=== PATIENT | male | born 1925 | race Caucasian/White ===

== ENCOUNTER 2016-11-21 14:17 | Emergency (ER) | payer MEDICARE ==
--- NOTE | 2016-11-21 14:57 | ER Document Report ---
ED Fall - General Chief Complaint: Back Injury Stated Complaint: FALL LEG AND BACK PAIN Mode of Arrival: Medic Information source: Patient TRAVEL OUTSIDE OF THE [place] IN LAST 30 DAYS: No - HPI Patient complains to provider of: FALL, BACK PAIN Occurred: Just prior to arrival Where: Home Context: Tripped, Fell from standing Associated symptoms: None. denies: Lost consciousness, Became dizzy/fainted Location of injury/pain: Back - R. LOWER Quality of pain: Dull, Sharp - WHEN MOVING Severity: Moderate Prehospital interventions: IV. No: C-collar, Backboard Notes: Patient fell and struck wall with such force that the wallboard was broken. - Related data Allergies/Adverse Reactions: No Known Allergies Allergy (Verified 11/21/16 14:30) Past Medical History - General Information source: Patient - Social History Smoking Status: Never Smoker Cigarette use (# per day): No Chew tobacco use (# tins/day): No Frequency of alcohol use: Rare Drug Abuse: None Family History: Reviewed & Not Pertinent Patient has suicidal ideation: No Patient has homicidal ideation: No - Past Medical History Cardiac Medical History: Reports: Hx Hypertension Pulmonary Medical History: Reports: None Endocrine Medical History: Reports: Hx Diabetes Mellitus Type 2 Renal/ Medical History: Reports: Hx Benign Prostatic Hyperplasia Malignancy Medical History: Reports None GI Medical History: Reports: None Musculoskeltal Medical History: Reports Hx Arthritis Psychiatric Medical History: Reports: Hx Depression Past Surgical History: Reports: Hx Cholecystectomy, Hx Orthopedic Surgery - right knee replacement. Denies: Hx Open Heart Surgery - Immunizations Hx Diphtheria, Pertussis, Tetanus Vaccination: No Hx Pneumococcal Vaccination: 07/02/09 Review of Systems - Review of Systems Constitutional: No symptoms reported EENT: No symptoms reported Cardiovascular: No symptoms reported Respiratory: No symptoms reported Gastrointestinal: No symptoms reported Genitourinary: No symptoms reported Musculoskeletal: See HPI. denies: Neck pain Skin: No symptoms reported Neurological/Psychological: No symptoms reported Physical Exam - Vital signs Vitals: Resp 20 11/21/16 14:20 Interpretation: Hypertensive. No: Tachycardic, Tachypneic - General General appearance: Appears well, Alert In distress: None Notes: OBVIOUS PAIN W/ MOVEMENT OF TORSO - HEENT Head: Normocephalic Eyes: Normal Conjunctiva: Normal Ears: Normal Nasal: Normal Mouth/Lips: Normal Mucous membranes: Normal Neck: Normal, Supple - Respiratory Respiratory status: No respiratory distress - Cardiovascular Rhythm: Regular - Abdominal Inspection: Normal Distension: No distension - Back Back: Normal, Tender - R. CVA AND LUMBAR PARASPINOUS - Extremities General upper extremity: Normal inspection General lower extremity: Normal inspection - Neurological Neuro grossly intact: Yes Cognition: Normal Orientation: AAOx4 - Psychological Associated symptoms: Normal affect, Normal mood - Skin Skin Temperature: Warm Skin Moisture: Dry Skin Color: Normal Skin Turgor: Elastic Course - Vital Signs Vital signs: Temp Pulse Resp BP Pulse Ox 97.5 F 77 20 158/56 H 96 11/21/16 14:29 11/21/16 14:29 11/21/16 14:29 11/21/16 14:29 11/21/16 14:29 - Laboratory Result Diagrams: 11/21/16 15:09 11/21/16 15:09 Laboratory results interpreted by me: 11/21/16 11/21/16 15:09 15:09 RBC 4.31 L Hgb 12.0 L Hct 36.2 L RDW 15.0 H BUN 35 H Discharge - Discharge Clinical Impression: Fall at home Qualifiers: Encounter type: initial encounter Qualified Code(s): W19.XXXA - Unspecified fall, initial encounter; Y92.099 - Unspecified place in other non-institutional residence as the place of occurrence of the external cause Contusion of lower back Qualifiers: Encounter type: initial encounter Qualified Code(s): S30.0XXA - Contusion of lower back and pelvis, initial encounter Condition: Stable Disposition: HOME, SELF-CARE Instructions: Ice Packs ([facility]), Low Back Pain ([facility]), Oral Narcotic Medication ( [facility]), Contusion ([facility]) Additional Instructions: REST, AVOID PAINFUL ACTIVITY. ICE PACKS TO PAINFUL AREAS TO REDUCE PAIN AND SWELLING. TAKE TYLENOL IF NEEDED FOR PAIN RELIEF (OR NORCO FOR MORE SEVERE PAIN). FOLLOW UP WITH YOUR PRIMARY CARE PROVIDER IN 3-5 DAYS. RETURN TO THE EMERGENCY DEPARTMENT IF YOU HAVE NEW OR WORSENING PROBLEMS, ANY TIME. Referrals: MACEY REIS MD [ACTIVE STAFF] - Follow up in 3-5 days
[2016-11-21 15:28] LABS: ABSOLUTE EOSINOPHILS # (AUTO) 0.2 10^3/uL (0.0-0.6); ABSOLUTE LYMPHOCYTES (AUTO) 1.8 10^3/uL (0.5-4.7); ABSOLUTE NEUT (AUTO) 6.6 10^3/uL (1.7-8.2); BASOPHILS % (AUTO) 0.2 % (0-2); EOSINOPHILS % (AUTO) 2.4 % (0-6); HEMATOCRIT 36.2 % (37.9-51.0); HGB HCT DIFFERENCE -0.2; LYMPHOCYTES % (AUTO) 18.8 % (13-45); MEAN CORPUSCULAR HEMOGLOBIN 27.9 pg (27.0-33.4); MEAN CORPUSCULAR HGB CONC 33.2 g/dL (32.0-36.0); MEAN CORPUSCULAR VOLUME 84 fl (80-97); MONOCYTES % (AUTO) 9.9 % (3-13); RED BLOOD COUNT 4.31 10^6/uL (4.35-5.55); SEGMENTED NEUTROPHILS % (AUTO) 68.7 % (42-78); WHITE BLOOD COUNT 9.6 10^3/uL (4.0-10.5)
[2016-11-21 15:45] LABS: ALANINE AMINOTRANSFERASE 28 U/L (21-72); ALBUMIN 4.2 g/dL (3.5-5.0); ALKALINE PHOSPHATASE 70 U/L (38-126); ANION GAP 12 (5-19); ASPARTATE AMINO TRANSFERASE 25 U/L (17-59); BILIRUBIN,TOTAL 0.4 mg/dL (0.2-1.3); BLOOD UREA NITROGEN 35 mg/dL (7-20); CALCIUM 9.4 mg/dL (8.4-10.2); CARBON DIOXIDE 27 mmol/L (22-30); CHLORIDE 105 mmol/L (98-107); CREATININE RESULT 0.88 mg/dL (0.52-1.25); GLUCOSE 108 mg/dL (75-110); POTASSIUM 4.6 mmol/L (3.6-5.0); SODIUM 143.8 mmol/L (137-145); TOTAL PROTEIN 6.9 g/dL (6.3-8.2)
[2016-11-21] MEDS ORDERED: HYDROMORPHONE HCL INJ/PF 2 MG/ML AMPULE IV ONE (18:17)
[2016-11-21] MEDS ORDERED: ONDANSETRON HCL INJ/PF 4 MG/2 ML SDV IV ONE (18:17)
[2016-11-21 19:11] VITALS: BP 176/70
== END 2016-11-21 19:10 | disposition home or self-care (01) ==
LOC: ER 14:17
DX: S30.0XXA Contusion of lower back and pelvis, initial encounter (principal); R42 Dizziness and giddiness; W01.198A Fall on same level from slipping, tripping and stumbling with subsequent striking against other object, initial encounter; Y92.009 Unspecified place in unspecified non-institutional (private) residence as the place of occurrence of the external cause; I10 Essential (primary) hypertension; E11.9 Type 2 diabetes mellitus without complications; Z96.651 Presence of right artificial knee joint; Z90.49 Acquired absence of other specified parts of digestive tract
CPT/HCPCS: 99284; 96374; 96375; 36415; 85025; 80053; 74177; J1170; J2405

== ENCOUNTER 2016-11-22 19:48 | Emergency (ER) | payer MEDICARE ==
[2016-11-22] MEDS ORDERED: NORMAL SALINE 1000 ML 1,000 ML IV ONE ×2 (20:08→23:28)
--- NOTE | 2016-11-22 20:09 | ER Document Report ---
ED General - General Stated Complaint: GENERAL WEAKNESS Time seen by provider: 20:00 Notes: Patient is an 89-year-old male that comes by EMS for chief complaint of weakness and fall. Patient lives at home by himself, he was found this morning by a friend on the floor after he slid out of his recliner and could not get up , they helped back into his chair, when EMS came patient had again slid out of his chair onto the floor and could not get up. Patient has past history of type II diabetes, hypertension, ankylosing spondylitis, and peripheral neuropathy. Patient uses a walker to get around. Friend reported to EMS that patient seemed to have slurred speech for the past week. Patient states he is very weak and he is sore in his back from a fall yesterday (which he was evaluated here for). He denies head injury, headache, neck pain, chest pain, fever, shortness of breath, vomiting, headache, focal numbness or weakness. TRAVEL OUTSIDE OF THE [place] IN LAST 30 DAYS: No - Related Data Allergies/Adverse Reactions: No Known Allergies Allergy (Verified 11/21/16 14:30) Past Medical History - General Information source: Patient - Social History Smoking Status: Never Smoker Frequency of alcohol use: None Drug Abuse: None Lives with: Alone Family History: Reviewed & Not Pertinent - Past Medical History Cardiac Medical History: Reports: Hx Hypertension Endocrine Medical History: Reports: Hx Diabetes Mellitus Type 2 Renal/ Medical History: Reports: Hx Benign Prostatic Hyperplasia Musculoskeltal Medical History: Reports Hx Arthritis Psychiatric Medical History: Reports: Hx Depression Past Surgical History: Reports: Hx Cholecystectomy, Hx Orthopedic Surgery - right knee replacement. Denies: Hx Open Heart Surgery - Immunizations Hx Diphtheria, Pertussis, Tetanus Vaccination: No Hx Pneumococcal Vaccination: 07/02/09 Review of Systems - Review of Systems Constitutional: See HPI EENT: No symptoms reported Cardiovascular: No symptoms reported Respiratory: No symptoms reported Gastrointestinal: No symptoms reported Genitourinary: No symptoms reported Male Genitourinary: No symptoms reported Musculoskeletal: See HPI Skin: No symptoms reported Hematologic/Lymphatic: No symptoms reported Neurological/Psychological: See HPI Physical Exam - Vital signs Vitals: Temp Pulse Resp BP Pulse Ox 98.2 F 74 16 152/64 H 98 11/22/16 20:30 11/22/16 20:30 11/22/16 20:30 11/22/16 20:30 11/22/16 20:30 Interpretation: Normal - General General appearance: Appears well In distress: None - HEENT Head: Normocephalic, Atraumatic Eyes: Normal Conjunctiva: Normal Extraocular movements intact: Yes Eyelashes: Normal Pupils: PERRL External canal: Normal Tympanic membrane: Normal Sinus: Normal Mouth/Lips: Normal Mucous membranes: Dry - Patient with dry lips, parched tongue, difficulty speaking easily because of the dryness of his mouth Pharynx: Normal Neck: Normal - Respiratory Respiratory status: No respiratory distress Chest status: Nontender Breath sounds: Normal Chest palpation: Normal - Cardiovascular Rhythm: Regular Heart sounds: Normal auscultation Murmur: No - Abdominal Inspection: Normal Distension: No distension Bowel sounds: Normal Tenderness: Nontender Organomegaly: No organomegaly - Back Back: Normal, Nontender - Extremities General upper extremity: Normal inspection, Nontender, Normal ROM, Normal strength General lower extremity: Other - Abrasions to the right lower extremity, mild tenderness over the left knee, otherwise unremarkable - Neurological Neuro grossly intact: Yes Cognition: Normal Orientation: AAOx4 Henri Coma Scale Eye Opening: Spontaneous Henri Coma Scale Verbal: Oriented [place] Coma Scale Motor: Obeys Commands Henri Coma Scale Total: 15 Speech: Normal Cranial nerves: Normal Cerebellar coordination: Other - Slight instability when standing Motor strength normal: LUE, RUE, LLE, RLE 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 Patient appears very dry on examination, given IV fluid boluses. Afterwards he does state he feels improved. Has pain in his back, had a normal CAT scan of the abdomen and pelvis yesterday, ambulates with difficulty and pain. Patient states he is uncomfortable going home tonight. Patient states he does have home health at his house for about 6 hours a day, requests to go home in the morning, also requests to speak to someone about his options, states that he is thinking maybe he and his son need to work out a better living situation, although he states he has already tried assisted living. Patient also has pain medications he takes at home. On reevaluation patient with no complaints, states that he would like to stay until at least the morning still. I do not have any admission criteria for patient to the hospital, I was able to stand patient without difficulty although I do not have a walker for patient to use. - Vital Signs Vital signs: Temp Pulse Resp BP Pulse Ox 97.4 F 67 16 145/56 H 90 L 11/23/16 01:52 11/23/16 01:52 11/23/16 04:31 11/23/16 04:31 11/23/16 04:31 - Laboratory Result Diagrams: 11/22/16 20:45 11/22/16 20:45 Laboratory results interpreted by me: 11/22/16 11/22/16 11/23/16 20:45 20:45 02:10 Hgb 12.4 L RDW 15.1 H BUN 27 H Glucose 128 H Urine Blood SMALL H Urine Ascorbic Acid 40 H Discharge - Discharge Clinical Impression: Weakness Back pain Qualifiers: Back pain location: low back pain Chronicity: unspecified Back pain laterality : bilateral Sciatica presence: without sciatica Qualified Code(s): M54.5 - Low back pain Condition: Stable Disposition: HOME, SELF-CARE Additional Instructions: Your workup today does not show any concerning abnormalities. Monitoring does not show any abnormalities. I am concerned you are overmedicated, I recommend you continue your pain medication because of your fall, however I recommend that you either reduce or stop your gabapentin. Please follow-up with your provider within the next day or so to adjust further and discuss assisted living. Return to the emergency department for any concerning or worsening symptoms including fever, shortness of breath, chest pain, dizziness, etc. Referrals: MACEY REIS MD [Primary Care Provider] - Follow up as needed
[2016-11-22 21:02] LABS: ABSOLUTE BASOPHILS # (AUTO) 0.1 10^3/uL (0.0-0.2); ABSOLUTE EOSINOPHILS # (AUTO) 0.1 10^3/uL (0.0-0.6); ABSOLUTE LYMPHOCYTES (AUTO) 1.5 10^3/uL (0.5-4.7); ABSOLUTE MONOCYTES (AUTO) 0.9 10^3/uL (0.1-1.4); BASOPHILS % (AUTO) 0.5 % (0-2); EOSINOPHILS % (AUTO) 0.7 % (0-6); HEMATOCRIT 37.9 % (37.9-51.0); HEMOGLOBIN 12.4 g/dL (13.5-17.0); HGB HCT DIFFERENCE -0.7; LYMPHOCYTES % (AUTO) 15.5 % (13-45); MEAN CORPUSCULAR HEMOGLOBIN 27.2 pg (27.0-33.4); MEAN CORPUSCULAR HGB CONC 32.7 g/dL (32.0-36.0); MEAN CORPUSCULAR VOLUME 83 fl (80-97); MONOCYTES % (AUTO) 9.2 % (3-13); RED BLOOD COUNT 4.56 10^6/uL (4.35-5.55); RED CELL DISTRIBUTION WIDTH 15.1 % (11.5-14.0); SEGMENTED NEUTROPHILS % (AUTO) 74.1 % (42-78); WHITE BLOOD COUNT 9.4 10^3/uL (4.0-10.5)
[2016-11-22 21:25] LABS: ALANINE AMINOTRANSFERASE 28 U/L (21-72); ALBUMIN 4.2 g/dL (3.5-5.0); ALKALINE PHOSPHATASE 73 U/L (38-126); ANION GAP 8 (5-19); ASPARTATE AMINO TRANSFERASE 27 U/L (17-59); BILIRUBIN,TOTAL 0.6 mg/dL (0.2-1.3); BLOOD UREA NITROGEN 27 mg/dL (7-20); CALCIUM 9.7 mg/dL (8.4-10.2); CARBON DIOXIDE 29 mmol/L (22-30); CHLORIDE 104 mmol/L (98-107); CREATINE KINASE 60 U/L (55-170); CREATININE RESULT 0.72 mg/dL (0.52-1.25); GLUCOSE 128 mg/dL (75-110); POTASSIUM 4.6 mmol/L (3.6-5.0); SODIUM 141.3 mmol/L (137-145); TOTAL PROTEIN 6.9 g/dL (6.3-8.2)
[2016-11-22 21:40] LABS: TROPONIN I < 0.012 ng/mL
[2016-11-23 02:59] LABS: APPEARANCE,URINE CLEAR; BILIRUBIN,URINE NEGATIVE (NEGATIVE); GLUCOSE, URINE NEGATIVE (NEGATIVE); KETONES,URINE NEGATIVE (NEGATIVE); LEUKOCYTE ESTERASE,URINE NEGATIVE (NEGATIVE); NITRITE,URINE NEGATIVE (NEGATIVE); PROTEIN,URINE NEGATIVE (NEGATIVE); URINE SPECIFIC GRAVITY 1.015; UROBILINOGEN,URINE NEGATIVE mg/dL (<2.0)
[2016-11-23] MEDS ORDERED: FAMOTIDINE 20 MG TABLET PO ONE (07:48)
[2016-11-23] MEDS ORDERED: ONDANSETRON 4 MG TAB.RAPDIS PO ONE (07:48)
[2016-11-23] MEDS ORDERED: MAG HYDROX/AL HYDROX/SIMETH SUSP 30 ML UDCUP PO ONE (07:48)
[2016-11-23 13:10] VITALS: BP 154/61
== END 2016-11-23 13:12 | disposition home or self-care (01) ==
LOC: ER 19:48
DX: R53.1 Weakness (principal); M54.5 Low back pain; Z60.2 Problems related to living alone; I10 Essential (primary) hypertension; E11.9 Type 2 diabetes mellitus without complications; Z90.49 Acquired absence of other specified parts of digestive tract; Z96.651 Presence of right artificial knee joint
CPT/HCPCS: 99285; 96360; 51701; 36415; 82553; 82550; 85025; 80053; 81001; 84484; 74022; 70450; J7030

== ENCOUNTER 2016-11-26 11:18 | Emergency (ER) | payer MEDICARE ==
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
[2016-11-26] MEDS ORDERED: LIDOCAINE 1%/EPINEPHRINE INJ 20 ML VIAL INJ ONE (13:18)
[2016-11-26] MEDS ORDERED: CEPHALEXIN 500 MG CAPSULE PO ONE (14:22)
[2016-11-26 15:04] VITALS: BP 151/61
[2016-11-27] MEDS ORDERED: MAGNESIUM HYDROXIDE SUSP 30 ML UDCUP PO PRN (05:07)
[2016-11-27] MEDS ORDERED: IPRATROPIUM/ALBUTEROL 0.5-2.5 MG/3 ML AMPUL NEB PRN (05:07)
[2016-11-27] MEDS ORDERED: ONDANSETRON HCL INJ/PF 4 MG/2 ML SDV IV PRN (05:07)
[2016-11-27] MEDS ORDERED: ACETAMINOPHEN 325 MG TABLET PO PRN (05:07)
[2016-11-27] MEDS ORDERED: NORMAL SALINE 1000 ML 1,000 ML IV SCH (05:15)
[2016-11-27] MEDS ORDERED: DULOXETINE HCL 30 MG CAPSULE.DR PO SCH (05:45)
[2016-11-27] MEDS ORDERED: HEPARIN SOD (PORCINE) 5,000 UNIT/ML 1 ML SYRINGE SUBCUT SCH (06:00)
[2016-11-27] MEDS ORDERED: DOCUSATE SODIUM 100 MG CAPSULE PO SCH (10:00)
[2016-11-27] MEDS ORDERED: AMLODIPINE BESYLATE 10 MG TABLET PO SCH (10:00)
[2016-11-27] MEDS ORDERED: TAMSULOSIN HCL 0.4 MG CAP.SR.24H PO SCH (18:00)
== END 2016-11-26 15:00 | disposition home or self-care (01) ==
LOC: ER 11:18
PROC: 0HQ0XZZ Repair Scalp Skin, External Approach (ICD-10-PCS; principal; 2016-11-26)
DX: S01.02XA Laceration with foreign body of scalp, initial encounter (principal); W19.XXXA Unspecified fall, initial encounter
CPT/HCPCS: 99284; 70450; 72125; 12004; A9270; J3490

== ENCOUNTER 2016-11-26 22:09 | Observation (INO) | payer MEDICARE ==
[2016-11-26 23:28] LABS: ABSOLUTE EOSINOPHILS # (AUTO) 0.1 10^3/uL (0.0-0.6); ABSOLUTE LYMPHOCYTES (AUTO) 1.9 10^3/uL (0.5-4.7); ABSOLUTE MONOCYTES (AUTO) 1.2 10^3/uL (0.1-1.4); ABSOLUTE NEUT (AUTO) 8.5 10^3/uL (1.7-8.2); BASOPHILS % (AUTO) 0.2 % (0-2); EOSINOPHILS % (AUTO) 0.9 % (0-6); HEMATOCRIT 34.4 % (37.9-51.0); HEMOGLOBIN 11.4 g/dL (13.5-17.0); HGB HCT DIFFERENCE -0.2; LYMPHOCYTES % (AUTO) 15.9 % (13-45); MEAN CORPUSCULAR HEMOGLOBIN 27.2 pg (27.0-33.4); MEAN CORPUSCULAR HGB CONC 33.2 g/dL (32.0-36.0); MEAN CORPUSCULAR VOLUME 82 fl (80-97); MONOCYTES % (AUTO) 10.3 % (3-13); RED BLOOD COUNT 4.21 10^6/uL (4.35-5.55); RED CELL DISTRIBUTION WIDTH 14.9 % (11.5-14.0); SEGMENTED NEUTROPHILS % (AUTO) 72.7 % (42-78); WHITE BLOOD COUNT 11.7 10^3/uL (4.0-10.5)
[2016-11-26 23:39] LABS: ALANINE AMINOTRANSFERASE 32 U/L (21-72); ALBUMIN 4.2 g/dL (3.5-5.0); ALKALINE PHOSPHATASE 74 U/L (38-126); ANION GAP 13 (5-19); ASPARTATE AMINO TRANSFERASE 24 U/L (17-59); BILIRUBIN,TOTAL 0.4 mg/dL (0.2-1.3); BLOOD UREA NITROGEN 27 mg/dL (7-20); CALCIUM 9.5 mg/dL (8.4-10.2); CARBON DIOXIDE 28 mmol/L (22-30); CHLORIDE 102 mmol/L (98-107); CREATINE KINASE 119 U/L (55-170); CREATININE RESULT 0.82 mg/dL (0.52-1.25); POTASSIUM 4.1 mmol/L (3.6-5.0); SODIUM 142.9 mmol/L (137-145); TOTAL PROTEIN 6.8 g/dL (6.3-8.2)
[2016-11-26 23:41] LABS: GLUCOSE 136 mg/dL (75-110)
[2016-11-26 23:52] LABS: CREATINE KINASE MB 3.42 ng/mL (<4.55)
[2016-11-26 23:54] LABS: TROPONIN I < 0.012 ng/mL
--- NOTE | 2016-11-27 01:23 | ER Document Report ---
ED Fall - General Chief Complaint: Fall Stated Complaint: FALL,HEAD INJURY Time seen by provider: 01:20 Mode of Arrival: Medic Information source: Patient TRAVEL OUTSIDE OF THE [place] IN LAST 30 DAYS: No - HPI Patient complains to provider of: frequent falls, head injury, generalized weakness Occurred: This morning Where: Home Context: Lost balance, Fell from standing Associated symptoms: None Location of injury/pain: Head Quality of pain: Achy Notes: Patient is an 89-year-old male presenting to the emergency room for the second time today complaining of fall with generalized weakness, inability to ambulate without falling, earlier today he had a head injury that required significant suture repair, had imaging that showed no acute findings, he was returned home and reports approximately an hour later he tried to get up and walk in his home , but felt too weak and fell to the ground once again, was unable to get up off the floor without EMS assistance, states he has a friend who checks on him daily who has been sick for the past 2 days and unable to take care of him, otherwise he has no family in the area he denies any pain from his second fall this evening, he is moving all extremities without difficulty, denies any fevers , no nausea or vomiting, no chest pain or shortness of breath - Related data Allergies/Adverse Reactions: No Known Allergies Allergy (Verified 11/21/16 14:30) Past Medical History - General Information source: Patient - Social History Smoking Status: Former Smoker Family History: Reviewed & Not Pertinent - Past Medical History Cardiac Medical History: Reports: Hx Hypertension Endocrine Medical History: Reports: Hx Diabetes Mellitus Type 2 Renal/ Medical History: Reports: Hx Benign Prostatic Hyperplasia Musculoskeltal Medical History: Reports Hx Arthritis Psychiatric Medical History: Reports: Hx Depression Past Surgical History: Reports: Hx Cholecystectomy, Hx Orthopedic Surgery - right knee replacement - Immunizations Hx Diphtheria, Pertussis, Tetanus Vaccination: No Hx Pneumococcal Vaccination: 07/02/09 Review of Systems - Review of Systems Constitutional: Weakness EENT: No symptoms reported Cardiovascular: No symptoms reported Respiratory: No symptoms reported Gastrointestinal: No symptoms reported Genitourinary: No symptoms reported Male Genitourinary: No symptoms reported Musculoskeletal: No symptoms reported Skin: No symptoms reported Hematologic/Lymphatic: No symptoms reported Neurological/Psychological: No symptoms reported -: Yes All other systems reviewed and negative Physical Exam - Vital signs Vitals: Resp BP 15 133/64 H 11/26/16 22:23 11/26/16 22:23 Interpretation: Normal - General General appearance: Appears well, Alert In distress: None - HEENT Head: Normocephalic, Other - Patient has a large sutured laceration to his right parietal and occipital scalp Eyes: Normal Pupils: PERRL - Respiratory Respiratory status: No respiratory distress Chest status: Nontender Breath sounds: Normal Chest palpation: Normal - Cardiovascular Rhythm: Regular Heart sounds: Normal auscultation Murmur: No - Abdominal Inspection: Normal Distension: No distension Bowel sounds: Normal Tenderness: Nontender Organomegaly: No organomegaly - Back Back: Normal, Nontender - Extremities General upper extremity: Normal inspection, Nontender, Normal color, Normal ROM , Normal temperature General lower extremity: Normal inspection, Nontender, Normal color, Normal ROM , Normal temperature. No: Nadia's sign - Neurological Neuro grossly intact: Yes Cognition: Normal Orientation: AAOx4 Henri Coma Scale Eye Opening: Spontaneous Henri Coma Scale Verbal: Oriented [place] Coma Scale Motor: Obeys Commands [place] Coma Scale Total: 15 Speech: Normal Motor strength normal: LUE, RUE, LLE, RLE Sensory: Normal - Psychological Associated symptoms: Normal affect, Normal mood - Skin Skin Temperature: Warm Skin Moisture: Dry Skin Color: Normal Course - Re-evaluation Re-evalutation: 11/27/16 03:43 EMS reports that they were called to the house on 5 separate occasions this evening to help pick patient up off the floor, he reports he is too weak to stand up on his own and ambulate, he has no family in the area and lives alone, therefore he appears to be unsafe to return home on his own, I discussed the possibility of short-term rehabilitation placement with patient and he seems open to this at the present time, he was discussed with the hospitalist who requests a repeat CT scan of the head be performed to make sure nothing has evolved since his earlier injury, this has been ordered, if the result comes back negative patient will be admitted to the hospitalist service as a telemetry observation for further evaluation and treatment with possible rehabilitation placement until patient is safe to return home 11/27/16 04:48 CT scan of the head shows no evidence of internal injury - Vital Signs Vital signs: Temp Pulse Resp BP Pulse Ox 65 17 143/75 H 91 L 11/27/16 03:13 11/27/16 00:01 02/04/17 03:13 11/27/16 00:01 - Laboratory Result Diagrams: 11/26/16 23:12 11/26/16 23:12 Laboratory results interpreted by me: 11/26/16 11/26/16 11/27/16 23:12 23:12 01:20 WBC 11.7 H RBC 4.21 L Hgb 11.4 L Hct 34.4 L RDW 14.9 H Absolute Neutrophils 8.5 H BUN 27 H Glucose 136 H Urine Protein 30 H Urine Ketones TRACE H Urine Ascorbic Acid 40 H - Diagnostic Test Radiology reviewed: Image reviewed, Reports reviewed - EKG Interpretation by Me EKG shows normal: Sinus rhythm Rate: Normal Rhythm: NSR Discharge - Discharge Clinical Impression: Weakness, Frequent falls, Unsteady gait Head injury Qualifiers: Encounter type: initial encounter Qualified Code(s): S09.90XA - Unspecified injury of head, initial encounter Scalp laceration Qualifiers: Encounter type: initial encounter Qualified Code(s): S01.01XA - Laceration without foreign body of scalp, initial encounter Condition: Fair Disposition: ADMITTED OBSERVATION Admitting Provider: Hospitalist Unit Admitted: Telemetry
[2016-11-27 02:10] LABS: APPEARANCE,URINE CLEAR; BILIRUBIN,URINE NEGATIVE (NEGATIVE); GLUCOSE, URINE NEGATIVE (NEGATIVE); KETONES,URINE TRACE mg/dL (NEGATIVE); LEUKOCYTE ESTERASE,URINE NEGATIVE (NEGATIVE); NITRITE,URINE NEGATIVE (NEGATIVE); PROTEIN,URINE 30 mg/dL (NEGATIVE); URINE SPECIFIC GRAVITY 1.023; UROBILINOGEN,URINE NEGATIVE mg/dL (<2.0)
[2016-11-27] MEDS ORDERED: IBUPROFEN 600 MG TABLET PO ONE (02:32)
[2016-11-27] MEDS ORDERED: MINERAL OIL ENEMA 133 ML PR ONE ×2 (06:44→12:15)
--- NOTE | 2016-11-27 06:58 | PDOC H&P ---
History of Present Illness Admission Date/PCP: 11/27/16 04:57 Patient complains of: Recurrent fall History of Present Illness: LIBERTY TIRADO is a 89 year old male with a past medical history of BPH, hypertension, neuropathy and recurrent falls at home where he lives independently. Earlier in the day he was seen in the emergency room after sustaining a fall with a large 10 cm right occipital laceration requiring suturing and otherwise had an unremarkable workup and was discharged home only to have several more falls calling emergency services 5 and finally agrees to return to the emergency room. Where his found to have abdominal pain with severe constipation, leukocytosis, tachycardia and prerenal azotemia. Patient states he has recently started an 15 mg dose of Percocet every 6 hours when necessary for neuropathy. Patient agrees that this may be contributing to his falls and constipation. Is referred to the hospitalist for observation opiate weaning, fecal disimpaction and a physical therapy evaluation. Past Medical History Cardiac Medical History: Reports: Hypertension Neurological Medical History: Reports: Other - Peripheral neuropathy Endocrine Medical History: Reports: Diabetes Mellitus Type 2 Renal/ Medical History: Reports: Other - BPH Musculoskeltal Medical History: Reports: Arthritis Psychiatric Medical History: Reports: Depression Hematology: Denies: Anemia, Sickle Cell Disease Past Surgical History Past Surgical History: Reports: Cholecystectomy, Orthopedic Surgery - right knee replacement Social History Information Source: Patient Lives with: Alone Smoking Status: Former Smoker Frequency of Alcohol Use: None Hx Recreational Drug Use: No Drugs: None Hx Prescription Drug Abuse: No - Advance Directive Resuscitation Status: Full Code Family History Family History: Arthritis, Hypertension Parental Family History Reviewed: Yes Children Family History Reviewed: Yes Sibling(s) Family History Reviewed.: Yes Medication/Allergy Home Medications: Duloxetine HCl 60 mg PO BID 08/08/14 Tamsulosin HCl [Flomax] 0.4 mg PO DAILY 08/08/14 Gabapentin [Neurontin 400 mg Capsule] 800 mg PO Q8 PRN 03/26/15 Oxycodone HCl/Acetaminophen [Oxycodon-Acetaminophen 7.5-325] 15 mg PO QID PRN Ondansetron HCl [Zofran 4 mg Tablet] 1 tab PO Q6 PRN 09/19/16 Amlodipine Besylate [Norvasc 10 mg Tablet] 10 mg PO DAILY #30 tablet 10/21/16 Cephalexin Monohydrate [Keflex 500 mg Capsule] 500 mg PO QID #20 capsule Allergies/Adverse Reactions: No Known Allergies Allergy (Verified 11/21/16 14:30) Review of Systems Constitutional: PRESENT: anorexia, fatigue, weakness. ABSENT: chills, fever(s) , headache(s), weight gain, weight loss Eyes: ABSENT: visual disturbances Ears: ABSENT: hearing changes Cardiovascular: ABSENT: chest pain, dyspnea on exertion, edema, orthropnea, palpitations Respiratory: ABSENT: cough, hemoptysis Gastrointestinal: PRESENT: bloating, constipation. ABSENT: abdominal pain, diarrhea, hematemesis, hematochezia, nausea, vomiting Genitourinary: ABSENT: dysuria, hematuria Musculoskeletal: PRESENT: muscle weakness. ABSENT: joint swelling Integumentary: ABSENT: rash, wounds Neurological: PRESENT: numbness, tingling, weakness, other - Symptoms pertaining to the lower extremity. ABSENT: abnormal gait, abnormal speech, confusion, dizziness, focal weakness, syncope Psychiatric: ABSENT: anxiety, depression, homidical ideation, suicidal ideation Endocrine: ABSENT: cold intolerance, heat intolerance, polydipsia, polyuria Hematologic/Lymphatic: ABSENT: easy bleeding, easy bruising Physical Exam Vital Signs: Temp Pulse Resp BP Pulse Ox 65 12 143/75 H 91 L 11/27/16 03:13 11/27/16 06:00 11/27/16 03:13 11/27/16 06:00 General appearance: PRESENT: cooperative, disheveled, mild distress, well- developed Head exam: PRESENT: other - Large 10 cm laceration to the right occipital lobe with viv. ABSENT: atraumatic Eye exam: PRESENT: conjunctiva pink, EOMI, PERRLA, other - Pinpoint pupils. ABSENT: scleral icterus Ear exam: PRESENT: normal external ear exam Neck exam: ABSENT: carotid bruit, JVD, lymphadenopathy, thyromegaly Respiratory exam: PRESENT: clear to auscultation melvin. ABSENT: rales, rhonchi, wheezes Cardiovascular exam: PRESENT: RRR. ABSENT: diastolic murmur, rubs, systolic murmur Pulses: PRESENT: normal dorsalis pedis pul Vascular exam: PRESENT: pallor GI/Abdominal exam: PRESENT: diminished bowel sounds, distended, hypoactive bowel sounds, tenderness - Left lower quadrant pain Rectal exam: PRESENT: deferred Extremities exam: PRESENT: other - Loss of proprioception of the toes Neurological exam: PRESENT: alert, awake, oriented to person, oriented to place , oriented to time, oriented to situation, CN II-XII grossly intact. ABSENT: motor sensory deficit Psychiatric exam: PRESENT: appropriate affect, normal mood. ABSENT: homicidal ideation, suicidal ideation Skin exam: PRESENT: other - Multiple lacerations of various stages of healing to the lower extremity bilaterally Results Impressions: Chest X-Ray 11/27/16 01:15 IMPRESSION: NO SIGNIFICANT RADIOGRAPHIC FINDING IN THE CHEST. Head CT 11/27/16 03:43 IMPRESSION: No evidence of acute calvarial injury or intracranial hemorrhage. Interval removal of a previously described radiopaque retained foreign body within the right parietal scalp. Assessment & Plan - Diagnosis (1) Head injury Qualifiers: Encounter type: initial encounter Qualified Code(s): S09.90XA - Unspecified injury of head, initial encounter Is this a current diagnosis for this admission?: YesPlan: Secondary to multifactorial gait disorder, peripheral neuropathy and opiates. Scalp laceration stapled draining only minimally sanguinous. Obviously concerned for recurrent falls I will attempt opiate weaning obtain orthostatic blood pressures occupational and physical therapy consultation and consideration of discharge planning for rehabilitation (2) Frequent falls Is this a current diagnosis for this admission?: YesPlan: Please see #1 (3) Constipation Is this a current diagnosis for this admission?: YesPlan: Likely secondary to opiate use initiate weaning, mineral oil enema, lactulose and bowel regiment (4) Unsteady gait Is this a current diagnosis for this admission?: YesPlan: Please see #1 and PT consult (5) Peripheral neuropathy Qualifiers: Peripheral neuropathy type: polyneuropathy, unspecified Qualified Code(s): G62.9 - Polyneuropathy, unspecified Is this a current diagnosis for this admission?: YesPlan: Please see #1 with symptomatically management and physical therapy consult - Time Time Spent: 50 to 70 Minutes
[2016-11-27 07:08] LABS: CREATINE KINASE MB 2.95 ng/mL (<4.55)
[2016-11-27 07:15] LABS: TROPONIN I < 0.012 ng/mL
--- NOTE | 2016-11-27 09:22 | EKG REPORT ---
SEVERITY:- ABNORMAL ECG - SINUS RHYTHM WITH SINUS ARRHYTHMIA : Confirmed by: Car Nicholson 27-Nov-2016 09:21:56
[2016-11-27] MEDS: DULOXETINE HCL 30 MG CAPSULE.DR PO SCH ×2 (11:36→17:31)
[2016-11-27] MEDS: AMLODIPINE BESYLATE 10 MG TABLET PO SCH (11:40)
[2016-11-27] MEDS: GABAPENTIN 400 MG CAPSULE PO PRN ×3 (11:40→21:55)
[2016-11-27] MEDS: OXYCODONE-ACETAMINOPHEN 5-325 MG TABLET PO PRN ×2 (11:41→17:31)
[2016-11-27] MEDS: NORMAL SALINE 1000 ML 1,000 ML IV SCH ×2 (11:42→18:57)
[2016-11-27] MEDS ORDERED: DEXTROSE 40% GEL 15 GM TUBE PO PRN ×2 (13:43)
[2016-11-27] MEDS ORDERED: DEXTROSE 50%-WATER 25 GM/50 ML DISP.SYRIN IV PRN ×2 (13:43)
[2016-11-27] MEDS ORDERED: GLUCAGON,HUMAN RECOMB 1 MG INJ IM PRN (13:43)
--- NOTE | 2016-11-27 13:43 | PDOC PROGRESS REPORT ---
Subjective Progress Note for:: 11/27/16 Subjective:: Complains of pain on the right side of his head. Physical Exam Vital Signs: Temp Pulse Resp BP Pulse Ox 97.5 F 84 18 167/69 H 98 11/27/16 11:48 11/27/16 11:48 11/27/16 11:48 11/27/16 11:48 11/27/16 11:48 Intake & Output 11/26/16 11/27/16 11/28/16 06:59 06:59 06:59 Weight 102 kg General appearance: PRESENT: no acute distress Head exam: PRESENT: other - Dressing in place on the right side of his head. Eye exam: PRESENT: conjunctiva pink. ABSENT: scleral icterus Mouth exam: PRESENT: moist, tongue midline Neck exam: ABSENT: JVD Respiratory exam: PRESENT: clear to auscultation melvin. ABSENT: rales, rhonchi, wheezes Cardiovascular exam: PRESENT: RRR. ABSENT: diastolic murmur, rubs, systolic murmur GI/Abdominal exam: PRESENT: normal bowel sounds, soft. ABSENT: distended, guarding, mass, organolmegaly, rebound, tenderness Extremities exam: ABSENT: calf tenderness, clubbing, pedal edema Neurological exam: PRESENT: alert, awake, oriented to person, oriented to place , oriented to time, oriented to situation Psychiatric exam: PRESENT: appropriate affect Results Impressions: Chest X-Ray 11/27/16 01:15 IMPRESSION: NO SIGNIFICANT RADIOGRAPHIC FINDING IN THE CHEST. Head CT 11/27/16 03:43 IMPRESSION: No evidence of acute calvarial injury or intracranial hemorrhage. Interval removal of a previously described radiopaque retained foreign body within the right parietal scalp. Assessment & Plan - Diagnosis (1) Scalp laceration Qualifiers: Encounter type: initial encounter Qualified Code(s): S01.01XA - Laceration without foreign body of scalp, initial encounter Is this a current diagnosis for this admission?: YesPlan: The patient had a fall secondary to taking extra pain medication that he takes for his severe peripheral neuropathy. The patient will continue with as needed pain medications. (2) Peripheral neuropathy Qualifiers: Peripheral neuropathy type: polyneuropathy, unspecified Qualified Code(s): G62.9 - Polyneuropathy, unspecified Is this a current diagnosis for this admission?: YesPlan: The patient is on gabapentin as well as narcotics for his neuropathy. (3) Ankylosing spondylitis of cervical region Is this a current diagnosis for this admission?: YesPlan: The patient is having difficulty walking with frequent falls and will most likely need referral for rehabilitation. (4) Diabetes mellitus type II, controlled Qualifiers: Diabetes mellitus complication status: with unspecified complications Diabetes mellitus termite renewal inspector insulin use: without termite renewal inspector use Qualified Code(s): E11.8 - Type 2 diabetes mellitus with unspecified complications; Z79.4 - nursing home (current) use of insulin Is this a current diagnosis for this admission?: YesPlan: We'll check fingerstick blood sugars and cover with sliding scale insulin. - Time Time Spent with patient: 25-34 minutes - Inpatient Certification Medical Necessity: Need Close Monitoring Due to Risk of Patient Decompensation, Need for Pain Control
[2016-11-27] MEDS: INSULIN REG, HUMAN 100 UNIT/ML 3 ML VIAL (PYX) SUBCUT PRN (17:32)
[2016-11-27] MEDS: TAMSULOSIN HCL 0.4 MG CAP.SR.24H PO SCH (17:32)
[2016-11-28] MEDS: INSULIN REG, HUMAN 100 UNIT/ML 3 ML VIAL (PYX) SUBCUT PRN ×2 (00:28→12:15)
[2016-11-28 05:36] LABS: ABSOLUTE EOSINOPHILS # (AUTO) 0.1 10^3/uL (0.0-0.6); ABSOLUTE LYMPHOCYTES (AUTO) 1.6 10^3/uL (0.5-4.7); ABSOLUTE MONOCYTES (AUTO) 0.7 10^3/uL (0.1-1.4); BASOPHILS % (AUTO) 0.2 % (0-2); EOSINOPHILS % (AUTO) 1.2 % (0-6); HEMATOCRIT 31.9 % (37.9-51.0); HEMOGLOBIN 10.7 g/dL (13.5-17.0); HGB HCT DIFFERENCE 0.2; LYMPHOCYTES % (AUTO) 19.2 % (13-45); MEAN CORPUSCULAR HEMOGLOBIN 27.4 pg (27.0-33.4); MEAN CORPUSCULAR HGB CONC 33.5 g/dL (32.0-36.0); MEAN CORPUSCULAR VOLUME 82 fl (80-97); MONOCYTES % (AUTO) 8.2 % (3-13); RED BLOOD COUNT 3.91 10^6/uL (4.35-5.55); RED CELL DISTRIBUTION WIDTH 15.2 % (11.5-14.0); SEGMENTED NEUTROPHILS % (AUTO) 71.2 % (42-78); WHITE BLOOD COUNT 8.5 10^3/uL (4.0-10.5)
[2016-11-28 06:02] LABS: ANION GAP 9 (5-19); BLOOD UREA NITROGEN 16 mg/dL (7-20); CALCIUM 8.7 mg/dL (8.4-10.2); CARBON DIOXIDE 26 mmol/L (22-30); CHLORIDE 109 mmol/L (98-107); CREATININE RESULT 0.67 mg/dL (0.52-1.25); GLUCOSE 124 mg/dL (75-110); POTASSIUM 3.7 mmol/L (3.6-5.0); SODIUM 143.9 mmol/L (137-145)
[2016-11-28] MEDS: OXYCODONE-ACETAMINOPHEN 5-325 MG TABLET PO PRN ×3 (08:12→20:40)
[2016-11-28] MEDS: GABAPENTIN 400 MG CAPSULE PO PRN ×2 (08:13→17:16)
[2016-11-28] MEDS: DULOXETINE HCL 30 MG CAPSULE.DR PO SCH ×2 (09:38→17:15)
[2016-11-28] MEDS: AMLODIPINE BESYLATE 10 MG TABLET PO SCH (09:39)
--- NOTE | 2016-11-28 11:21 | PDOC PROGRESS REPORT ---
Subjective Progress Note for:: 11/28/16 Subjective:: Complains of pain on the right side of his head and neck. Physical Exam Vital Signs: Temp Pulse Resp BP Pulse Ox 98.3 F 80 18 177/62 H 95 11/28/16 07:00 11/28/16 07:00 11/28/16 07:00 11/28/16 07:00 11/28/16 07:00 Intake & Output 11/27/16 11/28/16 11/29/16 06:59 06:59 06:59 Intake Total 3922 654 Output Total 1905 Balance 2017 654 Weight 102 kg General appearance: PRESENT: no acute distress Eye exam: PRESENT: conjunctiva pink. ABSENT: scleral icterus Mouth exam: PRESENT: moist, tongue midline Neck exam: ABSENT: carotid bruit, JVD, lymphadenopathy, thyromegaly Respiratory exam: PRESENT: clear to auscultation melvin. ABSENT: rales, rhonchi, wheezes Cardiovascular exam: PRESENT: RRR. ABSENT: diastolic murmur, rubs, systolic murmur GI/Abdominal exam: PRESENT: normal bowel sounds, soft. ABSENT: distended, guarding, mass, organolmegaly, rebound, tenderness Extremities exam: PRESENT: full ROM. ABSENT: calf tenderness, clubbing, pedal edema Neurological exam: PRESENT: alert, awake, oriented to person, oriented to place , oriented to time, oriented to situation Psychiatric exam: PRESENT: appropriate affect Skin exam: PRESENT: other - Dressing in place on the right side of the head Results Laboratory Results: 11/28/16 04:56 11/28/16 04:56 11/28/16 11/28/16 04:56 04:56 WBC 8.5 RBC 3.91 L Hgb 10.7 L Hct 31.9 L MCV 82 MCH 27.4 MCHC 33.5 RDW 15.2 H Plt Count 246 Seg Neutrophils % 71.2 Lymphocytes % 19.2 Monocytes % 8.2 Eosinophils % 1.2 Basophils % 0.2 Absolute Neutrophils 6.0 Absolute Lymphocytes 1.6 Absolute Monocytes 0.7 Absolute Eosinophils 0.1 Absolute Basophils 0.0 Sodium 143.9 Potassium 3.7 Chloride 109 H Carbon Dioxide 26 Anion Gap 9 BUN 16 Creatinine 0.67 Est GFR ( Amer) > 60 Est GFR (Non-Af Amer) > 60 Glucose 124 H Calcium 8.7 11/27/16 11/27/16 13:08 19:23 Troponin I < 0.012 < 0.012 Impressions: Chest X-Ray 11/27/16 01:15 IMPRESSION: NO SIGNIFICANT RADIOGRAPHIC FINDING IN THE CHEST. Head CT 11/27/16 03:43 IMPRESSION: No evidence of acute calvarial injury or intracranial hemorrhage. Interval removal of a previously described radiopaque retained foreign body within the right parietal scalp. Assessment & Plan - Diagnosis (1) Scalp laceration Qualifiers: Encounter type: initial encounter Qualified Code(s): S01.01XA - Laceration without foreign body of scalp, initial encounter Is this a current diagnosis for this admission?: YesPlan: The patient had a fall secondary to taking extra pain medication that he takes for his severe peripheral neuropathy. The patient will continue with as needed pain medications. (2) Peripheral neuropathy Qualifiers: Peripheral neuropathy type: polyneuropathy, unspecified Qualified Code(s): G62.9 - Polyneuropathy, unspecified Is this a current diagnosis for this admission?: YesPlan: The patient is on gabapentin as well as narcotics for his neuropathy. (3) Ankylosing spondylitis of cervical region Is this a current diagnosis for this admission?: YesPlan: The patient is having difficulty walking with frequent falls and will most likely need referral for rehabilitation. (4) Diabetes mellitus type II, controlled Qualifiers: Diabetes mellitus complication status: with unspecified complications Diabetes mellitus usp insulin use: without usp use Qualified Code(s): E11.8 - Type 2 diabetes mellitus with unspecified complications; Z79.4 - halfway (current) use of insulin Is this a current diagnosis for this admission?: YesPlan: We'll check fingerstick blood sugars and cover with sliding scale insulin. Sugars have ranged from 129-192. - Time Time Spent with patient: 25-34 minutes - Inpatient Certification Medical Necessity: Need Close Monitoring Due to Risk of Patient Decompensation - Plan Summary Plan Summary: We'll consult discharge planning on Tuesday for consideration of correction facility for rehabilitation.
[2016-11-28] MEDS ORDERED: LACTULOSE SYRUP 20 GM/30 ML UDCUP PO PRN (14:35)
[2016-11-28] MEDS: TAMSULOSIN HCL 0.4 MG CAP.SR.24H PO SCH (17:15)
[2016-11-29] MEDS: GABAPENTIN 400 MG CAPSULE PO PRN ×2 (03:21→16:42)
[2016-11-29] MEDS: OXYCODONE-ACETAMINOPHEN 5-325 MG TABLET PO PRN ×2 (03:21→20:25)
[2016-11-29 06:03] LABS: ABSOLUTE EOSINOPHILS # (AUTO) 0.1 10^3/uL (0.0-0.6); ABSOLUTE LYMPHOCYTES (AUTO) 1.8 10^3/uL (0.5-4.7); ABSOLUTE MONOCYTES (AUTO) 0.8 10^3/uL (0.1-1.4); ABSOLUTE NEUT (AUTO) 5.6 10^3/uL (1.7-8.2); BASOPHILS % (AUTO) 0.1 % (0-2); EOSINOPHILS % (AUTO) 1.8 % (0-6); HEMATOCRIT 33.7 % (37.9-51.0); HEMOGLOBIN 11.3 g/dL (13.5-17.0); HGB HCT DIFFERENCE 0.2; LYMPHOCYTES % (AUTO) 22.1 % (13-45); MEAN CORPUSCULAR HEMOGLOBIN 27.2 pg (27.0-33.4); MEAN CORPUSCULAR HGB CONC 33.6 g/dL (32.0-36.0); MEAN CORPUSCULAR VOLUME 81 fl (80-97); MONOCYTES % (AUTO) 9.2 % (3-13); RED BLOOD COUNT 4.16 10^6/uL (4.35-5.55); RED CELL DISTRIBUTION WIDTH 14.8 % (11.5-14.0); SEGMENTED NEUTROPHILS % (AUTO) 66.8 % (42-78); WHITE BLOOD COUNT 8.3 10^3/uL (4.0-10.5)
[2016-11-29 06:24] LABS: ANION GAP 13 (5-19); BLOOD UREA NITROGEN 16 mg/dL (7-20); CALCIUM 9.1 mg/dL (8.4-10.2); CARBON DIOXIDE 24 mmol/L (22-30); CHLORIDE 104 mmol/L (98-107); CREATININE RESULT 0.71 mg/dL (0.52-1.25); GLUCOSE 121 mg/dL (75-110); POTASSIUM 4.1 mmol/L (3.6-5.0); SODIUM 141.2 mmol/L (137-145)
--- NOTE | 2016-11-29 11:34 | Physician Advisory Note ---
Physician Advisor ProgressNote .: Pursuant to the plan for [facility], I have reviewed the medical record for this patient. Physician Advisor Statement: Possible documentation opportunities if attending agrees: 1. "Adverse effect of Percocet, correctly prescribed & properly administered, producing constipation/abd pain/anorexia, severe weakness, & resultant repeated falls with scalp laceration" 2. "Cerebrovascular Atherosclerotic Disease" 3. "Falls, likely due to unsteady gait, dehydration, opioid side effects, ..." 4. "mild emphysema of Bilat [place] (per CT in 08/2016)" As always, if concerned about any unstable VS or abnormal labs, please comment on them & note what doing about them, & please document each day the potential clinical problems you are concerned could occur if pt not kept in hospital for tx at this time. 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 - presented 11/27 to ED w/repeated falls, head injury with 10cm lac Rt parietal- occipital scalp earlier that day, 5 EMS calls since then to help pick pt up off floor. Pt too weak to stand on own & ambulate, lives alone (+) HR 65, RR12, BP 143/75, O2 sat 91%. WBC 11.7, Hgb 11.4, BUN 27 w/Cr 0.82, U /A = trace ketones. 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 Attending ordered orthostatics, PT/OT, decreased dose prn Percocet, specialty bed mattress, I/Os, daily wts, tele monitoring, falls precautions, orthostatics , O2 2L. Status: Very elderly male with underlying diabetic neuropathy, microvascular cerebrovascular disease who lives alone and whose person who checks in on him is not well, developed severe weakness to the point of inability to stand and walk without repeated falling, with associated head injury. Then was found to have abd pain/severe constipation, with prerenal azotemia/dehydration - felt to be due to side effects of opioid. Was appropriate for Outpt Observation initially, to evaluate for response to fecal disimpaction, opioid weaning, PT. Found to have severe degenerative changes of c-spine by CT 11/26/16, with multilevel mod-severe neural foraminal narrowing. PT eval on 11/27 found his strength only 3+/5 all extremities, with impaired coordination of both legs, needing assist of 2 people for bed mobility as well as transfers & ambulation. (+)falls risk. Orthostatics on 11/27 PM were positive by BP drop from 170/63 to 137/52 to 128/62 going from supine to sitting to standing, and later again positive going from 170/63 supine to 137/52 sitting, but so far there is no specific treatment ordered beyond PT. This pt clearly needed to come into the hospital for further evaulation and monitoring, to prevent further falls with more trauma. His ongoing medical needs since arrival, however, have been primarily retirement in nature: PT/OT, falls precautions, lower dose po Percocet - things that could be provided in a lower level of care than hospital. Despite his need for greater care than is currently available at his home & likelihood of benefit from rehab placement at this point, he so far does not have an acute dx of sufficient severity of illness or intensity of service to require inpatient tx in hospital setting that is medically reasonable & necessary to protect pt's health, safety, & medical condition. This unfortunately produces a placement problem, due to current Medicare rules on Inpatient status & coverage for rehab. If, however, something changes in his course, with new clinical problems that require greater intensity of care, & this is documented, status determination could change. Thanks for your help with documentation accuracy/specificity improvement! Lelo Avitia MD [facility] Physician Advisor, Fellow of Hospital Medicine
--- NOTE | 2016-11-29 11:53 | PDOC PROGRESS REPORT ---
Subjective Progress Note for:: 11/29/16 Subjective:: Complains of pain on the right side of his head and neck. Was informed by EHR that the patient does not meet criteria for inpatient hospitalization and he is changed back to an observation. Physical Exam Vital Signs: Temp Pulse Resp BP Pulse Ox 97.7 F 79 12 139/64 H 98 11/29/16 03:39 11/29/16 08:30 11/29/16 03:39 11/29/16 03:39 11/29/16 03:39 Intake & Output 11/28/16 11/29/16 11/30/16 06:59 06:59 06:59 Intake Total 3922 1500 Output Total 1905 1600 Balance 2016 Weight 102 kg 102 kg General appearance: PRESENT: no acute distress Head exam: PRESENT: other - Dressing in place on the right scalp. Eye exam: PRESENT: conjunctiva pink. ABSENT: scleral icterus Mouth exam: PRESENT: moist, tongue midline Neck exam: ABSENT: JVD Respiratory exam: PRESENT: clear to auscultation melvin. ABSENT: rales, rhonchi, wheezes Cardiovascular exam: PRESENT: RRR. ABSENT: diastolic murmur, rubs, systolic murmur GI/Abdominal exam: PRESENT: normal bowel sounds, soft. ABSENT: distended, guarding, mass, organolmegaly, rebound, tenderness Neurological exam: PRESENT: alert, awake, oriented to person, oriented to place , oriented to time, oriented to situation Psychiatric exam: PRESENT: appropriate affect Skin exam: PRESENT: other - Dressing in place on the right scalp. Results Laboratory Results: 11/29/16 04:02 11/29/16 04:02 11/29/16 11/29/16 04:02 04:02 WBC 8.3 RBC 4.16 L Hgb 11.3 L Hct 33.7 L MCV 81 MCH 27.2 MCHC 33.6 RDW 14.8 H Plt Count 271 Seg Neutrophils % 66.8 Lymphocytes % 22.1 Monocytes % 9.2 Eosinophils % 1.8 Basophils % 0.1 Absolute Neutrophils 5.6 Absolute Lymphocytes 1.8 Absolute Monocytes 0.8 Absolute Eosinophils 0.1 Absolute Basophils 0.0 Sodium 141.2 Potassium 4.1 Chloride 104 Carbon Dioxide 24 Anion Gap 13 BUN 16 Creatinine 0.71 Est GFR ( Amer) > 60 Est GFR (Non-Af Amer) > 60 Glucose 121 H Calcium 9.1 11/27/16 11/27/16 13:08 19:23 Troponin I < 0.012 < 0.012 Impressions: Chest X-Ray 11/27/16 01:15 IMPRESSION: NO SIGNIFICANT RADIOGRAPHIC FINDING IN THE CHEST. Head CT 11/27/16 03:43 IMPRESSION: No evidence of acute calvarial injury or intracranial hemorrhage. Interval removal of a previously described radiopaque retained foreign body within the right parietal scalp. Assessment & Plan - Diagnosis (1) Scalp laceration Qualifiers: Encounter type: initial encounter Qualified Code(s): S01.01XA - Laceration without foreign body of scalp, initial encounter Is this a current diagnosis for this admission?: YesPlan: The patient had a fall secondary to taking extra pain medication that he takes for his severe peripheral neuropathy. The patient will continue with as needed pain medications. (2) Peripheral neuropathy Qualifiers: Peripheral neuropathy type: polyneuropathy, unspecified Qualified Code(s): G62.9 - Polyneuropathy, unspecified Is this a current diagnosis for this admission?: YesPlan: The patient is on gabapentin as well as narcotics for his neuropathy. The patient does not meet criteria for inpatient. We'll continue with the current therapy and ask discharge planning to help us with placement. Will most likely need assisted living. (3) Ankylosing spondylitis of cervical region Is this a current diagnosis for this admission?: YesPlan: The patient is having difficulty walking with frequent falls and will most likely need referral for assisted living. He has a son who lives in [place]. His plan is to move to [place] when he sells his house. (4) Diabetes mellitus type II, controlled Qualifiers: Diabetes mellitus complication status: with unspecified complications Diabetes mellitus senior living insulin use: without senior living use Qualified Code(s): E11.8 - Type 2 diabetes mellitus with unspecified complications; Z79.4 - custodial (current) use of insulin Is this a current diagnosis for this admission?: YesPlan: We'll check fingerstick blood sugars and cover with sliding scale insulin. Sugars have ranged from 134-149 - Time Time Spent with patient: 25-34 minutes - Plan Summary Plan Summary: Patient will need placement in assisted living as he is having difficulty caring for himself given his need for narcotics and gabapentin.
[2016-11-29] MEDS: AMLODIPINE BESYLATE 10 MG TABLET PO SCH (12:34)
[2016-11-29] MEDS: DULOXETINE HCL 30 MG CAPSULE.DR PO SCH ×2 (12:37→17:23)
[2016-11-29] MEDS: TAMSULOSIN HCL 0.4 MG CAP.SR.24H PO SCH (17:23)
[2016-11-30] MEDS: GABAPENTIN 400 MG CAPSULE PO PRN ×2 (07:50→17:00)
--- NOTE | 2016-11-30 10:40 | PDOC PROGRESS REPORT ---
Subjective Progress Note for:: 11/30/16 Subjective:: Bilateral lower extremity weakness, denies any focal weakness at this time. No slurring of speech, swallowing difficulty. 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 Denies any chest pain or shortness of breath. No nausea or vomiting. No dizziness or lightheadedness. Patient reports falls due to lower extremity weakness. Lives alone and has been refusing to go to rehabilitation or subacute level of care. Physical Exam Vital Signs: Temp Pulse Resp BP Pulse Ox 98.2 F 71 16 156/64 H 98 11/30/16 08:14 11/30/16 08:14 11/30/16 03:57 11/30/16 08:14 11/30/16 08:14 Intake & Output 11/29/16 11/30/16 12/01/16 06:59 06:59 06:59 Intake Total 1500 838 Output Total 1600 900 Balance -100 -62 Weight 102 kg 100.3 kg General appearance: PRESENT: no acute distress, cooperative Head exam: PRESENT: normocephalic Eye exam: PRESENT: conjunctiva pink, EOMI Mouth exam: PRESENT: moist, neck supple Neck exam: ABSENT: JVD Respiratory exam: PRESENT: clear to auscultation melvin. ABSENT: rhonchi, wheezes Cardiovascular exam: PRESENT: RRR, +S1, +S2. ABSENT: gallop GI/Abdominal exam: PRESENT: normal bowel sounds, soft. ABSENT: distended, tenderness Extremities exam: ABSENT: pedal edema Neurological exam: PRESENT: alert, awake, oriented to situation Skin exam: PRESENT: dry, warm. ABSENT: cyanosis Results Laboratory Results: 11/29/16 04:02 11/29/16 04:02 11/27/16 11/27/16 13:08 19:23 Troponin I < 0.012 < 0.012 Impressions: Chest X-Ray 11/27/16 01:15 IMPRESSION: NO SIGNIFICANT RADIOGRAPHIC FINDING IN THE CHEST. Head CT 11/27/16 03:43 IMPRESSION: No evidence of acute calvarial injury or intracranial hemorrhage. Interval removal of a previously described radiopaque retained foreign body within the right parietal scalp. Assessment & Plan - Diagnosis (1) Frequent falls Is this a current diagnosis for this admission?: Yes (2) Scalp laceration Qualifiers: Encounter type: initial encounter Qualified Code(s): S01.01XA - Laceration without foreign body of scalp, initial encounter Is this a current diagnosis for this admission?: Yes (3) Ankylosing spondylitis of cervical region Is this a current diagnosis for this admission?: Yes (4) Diabetes mellitus type II, controlled Qualifiers: Diabetes mellitus complication status: with unspecified complications Diabetes mellitus halfway insulin use: without halfway use Qualified Code(s): E11.8 - Type 2 diabetes mellitus with unspecified complications; Z79.4 - [facility] (current) use of insulin Is this a current diagnosis for this admission?: Yes (5) Peripheral neuropathy Qualifiers: Peripheral neuropathy type: polyneuropathy, unspecified Qualified Code(s): G62.9 - Polyneuropathy, unspecified Is this a current diagnosis for this admission?: Yes (6) Hypertension Qualifiers: Hypertension type: essential hypertension Qualified Code(s): I10 - Essential (primary) hypertension Is this a current diagnosis for this admission?: Yes (7) BPH (benign prostatic hyperplasia) Qualifiers: Prostatic enlargement morphology: unspecified morphology Lower urinary tract symptom presence: presence of symptoms unspecified Qualified Code(s ): N40.0 - Benign prostatic hyperplasia without lower urinary tract symptoms Is this a current diagnosis for this admission?: Yes (8) Depression Qualifiers: Depression Type: unspecified Qualified Code(s): F32.9 - Major depressive disorder, single episode, unspecified Is this a current diagnosis for this admission?: Yes - Time Time Spent with patient: 25-34 minutes - Plan Summary Plan Summary: Check TSH, check B12 levels. Continue physical therapy. We will give normal saline 2 L and see how he does. Continue supportive care. His discharge plan to be discussed with his son. Check orthostatics.
[2016-11-30] MEDS: DULOXETINE HCL 30 MG CAPSULE.DR PO SCH ×2 (11:27→17:00)
[2016-11-30] MEDS: AMLODIPINE BESYLATE 10 MG TABLET PO SCH (11:28)
[2016-11-30] MEDS: INSULIN REG, HUMAN 100 UNIT/ML 3 ML VIAL (PYX) SUBCUT PRN (14:50)
[2016-11-30] MEDS: TAMSULOSIN HCL 0.4 MG CAP.SR.24H PO SCH (17:00)
[2016-11-30] MEDS: OXYCODONE-ACETAMINOPHEN 5-325 MG TABLET PO PRN (23:02)
[2016-12-01] MEDS: GABAPENTIN 400 MG CAPSULE PO PRN ×3 (01:05→22:17)
--- NOTE | 2016-12-01 10:08 | PDOC PROGRESS REPORT ---
Subjective Progress Note for:: 12/01/16 Subjective:: Bilateral lower extremity weakness persist, denies any focal weakness or new weakness at this time. No slurring of speech, swallowing difficulty. 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 Denies any chest pain or shortness of breath. No nausea or vomiting. No dizziness or lightheadedness. Lives alone and has been refusing to go to rehabilitation or subacute level of care. He reports home care services 5 times per week at 7 hours per day. Physical Exam Vital Signs: Temp Pulse Resp BP Pulse Ox 98.2 F 82 19 145/71 H 98 12/01/16 05:01 12/01/16 07:00 12/01/16 05:01 12/01/16 05:01 12/01/16 05:01 Intake & Output 11/30/16 12/01/16 12/02/16 06:59 06:59 06:59 Intake Total 838 953 Output Total 900 450 Balance -62 503 Weight 100.3 kg 63.2 kg General appearance: PRESENT: no acute distress, cooperative Head exam: PRESENT: normocephalic Eye exam: PRESENT: EOMI Mouth exam: PRESENT: moist, neck supple Neck exam: ABSENT: JVD Respiratory exam: PRESENT: clear to auscultation melvin. ABSENT: rhonchi, wheezes Cardiovascular exam: PRESENT: RRR. ABSENT: gallop GI/Abdominal exam: PRESENT: normal bowel sounds, soft. ABSENT: distended, tenderness Neurological exam: PRESENT: alert, awake, oriented to situation Skin exam: PRESENT: dry, warm. ABSENT: cyanosis Results Laboratory Results: 11/29/16 04:02 11/29/16 04:02 11/30/16 11/30/16 11:24 11:24 Vitamin B12 > 1000.0 H TSH 1.21 11/27/16 11/27/16 13:08 19:23 Troponin I < 0.012 < 0.012 Impressions: Chest X-Ray 11/27/16 01:15 IMPRESSION: NO SIGNIFICANT RADIOGRAPHIC FINDING IN THE CHEST. Head CT 11/27/16 03:43 IMPRESSION: No evidence of acute calvarial injury or intracranial hemorrhage. Interval removal of a previously described radiopaque retained foreign body within the right parietal scalp. Assessment & Plan - Diagnosis (1) Frequent falls Is this a current diagnosis for this admission?: Yes (2) Scalp laceration Qualifiers: Encounter type: initial encounter Qualified Code(s): S01.01XA - Laceration without foreign body of scalp, initial encounter Is this a current diagnosis for this admission?: Yes (3) Ankylosing spondylitis of cervical region Is this a current diagnosis for this admission?: Yes (4) Diabetes mellitus type II, controlled Qualifiers: Diabetes mellitus complication status: with unspecified complications Diabetes mellitus penitentiary insulin use: without roasterman use Qualified Code(s): E11.8 - Type 2 diabetes mellitus with unspecified complications; Z79.4 - prison (current) use of insulin Is this a current diagnosis for this admission?: Yes (5) Peripheral neuropathy Qualifiers: Peripheral neuropathy type: polyneuropathy, unspecified Qualified Code(s): G62.9 - Polyneuropathy, unspecified Is this a current diagnosis for this admission?: Yes (6) Hypertension Qualifiers: Hypertension type: essential hypertension Qualified Code(s): I10 - Essential (primary) hypertension Is this a current diagnosis for this admission?: Yes (7) BPH (benign prostatic hyperplasia) Qualifiers: Prostatic enlargement morphology: unspecified morphology Lower urinary tract symptom presence: presence of symptoms unspecified Qualified Code(s ): N40.0 - Benign prostatic hyperplasia without lower urinary tract symptoms Is this a current diagnosis for this admission?: Yes (8) Depression Qualifiers: Depression Type: unspecified Qualified Code(s): F32.9 - Major depressive disorder, single episode, unspecified Is this a current diagnosis for this admission?: Yes - Time Time Spent with patient: Less than 15 minutes - Plan Summary Plan Summary: Continue physical therapy. Continue supportive care. Awaiting discharge plan regarding alternate level of care or subacute rehabilitation.
[2016-12-01] MEDS: DULOXETINE HCL 30 MG CAPSULE.DR PO SCH ×2 (10:54→18:52)
[2016-12-01] MEDS: AMLODIPINE BESYLATE 10 MG TABLET PO SCH (10:54)
[2016-12-01] MEDS: OXYCODONE-ACETAMINOPHEN 5-325 MG TABLET PO PRN (10:56)
[2016-12-01] MEDS: TAMSULOSIN HCL 0.4 MG CAP.SR.24H PO SCH (18:52)
[2016-12-01] MEDS: INSULIN REG, HUMAN 100 UNIT/ML 3 ML VIAL (PYX) SUBCUT PRN (22:18)
[2016-12-02] MEDS: OXYCODONE-ACETAMINOPHEN 5-325 MG TABLET PO PRN ×2 (05:41→12:29)
[2016-12-02] MEDS: GABAPENTIN 400 MG CAPSULE PO PRN (07:48)
[2016-12-02] MEDS: INSULIN REG, HUMAN 100 UNIT/ML 3 ML VIAL (PYX) SUBCUT PRN ×2 (07:48→13:33)
--- NOTE | 2016-12-02 08:12 | EKG REPORT ---
SEVERITY:- ABNORMAL ECG - SINUS RHYTHM FIRST DEGREE AV BLOCK BORDERLINE T ABNORMALITIES, ANT-LAT LEADS : Confirmed by: Ian Harden MD 02-Dec-2016 08:12:09
[2016-12-02] MEDS: DULOXETINE HCL 30 MG CAPSULE.DR PO SCH (10:08)
[2016-12-02] MEDS: AMLODIPINE BESYLATE 10 MG TABLET PO SCH (10:08)
--- NOTE | 2016-12-02 10:31 | PDOC TRANSFER SUMMARY ---
General - Admit/Disc Date/PCP Admission Date/Primary Care Provider: 11/27/16 06:39 Discharge Date: 12/02/16 - Discharge Diagnosis (1) Frequent falls Is this a current diagnosis for this admission?: Yes (2) Scalp laceration Is this a current diagnosis for this admission?: Yes (3) Ankylosing spondylitis of cervical region Is this a current diagnosis for this admission?: Yes (4) Diabetes mellitus type II, controlled Is this a current diagnosis for this admission?: Yes (5) Peripheral neuropathy Is this a current diagnosis for this admission?: Yes (6) Hypertension Is this a current diagnosis for this admission?: Yes (7) BPH (benign prostatic hyperplasia) Is this a current diagnosis for this admission?: Yes (8) Depression Is this a current diagnosis for this admission?: Yes - Additional Information Resuscitation Status: Full Code Discharge Diet: Cardiac - low-fat low-salt, Diabetic - no concentrated sweets Discharge Activity: Activity As Tolerated, Balance Activity w/Rest Home Medications: Amlodipine Besylate [Norvasc 10 mg Tablet] 10 mg PO DAILY 11/27/16 Duloxetine HCl [Cymbalta] 60 mg PO BID 11/27/16 Gabapentin [Neurontin] 800 mg PO TID 11/27/16 Tamsulosin HCl [Flomax 0.4 mg Cap.sr] 0.4 mg PO DAILY 11/27/16 Alprazolam [Xanax 0.5 mg Tablet] 0.5 mg PO BIDP PRN #20 tablet 12/02/16 Docusate Sodium [Colace 100 mg Capsule] 100 mg PO BID #60 capsule 12/02/16 Lactulose [Cephulac Syrup 20 gm/30 ml Udcup] 20 gm PO Q6HP PRN udc 12/02/16 Oxycodone HCl 15 mg PO Q8HP PRN #30 tablet 12/02/16 Additional Information: 1. Removal of scalp sutures in 5 days. History of Present Illness Admission Date/PCP: 11/27/16 06:39 Patient complains of: Frequent falls History of Present Illness: LIBERTY TIRADO is a 89 year old male with a past medical history of BPH, hypertension, neuropathy and recurrent falls at home where he lives independently. Earlier in the day he was seen in the emergency room after sustaining a fall with a large 10 cm right occipital laceration requiring suturing and otherwise had an unremarkable workup and was discharged home only to have several more falls calling emergency services 5 and finally agrees to return to the emergency room. Where his found to have abdominal pain with severe constipation, leukocytosis, tachycardia and prerenal azotemia. Patient states he has recently started an 15 mg dose of Percocet every 6 hours when necessary for neuropathy. Patient agrees that this may be contributing to his falls and constipation. Is referred to the hospitalist for observation opiate weaning, fecal disimpaction and a physical therapy evaluation. Hospital Course Hospital Course: The patient was admitted to the medical floor. The patient was hydrated with intravenous fluid, and enemas were given, lactulose was likewise given. Patient eventually had good bowel movements. His hospital course is mainly due to significant debility brought about by peripheral neuropathy , as well as ankylosing spondylolysis. Physical therapy was instituted. information systems planner was consulted for alternate level of care or subacute facility physical therapy. Patient eventually was approved for rehabilitation in a subacute facility setting. Patient's overall improved, no falls noted while in the hospital. Patient was placed on his pain medication with oxycodone but on the lower dose, as well as Neurontin on a lower dose. His head CT scan did not reveal any acute abnormality. His wound has been sutured in the emergency room and is healing well. The rest of the hospital stay is unremarkable. He was eventually transferred, when a bed was available. Physical Exam Vital Signs: Temp Pulse Resp BP Pulse Ox 97.3 F 76 19 152/67 H 93 12/02/16 05:39 12/02/16 07:00 12/02/16 05:39 12/02/16 05:39 12/02/16 05:39 Intake & Output 12/01/16 12/02/16 12/03/16 06:59 06:59 06:59 Intake Total 953 1133 Output Total 450 50 Balance 503 1083 Weight 63.2 kg 65.2 kg General appearance: PRESENT: no acute distress, cooperative Head exam: PRESENT: normocephalic Eye exam: PRESENT: EOMI Mouth exam: PRESENT: moist Neck exam: ABSENT: JVD Respiratory exam: PRESENT: clear to auscultation melvin Cardiovascular exam: PRESENT: RRR GI/Abdominal exam: PRESENT: hyperactive bowel sounds, soft. ABSENT: diminished bowel sounds, tenderness Extremities exam: ABSENT: pedal edema Neurological exam: PRESENT: alert, awake, oriented to situation Skin exam: PRESENT: dry, warm, other - Scalp suture in place, wound well couptated.. ABSENT: cyanosis Results Laboratory Results: 11/29/16 04:02 11/29/16 04:02 11/27/16 11/27/16 13:08 19:23 Troponin I < 0.012 < 0.012 Impressions: Chest X-Ray 11/27/16 01:15 IMPRESSION: NO SIGNIFICANT RADIOGRAPHIC FINDING IN THE CHEST. Head CT 11/27/16 03:43 IMPRESSION: No evidence of acute calvarial injury or intracranial hemorrhage. Interval removal of a previously described radiopaque retained foreign body within the right parietal scalp. Transfer Plan - Disposition Transfer Plan: Patient will be transferred to subacute rehabilitation for physical therapy. Patient will be followed by the physician at the facility. - Time Spent with Patient Time spent with patient: Less than 30 Minutes Qualifiers PATEINT BEING DISCHARGED WITH ANY OF THE FOLLOWING DIAGNOSIS?: No Plan Discharge Plan: Appointment with primary care physician in one to 2 weeks. Time Spent: Less than 30 Minutes
[2016-12-02 16:46] VITALS: BP 154/66
== END 2016-12-02 16:53 ==
LOC: ER 22:09 → UNDOADMOB 11-27 04:57 → EH 11-27 04:57 → 4N 11-27 08:01
PROVIDERS: ADMIT Internal Medicine; ATTEND Internal Medicine
DX: S09.90XA Unspecified injury of head, initial encounter (principal); S01.01XA Laceration without foreign body of scalp, initial encounter; W19.XXXA Unspecified fall, initial encounter; Z91.81 History of falling; R53.1 Weakness; R26.81 Unsteadiness on feet; Z87.891 Personal history of nicotine dependence; I10 Essential (primary) hypertension; E11.9 Type 2 diabetes mellitus without complications; M19.90 Unspecified osteoarthritis, unspecified site; M45.2 Ankylosing spondylitis of cervical region; G62.9 Polyneuropathy, unspecified; N40.0 Benign prostatic hyperplasia without lower urinary tract symptoms; F32.9 Major depressive disorder, single episode, unspecified; Z79.899 Other long term (current) drug therapy
CPT/HCPCS: 93005 ×2; 99284; 99285; 36415 ×5; 82553 ×2; 82962 ×6; 82607; 82550 ×2; 84443; 85025 ×3; 80048 ×2; 80053; 81001; 84484 ×2; 71020; 70450 ×2; 72125; 93010 ×2; 97110; 97116; 97163; 97167; G0378 ×7; A9270 ×37; J3490 ×2; J7030; G8978; G8979; G8987; G8988; J1815

== ENCOUNTER 2016-12-16 19:02 | Emergency (ER) | payer MEDICARE ==
--- NOTE | 2016-12-16 19:57 | ER Document Report ---
ED General - General Chief Complaint: Arm Injury Stated Complaint: FALL,LEFT ELBOW PAIN Time seen by provider: 19:45 Mode of Arrival: Medic Information source: Patient Notes: 89-year-old male states he fell attempting to it in wheelchair about 2:00 this afternoon. He denies a loss of consciousness but says he suffered a skin tear to his left upper arm that was bandaged at [facility] has had pain to the left upper arm and both knees fall. He reports being in normal state of health otherwise recently says he chronically has problems with ambulation due to neuropathy and ankles expound colitis he arrives with that they DO NOT RESUSCITATE paperwork Physical Exam: General: Alert, appears well. HEENT: Normocephalic. Well healed laceration right occipital region.. PERRLA. Extraocular movements intact. Discs sharp no papilledema sclerae anicteric tympanic membranes and canals clear. No otorhinorrhea Oropharynx clear. Dentureless Neck: Supple. Non-tender. Patient has decreased range of motion which she relates is chronic in him has no pain with palpation Respiratory: No respiratory distress. Clear and equal breath sounds bilaterally. Cardiovascular: Regular rate and rhythm. Abdominal: Normal Inspection. Soft, non-tender. No distension. Normal Bowel Sounds. Back: Non-tender. No deformity or step off. No bony deformities palpated Left upper extremity has a pair of 3 x 3 cm skin tears to the left upper arm and mild discomfort palpation just below the humeral head. He is able to demonstrate good range of motion shoulder elbow wrist and hand with minimal increase in discomfort. Radial median and ulnar nerve function left hand is intact. He has 2+ radial ulnar pulses. Moderate free have full range of motion without discomfort. Both lower extremities have good range of motion reports flexion at the knees increases pain in the knees. He also expresses concern about history knee replacement in both knees. 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 Normal Mood. Skin: Warm. Dry. Normal color. TRAVEL OUTSIDE OF THE [place] IN LAST 30 DAYS: No - Related Data Allergies/Adverse Reactions: No Known Allergies Allergy (Verified 11/21/16 14:30) Past Medical History - Social History Smoking Status: Former Smoker Family History: Arthritis, Hypertension - Past Medical History Cardiac Medical History: Reports: Hx Hypertension Endocrine Medical History: Reports: Hx Diabetes Mellitus Type 2 Renal/ Medical History: Reports: Hx Benign Prostatic Hyperplasia Musculoskeltal Medical History: Reports Hx Arthritis Psychiatric Medical History: Reports: Hx Depression Past Surgical History: Reports: Hx Cholecystectomy, Hx Orthopedic Surgery - right knee replacement - Immunizations Hx Diphtheria, Pertussis, Tetanus Vaccination: No Hx Pneumococcal Vaccination: 07/02/09 Review of Systems - Review of Systems Constitutional: denies: Chills, Fever EENT: denies: Ear pain, Throat pain Cardiovascular: denies: Chest pain, Dyspnea, Syncope Respiratory: denies: Cough, Short of breath Gastrointestinal: denies: Abdominal pain, Diarrhea, Nausea, Vomiting Genitourinary: denies: Burning Musculoskeletal: Back pain - Chronic Skin: See HPI, Rash Hematologic/Lymphatic: denies: Swollen glands Neurological/Psychological: See HPI, Weakness, Numbness - Chronic numbness weakness related to peripheral neuropathy Course - Re-evaluation Re-evalutation: 12/16/16 22:13 X-rays are negative. Patient's only injury appears to be skin tear left arm minimal contusion both knees left upper arm. Patient has good range of motion of these joints without minimal discomfort safe for discharge and outpatient follow-up 12/16/16 22:22 - Diagnostic Test Radiology reviewed: Image reviewed, Reports reviewed Discharge - Discharge Clinical Impression: Contusion Qualifiers: Encounter type: initial encounter Contusion area: upper arm Laterality: left Qualified Code(s): S40.022A - Contusion of left upper arm, initial encounter Contusion Qualifiers: Encounter type: initial encounter Contusion area: upper arm Laterality: left Qualified Code(s): S40.022A - Contusion of left upper arm, initial encounter Condition: Stable Disposition: HOME-SNF (ED ONLY) Additional Instructions: Skin Tear Your wound is a skin tear. These wounds are difficult and sometimes impossible to suture because the skin is so fragile that it may not hold the sutures. The skin condition can be due to aging and sometimes medications. The best care for such skin tears is sometimes to not try to suture them. Rather, it is best to position the skin as closely as possible to its original location and apply a bandage that can remain in place for several days at a time and sometimes these bandages are left in place until the wound has healed. Most skin tears will heal in about two weeks. Because they are so difficult to care for, skin tears should be expected to leave some scarring. Referrals: EUFEMIA EDWARSD MD [ACTIVE STAFF] - Follow up in 1 week
[2016-12-17 01:25] VITALS: BP 137/48
== END 2016-12-17 01:27 ==
LOC: ER 19:02
DX: S41.112A Laceration without foreign body of left upper arm, initial encounter (principal); S80.02XA Contusion of left knee, initial encounter; S80.01XA Contusion of right knee, initial encounter; W05.0XXA Fall from non-moving wheelchair, initial encounter; M25.561 Pain in right knee; M25.562 Pain in left knee; M79.622 Pain in left upper arm; E11.40 Type 2 diabetes mellitus with diabetic neuropathy, unspecified; M54.9 Dorsalgia, unspecified; G89.29 Other chronic pain; I10 Essential (primary) hypertension; Z66 Do not resuscitate; Z96.653 Presence of artificial knee joint, bilateral; Z87.891 Personal history of nicotine dependence
CPT/HCPCS: 99285

== ENCOUNTER 2016-12-20 23:08 | Emergency (ER) | payer MEDICARE ==
--- NOTE | 2016-12-20 23:40 | ER Document Report ---
ED GI/ - General Chief Complaint: Constipation Stated Complaint: CONSTIPATION Time seen by provider: 23:38 Notes: Patient is an 89-year-old male that comes emergency department for chief complaint of constipation. He states he has not had a bowel movement for about 4-5 days, he is on Colace twice a day and lactulose, however he takes oxycodone for neuropathy. Patient comes by EMS from [facility]. Patient reportedly was given a Fleet enema earlier today. He states he feels bloated and uncomfortable, denies any significant abdominal pain, denies vomiting, denies fever. TRAVEL OUTSIDE OF THE [place] IN LAST 30 DAYS: No - Related Data Allergies/Adverse Reactions: No Known Allergies Allergy (Verified 11/21/16 14:30) Past Medical History - General Information source: Patient - Social History Smoking Status: Never Smoker Drug Abuse: None Lives with: Mcc Family History: Arthritis, Hypertension - Past Medical History Cardiac Medical History: Reports: Hx Hypertension Endocrine Medical History: Reports: Hx Diabetes Mellitus Type 2 Renal/ Medical History: Reports: Hx Benign Prostatic Hyperplasia. Denies: Hx Peritoneal Dialysis Musculoskeltal Medical History: Reports Hx Arthritis Psychiatric Medical History: Reports: Hx Depression Past Surgical History: Reports: Hx Cholecystectomy, Hx Orthopedic Surgery - right knee replacement - Immunizations Hx Diphtheria, Pertussis, Tetanus Vaccination: No Hx Pneumococcal Vaccination: 07/02/09 Review of Systems - Review of Systems Constitutional: No symptoms reported EENT: No symptoms reported Cardiovascular: No symptoms reported Respiratory: No symptoms reported Gastrointestinal: See HPI Genitourinary: No symptoms reported Male Genitourinary: No symptoms reported Musculoskeletal: No symptoms reported Skin: No symptoms reported Hematologic/Lymphatic: No symptoms reported Neurological/Psychological: No symptoms reported Physical Exam - Vital signs Vitals: Temp Pulse Resp BP Pulse Ox 97.5 F 64 16 152/67 H 97 12/20/16 23:14 12/20/16 23:14 12/20/16 23:14 12/20/16 23:14 12/20/16 23:14 Interpretation: Normal - General General appearance: Appears well, Alert In distress: None - Patient resting, appears comfortable, conversational and smiling - HEENT Head: Normocephalic, Atraumatic Eyes: Normal Conjunctiva: Normal Extraocular movements intact: Yes Eyelashes: Normal Pupils: PERRL - Respiratory Respiratory status: No respiratory distress Chest status: Nontender Breath sounds: Normal Chest palpation: Normal - Cardiovascular Rhythm: Regular Heart sounds: Normal auscultation Murmur: No - Abdominal Inspection: Normal Distension: Distended - Possibly mildly distended versus mildly obese Bowel sounds: Normal Tenderness: No: Tender, Guarding - No tenderness or guarding whatsoever Organomegaly: No organomegaly - Back Back: Normal, Nontender. No: Tender - Extremities General upper extremity: Normal inspection, Nontender, Normal color, Normal ROM , Normal temperature General lower extremity: Normal inspection, Nontender, Normal color, Normal ROM , Normal temperature, Normal weight bearing. No: Nadia's sign - Neurological Neuro grossly intact: Yes Cognition: Normal Orientation: AAOx4 [place] Coma Scale Eye Opening: Spontaneous [place] Coma Scale Verbal: Oriented Henri Coma Scale Motor: Obeys Commands [place] Coma Scale Total: 15 Speech: Normal Motor strength normal: LUE, RUE, LLE, RLE Sensory: Normal - Psychological Associated symptoms: Normal affect, Normal mood - Skin Skin Temperature: Warm Skin Moisture: Dry Skin Color: Normal Course - Re-evaluation Re-evalutation: Acute abdominal series shows moderate retained stool in the region of the descending colon, no obstructive findings or other abnormalities noted. Patient resting comfortably on exam, questionable bloating with no significant tenderness over the abdomen. Vital signs unremarkable. Discussed with patient , patient is agreeable with an enema, this was ordered, however shortly after this patient spontaneously had a fairly large bowel movement which did not have any hard substance. After this I discussed with patient again, he declines an enema at this time. Patient is on lactulose and Colace, discussed follow-up and return precautions, patient states satisfaction. - Vital Signs Vital signs: Temp Pulse Resp BP Pulse Ox 97.1 F 72 16 161/57 H 96 12/21/16 03:49 12/21/16 03:49 12/21/16 03:49 12/21/16 03:49 12/21/16 03:49 Discharge - Discharge Clinical Impression: Abdominal pain Qualifiers: Abdominal location: generalized Qualified Code(s): R10.84 - Generalized abdominal pain Constipation Qualifiers: Constipation type: unspecified constipation type Qualified Code(s): K59.00 - Constipation, unspecified Condition: Stable Disposition: HOME, SELF-CARE Additional Instructions: X-ray imaging shows some retained stool on the left side of the colon, however patient had a bowel movement spontaneously in the emergency department, after discussion declined an enema. Continue lactulose and Colace. Follow-up with primary care. Return to the emergency department for any concerning or worsening symptoms. Forms: Elevated Blood Pressure Referrals: MACEY REIS MD [Primary Care Provider] - Follow up as needed
[2016-12-21] MEDS ORDERED: MINERAL OIL 30 ML UDCUP PR ONE (01:25)
[2016-12-21 03:51] VITALS: BP 161/57
== END 2016-12-21 03:51 | disposition home or self-care (01) ==
LOC: ER 23:08
DX: R10.84 Generalized abdominal pain (principal); K59.00 Constipation, unspecified; I10 Essential (primary) hypertension; E11.9 Type 2 diabetes mellitus without complications; Z90.49 Acquired absence of other specified parts of digestive tract
CPT/HCPCS: 74020; 99283

== ENCOUNTER 2017-03-03 15:28 | Inpatient (IN) | payer MEDICARE ==
[2017-03-02] MEDS: DOXYCYCLINE HYCLATE 100 MG TABLET PO SCH (10:00)
--- NOTE | 2017-03-03 16:03 | ER Document Report ---
ED Medical Screen (RME) - General Mode of Arrival: Wheelchair Information source: Patient, Friend TRAVEL OUTSIDE OF THE [place] IN LAST 30 DAYS: No <MARISEL HAWTHORNE - Last Filed: 03/03/17 16:04> <MARY ELLEN VAIL - Last Filed: 03/03/17 19:36> - General Chief Complaint: Skin Sore(s) Stated Complaint: BLISTERS ON HEELS Time Seen by Provider: 03/03/17 15:54 Notes: Patient presents to emergency department with his caregiver complaining of wounds on his feet bilaterally. Patient reports he has had his feet stuffed into uncomfortable shoes resulting in blistering a few days ago. Patient went to Dr. Guo who sent him to the ED. Also complains of fever. (MARISEL HAWTHORNE) - Related Data Allergies/Adverse Reactions: No Known Allergies Allergy (Verified 03/03/17 15:47) Past Medical History - General Information source: Patient - Past Medical History Cardiac Medical History: Reports: Hx Hypertension Endocrine Medical History: Reports: Hx Diabetes Mellitus Type 2 Renal/ Medical History: Reports: Hx Benign Prostatic Hyperplasia. Denies: Hx Peritoneal Dialysis Musculoskeltal Medical History: Reports Hx Arthritis Psychiatric Medical History: Reports: Hx Depression Past Surgical History: Reports: Hx Cholecystectomy, Hx Orthopedic Surgery - right knee replacement - Immunizations Hx Diphtheria, Pertussis, Tetanus Vaccination: No <MARISEL HAWTHORNE - Last Filed: 03/03/17 16:04> Review of Systems - Review of Systems Skin: See HPI, Lesions <MARISEL HAWTHORNE - Last Filed: 03/03/17 16:04> Physical Exam - Extremities General lower extremity: Other - ulcer to right heel with erythema and some necrosis, top of skin is gone, does not palpate to bone, stage 2 pressure ulcer about 4 cm in diameter. Left foot has superficial blisters to anterior surface at the level of the ankle, heel has stage 3 deiabetic ulcer, clean margins, 6cm diameter, with erythema spreading out, does not palpate to bone. Pulses and sensations are intact in distal feet bilaterally. <MARISEL HAWTHORNE - Last Filed: 03/03/17 16:04> Course - Laboratory Result Diagrams: 03/03/17 16:40 03/03/17 16:40 <MARY ELLEN VAIL - Last Filed: 03/03/17 19:36> - Vital Signs Vital signs: Temp Pulse Resp BP Pulse Ox 98.2 F 93 18 140/54 H 94 03/03/17 15:38 03/03/17 15:38 03/03/17 15:38 03/03/17 15:38 03/03/17 15:38 - Laboratory Laboratory results interpreted by me: 03/03/17 03/03/17 16:40 16:40 WBC 11.6 H RBC 4.33 L Hgb 11.8 L Hct 36.3 L RDW 15.6 H Absolute Neutrophils 8.4 H BUN 27 H Glucose 244 H Scribe Documentation - Scribe Written by Nya:: nya aSunders, 03/03/17, 1241 acting as scribe for :: Abran <MARISEL HAWTHORNE - Last Filed: 03/03/17 16:04>
[2017-03-03] MEDS ORDERED: VANCOMYCIN HCL INJ 1000 MG VIAL IV ONE (16:05)
[2017-03-03] MEDS ORDERED: PIPERACILLIN/TAZOBACTAM 4.5 GM VIAL IV ONE (16:05)
[2017-03-03 17:05] LABS: ABSOLUTE EOSINOPHILS # (AUTO) 0.1 10^3/uL (0.0-0.6); ABSOLUTE LYMPHOCYTES (AUTO) 1.7 10^3/uL (0.5-4.7); ABSOLUTE MONOCYTES (AUTO) 1.4 10^3/uL (0.1-1.4); ABSOLUTE NEUT (AUTO) 8.4 10^3/uL (1.7-8.2); BASOPHILS % (AUTO) 0.2 % (0-2); EOSINOPHILS % (AUTO) 0.5 % (0-6); HEMATOCRIT 36.3 % (37.9-51.0); HEMOGLOBIN 11.8 g/dL (13.5-17.0); HGB HCT DIFFERENCE -0.9; LYMPHOCYTES % (AUTO) 14.7 % (13-45); MEAN CORPUSCULAR HEMOGLOBIN 27.2 pg (27.0-33.4); MEAN CORPUSCULAR HGB CONC 32.4 g/dL (32.0-36.0); MEAN CORPUSCULAR VOLUME 84 fl (80-97); MONOCYTES % (AUTO) 12.5 % (3-13); RED BLOOD COUNT 4.33 10^6/uL (4.35-5.55); RED CELL DISTRIBUTION WIDTH 15.6 % (11.5-14.0); SEGMENTED NEUTROPHILS % (AUTO) 72.1 % (42-78); WHITE BLOOD COUNT 11.6 10^3/uL (4.0-10.5)
[2017-03-03 17:28] LABS: ALANINE AMINOTRANSFERASE 37 U/L (21-72); ALBUMIN 3.9 g/dL (3.5-5.0); ALKALINE PHOSPHATASE 104 U/L (38-126); ANION GAP 12 (5-19); ASPARTATE AMINO TRANSFERASE 29 U/L (17-59); BILIRUBIN,DIRECT 0.2 mg/dL (0.0-0.4); BILIRUBIN,TOTAL 0.5 mg/dL (0.2-1.3); BLOOD UREA NITROGEN 27 mg/dL (7-20); CALCIUM 9.3 mg/dL (8.4-10.2); CARBON DIOXIDE 30 mmol/L (22-30); CHLORIDE 100 mmol/L (98-107); GLUCOSE 244 mg/dL (75-110); POTASSIUM 4.6 mmol/L (3.6-5.0); TOTAL PROTEIN 7.1 g/dL (6.3-8.2)
--- NOTE | 2017-03-03 20:10 | ER Document Report ---
ED General - General Chief Complaint: Skin Sore(s) Stated Complaint: WOUND CARE ON FEET Time Seen by Provider: 03/03/17 15:54 Mode of Arrival: Wheelchair Notes: The patient is an 89-year-old male, past medical history diabetes, presents from his primary care physician's office (Dr. Guo) with bilateral open heel wounds with redness up both feet and legs with blistering over his left leg over the past 2 days. He is also had subjective fevers with this. Patient says he has neuropathy in his feet and is having no pain. He also said that he was wearing smaller than normal shoes recently, but denies an injury. Denies chest pain, shortness of breath, nausea, vomiting, calf swelling, weakness or other wounds. TRAVEL OUTSIDE OF THE [place] IN LAST 30 DAYS: No - Related Data Allergies/Adverse Reactions: No Known Allergies Allergy (Verified 03/03/17 15:47) Past Medical History - General Information source: Patient - Social History Smoking Status: Unknown if Ever Smoked Family History: Arthritis, Hypertension Patient has suicidal ideation: No Patient has homicidal ideation: No - Past Medical History Cardiac Medical History: Reports: Hx Hypertension Endocrine Medical History: Reports: Hx Diabetes Mellitus Type 2 Renal/ Medical History: Reports: Hx Benign Prostatic Hyperplasia. Denies: Hx Peritoneal Dialysis Musculoskeltal Medical History: Reports Hx Arthritis Psychiatric Medical History: Reports: Hx Depression Past Surgical History: Reports: Hx Cholecystectomy, Hx Orthopedic Surgery - right knee replacement - Immunizations Hx Diphtheria, Pertussis, Tetanus Vaccination: No Hx Pneumococcal Vaccination: 07/02/09 Review of Systems - Review of Systems Notes: REVIEW OF SYSTEMS: CONSTITUTIONAL: -fevers, -chills EENT: -eye pain, -difficulty swallowing, -nasal congestion CARDIOVASCULAR:-chest pain, -syncope. RESPIRATORY: -cough, -SOB GASTROINTESTINAL: -abdominal pain, - nausea, -vomiting, -diarrhea GENITOURINARY: -dysuria, -hematuria MUSCULOSKELETAL: -back pain, -neck pain SKIN: +B/L heel ulcers and foot redness and swelling HEMATOLOGIC: -easy bruising or bleeding. LYMPHATIC: -swollen, enlarged glands. NEUROLOGICAL: -altered mental status or loss of consciousness, -headache, - neurologic symptoms PSYCHIATRIC: -anxiety, -depression. ALL OTHER SYSTEMS REVIEWED AND NEGATIVE. Physical Exam - Vital signs Vitals: Temp Pulse Resp BP Pulse Ox 98.2 F 93 18 140/54 H 94 03/03/17 15:38 03/03/17 15:38 03/03/17 15:38 03/03/17 15:38 03/03/17 15:38 - Notes Notes: PHYSICAL EXAMINATION: GENERAL: Well-appearing, well-nourished and in no acute distress. HEAD: Atraumatic, normocephalic. EYES: extraocular movements intact, sclera anicteric, conjunctiva are normal. ENT: nares patent, oropharynx clear without exudates. Moist mucous membranes. NECK: Normal range of motion, supple without lymphadenopathy LUNGS: Breath sounds clear to auscultation bilaterally and equal. No wheezes rales or rhonchi. HEART: Regular rate and rhythm without murmurs ABDOMEN: Soft, nontender, normoactive bowel sounds. No guarding, no rebound. No masses appreciated. EXTREMITIES: ulcer to right heel with erythema and some necrosis, top of skin is gone, does not palpate to bone, stage 2 pressure ulcer about 4 cm in diameter. Left foot has superficial blisters to anterior surface at the level of the ankle, heel has stage 3 diabetic ulcer, clean margins, 6 cm diameter, with erythema spreading out, does not palpate to bone. Pulses and sensations are intact in distal feet bilaterally. Difficult to palpate DP pulses. Strong B/ L fmeoral pulses. NEUROLOGICAL: Cranial nerves grossly intact. Normal speech. Normal motor exam. PSYCH: Normal mood, normal affect. Course - Re-evaluation Re-evalutation: Patient has evidence of foot wounds with cellulitis. He has a leukocytosis and subjective fevers but is afebrile in the emergency room. He is not tachycardic and his blood pressure is normal. Antibiotics started in triage. His heel ulcers may be from large blisters that were removed recently. We'll involve surgery to see if there is any need for debridement. 03/03/17 20:[address] Flynn (Surgicalist) and he will be down to see patient. Recommends keeping patient nothing by mouth and admission to hospitalist. 03/03/17 22:[address] Cohen and he has accepted patient to General Medicine floor for IV Abx for B/L leg cellulitis. Dr. Flynn does not recommend any surgical intervention at this time. - Vital Signs Vital signs: Temp Pulse Resp BP Pulse Ox 98.2 F 93 19 140/54 H 96 03/03/17 15:38 03/03/17 15:38 03/03/17 19:00 03/03/17 15:38 03/03/17 19:00 - Laboratory Result Diagrams: 03/03/17 16:40 03/03/17 16:40 Laboratory results interpreted by me: 03/03/17 03/03/17 16:40 16:40 WBC 11.6 H RBC 4.33 L Hgb 11.8 L Hct 36.3 L RDW 15.6 H Absolute Neutrophils 8.4 H BUN 27 H Glucose 244 H - Diagnostic Test Radiology reviewed: Image reviewed, Reports reviewed Radiology results interpreted by me: B/L Foot x-rays: NAD Discharge - Discharge Clinical Impression: Diabetic foot infection Cellulitis Qualifiers: Site of cellulitis: extremity Site of cellulitis of extremity: lower extremity Laterality: unspecified laterality Qualified Code(s): L03.119 - Cellulitis of unspecified part of limb Condition: Stable Disposition: ADMITTED INPATIENT Admitting Provider: Edith Erickson Noel Unit Admitted: Medical Floor
--- NOTE | 2017-03-03 21:02 | PDOC CONSULTATION ---
History of Present Illness Admission Date/PCP: MACEY REIS MD Patient complains of: Bilateral lower extremity erythema History of Present Illness: LIBERTY TIRADO is a 89 year old male who has been unable to ambulate since the trauma few weeks ago with the head injury. Noted with the bilateral heel blisters and bilateral lower extremity erythema for the past several days. Unknown whether he has had any fever. Patient is diabetic. Past Medical History Cardiac Medical History: Reports: Hypertension Endocrine Medical History: Reports: Diabetes Mellitus Type 2 Musculoskeltal Medical History: Reports: Arthritis Psychiatric Medical History: Reports: Depression Hematology: Denies: Anemia, Sickle Cell Disease Past Surgical History Past Surgical History: Reports: Cholecystectomy, Orthopedic Surgery - right knee replacement Social History Smoking Status: Unknown if Ever Smoked Frequency of Alcohol Use: None Hx Recreational Drug Use: No Drugs: None Hx Prescription Drug Abuse: No Family History Family History: Arthritis, Hypertension Parental Family History Reviewed: No Children Family History Reviewed: No Sibling(s) Family History Reviewed.: No Medication/Allergy Home Medications: Amlodipine Besylate [Norvasc 10 mg Tablet] 10 mg PO DAILY 11/27/16 Duloxetine HCl [Cymbalta] 60 mg PO BID 11/27/16 Gabapentin [Neurontin] 800 mg PO TID 11/27/16 Tamsulosin HCl [Flomax 0.4 mg Cap.sr] 0.4 mg PO DAILY 11/27/16 Alprazolam [Xanax 0.5 mg Tablet] 0.5 mg PO BIDP PRN #20 tablet 12/02/16 Docusate Sodium [Colace 100 mg Capsule] 100 mg PO BID #60 capsule 12/02/16 Lactulose [Cephulac Syrup 20 gm/30 ml Udcup] 20 gm PO Q6HP PRN udc 12/02/16 Oxycodone HCl 15 mg PO Q8HP PRN #30 tablet 12/02/16 Allergies/Adverse Reactions: No Known Allergies Allergy (Verified 03/03/17 15:47) Physical Exam Vital Signs: Temp Pulse Resp BP Pulse Ox 98.2 F 93 19 140/54 H 96 03/03/17 15:38 03/03/17 15:38 03/03/17 19:00 03/03/17 15:38 03/03/17 19:00 Intake & Output 03/02/17 03/03/17 03/04/17 06:59 06:59 06:59 Weight 102.2 kg General appearance: PRESENT: no acute distress, cooperative Neck exam: PRESENT: other - Soft with no tenderness Respiratory exam: PRESENT: clear to auscultation melvin Cardiovascular exam: PRESENT: RRR GI/Abdominal exam: PRESENT: other - Soft nondistended nontender to palpation Extremities exam: PRESENT: other - Palpable bilateral femoral pulses but unable to palpate pedal pulses. Bilateral feet are warm with one second capillary refill. Diffuse erythema of bilateral feet and lower legs but no crepitus and no skin necrosis. Erythematous bilateral heel with the appearance of a thick callus that has blistered off of both of the heels. No evidence of full- thickness necrosis no necrotic tissue. No fluctuance. No crepitus. Small superficial blistering at the anterior leg but no skin discoloration and no fluctuance. On the right foot there is a linear very superficial laceration at the lateral aspect. Results Laboratory Results: 03/03/17 16:40 03/03/17 16:40 03/03/17 03/03/17 16:40 16:40 WBC 11.6 H RBC 4.33 L Hgb 11.8 L Hct 36.3 L MCV 84 MCH 27.2 MCHC 32.4 RDW 15.6 H Plt Count 265 Seg Neutrophils % 72.1 Lymphocytes % 14.7 Monocytes % 12.5 Eosinophils % 0.5 Basophils % 0.2 Absolute Neutrophils 8.4 H Absolute Lymphocytes 1.7 Absolute Monocytes 1.4 Absolute Eosinophils 0.1 Absolute Basophils 0.0 Sodium 142.0 Potassium 4.6 Chloride 100 Carbon Dioxide 30 Anion Gap 12 BUN 27 H Creatinine 1.00 Est GFR ( Amer) > 60 Est GFR (Non-Af Amer) > 60 Glucose 244 H Calcium 9.3 Total Bilirubin 0.5 AST 29 ALT 37 Alkaline Phosphatase 104 Total Protein 7.1 Albumin 3.9 Impressions: Foot X-Ray 03/03/17 18:36 IMPRESSION: No acute osseous finding. Assessment & Plan - Diagnosis (1) Cellulitis of both lower extremities Is this a current diagnosis for this admission?: YesPlan: With associated diffuse edema. Will check ultrasound studies to rule out DVT since patient has had limited mobility. Patient has evidence of thick callus that has peeled off of the heels but underlying dermis is viable with no evidence of necrosis. I see no necrotic tissue nor evidence of abscess to debride. It all appears to be a diffuse cellulitis. Recommend leg elevations and antibiotics.
[2017-03-03] MEDS ORDERED: OXYCODONE HCL IR 5 MG TABLET PO PRN (22:21)
[2017-03-03] MEDS ORDERED: MAG HYDROX/AL HYDROX/SIMETH SUSP 30 ML UDCUP PO PRN (22:22)
[2017-03-03] MEDS ORDERED: ACETAMINOPHEN 325 MG TABLET PO PRN (22:22)
[2017-03-03] MEDS ORDERED: MAGNESIUM HYDROXIDE SUSP 30 ML UDCUP PO PRN (22:22)
[2017-03-03] MEDS ORDERED: IPRATROPIUM/ALBUTEROL 0.5-2.5 MG/3 ML AMPUL NEB PRN (22:22)
[2017-03-03] MEDS ORDERED: NORMAL SALINE 1000 ML 1,000 ML IV ONE (22:25)
[2017-03-03] MEDS ORDERED: VANCOMYCIN HCL 0 MG in DEXTROSE 5%-WATER 250 ML IV NR (22:30)
[2017-03-04] MEDS ORDERED: PIPERACILLIN SODIUM/TAZOBACTAM 4.5 GM in NORMAL SALINE 100 ML IV SCH ×2
[2017-03-04] MEDS ORDERED: PIPERACILLIN/TAZOBACTAM 4.5 GM VIAL IV PRN (00:19)
[2017-03-04] MEDS ORDERED: VANCOMYCIN HCL INJ 1000 MG VIAL IV PRN (00:33)
[2017-03-04] MEDS ORDERED: DEXTROSE 40% GEL 15 GM TUBE X 2 PO PRN (00:36)
[2017-03-04] MEDS ORDERED: DEXTROSE 50%-WATER SYRINGE 12.5 GM/25 ML DOSE IV PRN (00:36)
[2017-03-04] MEDS ORDERED: GLUCAGON,HUMAN RECOMB 1 MG INJ IM PRN (00:36)
[2017-03-04] MEDS ORDERED: DEXTROSE 40% GEL 15 GM TUBE PO PRN (00:36)
[2017-03-04] MEDS ORDERED: DEXTROSE 50%-WATER SYRINGE 25 GM/50 ML DOSE IV PRN (00:36)
[2017-03-04] MEDS ORDERED: PIPERACILLIN/TAZOBACTAM 4.5 GM VIAL IV ONE (01:09)
[2017-03-04] MEDS ORDERED: (PENDING PHARMACY ID) (Oxycodone Hcl [Oxycodone Hcl 10 Mg Tablet] 5 MG) PO PRN (01:09)
--- NOTE | 2017-03-04 01:21 | PDOC H&P ---
History of Present Illness Admission Date/PCP: 03/03/17 22:22 MACEY REIS MD Patient complains of: Heel ulcers History of Present Illness: David Chan is an 89-year-old male with a past medical history of diabetes, ankylosing spondylitis, BPH, hypertension, depression, neuropathy and recurrent falls. He been in his usual state of health until approximately 3 days ago noting erythema and pain to his heels bilaterally with localized erythema to his foot and subjective fever and chills prompting him to seek evaluation emergency room. In the emergency room his found to have leukocytosis fever and 3 x 3 cm ulcers to the heels bilaterally with associated +1 edema and erythema, no malodorous discharge or exudate. Patient denies chest pain shortness of breath nausea vomiting. He started on empiric antibiotics referred to the hospitalist for admission. Past Medical History Cardiac Medical History: Reports: Hypertension Endocrine Medical History: Reports: Diabetes Mellitus Type 2 Musculoskeltal Medical History: Reports: Arthritis Psychiatric Medical History: Reports: Depression Hematology: Denies: Anemia, Sickle Cell Disease Past Surgical History Past Surgical History: Reports: Cholecystectomy, Orthopedic Surgery - right knee replacement Social History Information Source: Patient, [facility] Records Lives with: Alone Smoking Status: Former Smoker Frequency of Alcohol Use: None Hx Recreational Drug Use: No Drugs: None Hx Prescription Drug Abuse: No - Advance Directive Resuscitation Status: Full Code Family History Family History: Arthritis, Hypertension Parental Family History Reviewed: Yes Children Family History Reviewed: Yes Sibling(s) Family History Reviewed.: Yes Medication/Allergy Home Medications: Amlodipine Besylate [Norvasc 10 mg Tablet] 10 mg PO DAILY 11/27/16 Duloxetine HCl [Cymbalta] 60 mg PO BID 11/27/16 Tamsulosin HCl [Flomax 0.4 mg Cap.sr] 0.4 mg PO DAILY 11/27/16 Alprazolam [Xanax 0.5 mg Tablet] 0.5 mg PO BIDP PRN #20 tablet 12/02/16 Docusate Sodium [Colace 100 mg Capsule] 100 mg PO BID #60 capsule 12/02/16 Gabapentin 600 mg PO TID 03/04/17 Ondansetron HCl [Ondansetron HCl] 1 tab PO DAILY 03/04/17 Oxycodone HCl [Oxycodone HCl 10 MG Tablet] 10 mg PO Q6 PRN 03/04/17 Pyridoxine/Chromium Picolinate [Chromium Robert Klb6 Tablet] 500 mg PO DAILY 03/04 Allergies/Adverse Reactions: No Known Allergies Allergy (Verified 03/03/17 15:47) Review of Systems Constitutional: ABSENT: chills, fever(s), headache(s), weight gain, weight loss Eyes: ABSENT: visual disturbances Ears: ABSENT: hearing changes Cardiovascular: ABSENT: chest pain, dyspnea on exertion, edema, orthropnea, palpitations Respiratory: ABSENT: cough, hemoptysis Gastrointestinal: ABSENT: abdominal pain, constipation, diarrhea, hematemesis, hematochezia, nausea, vomiting Genitourinary: ABSENT: dysuria, hematuria Musculoskeletal: ABSENT: joint swelling Integumentary: PRESENT: erythema, wounds, other - Bilateral heel ulcer and localized cellulitis to the foot. ABSENT: rash Neurological: ABSENT: abnormal gait, abnormal speech, confusion, dizziness, focal weakness, syncope Psychiatric: ABSENT: anxiety, depression, homidical ideation, suicidal ideation Endocrine: ABSENT: cold intolerance, heat intolerance, polydipsia, polyuria Hematologic/Lymphatic: ABSENT: easy bleeding, easy bruising Physical Exam Vital Signs: Temp Pulse Resp BP Pulse Ox 98.5 F 81 18 153/50 H 96 03/03/17 23:57 03/03/17 23:57 03/03/17 23:57 03/03/17 23:57 03/03/17 23:57 Intake & Output 03/02/17 03/03/17 03/04/17 11:59 11:59 11:59 Weight 105.7 kg General appearance: PRESENT: cooperative, disheveled, mild distress, morbidly obese Head exam: PRESENT: atraumatic, normocephalic Eye exam: PRESENT: conjunctiva pink, EOMI, PERRLA. ABSENT: scleral icterus Ear exam: PRESENT: normal external ear exam Mouth exam: PRESENT: moist, tongue midline Neck exam: ABSENT: carotid bruit, JVD, lymphadenopathy, thyromegaly Respiratory exam: PRESENT: clear to auscultation melvin. ABSENT: rales, rhonchi, wheezes Cardiovascular exam: PRESENT: RRR. ABSENT: diastolic murmur, rubs, systolic murmur Pulses: PRESENT: +1 pedal pulses bilateral Vascular exam: PRESENT: normal capillary refill GI/Abdominal exam: PRESENT: normal bowel sounds, soft. ABSENT: distended, guarding, mass, organolmegaly, rebound, tenderness Rectal exam: PRESENT: deferred Extremities exam: PRESENT: full ROM, pedal edema, +1 edema. ABSENT: calf tenderness, clubbing Neurological exam: PRESENT: alert, awake, oriented to person, oriented to place , oriented to time, oriented to situation, CN II-XII grossly intact. ABSENT: motor sensory deficit Psychiatric exam: PRESENT: depressed Skin exam: PRESENT: erythema, warm, other - As per history of present illness. ABSENT: intact, urticaria, vesicles Results Impressions: Foot X-Ray 03/03/17 18:36 IMPRESSION: No acute osseous finding. Assessment & Plan - Diagnosis (1) Cellulitis of both lower extremities Is this a current diagnosis for this admission?: YesPlan: Blood and Wound culture, empiric antibiotics, surgical consult follow-up CBC (2) Diabetic foot infection Is this a current diagnosis for this admission?: YesPlan: As above consider MRSA coverage (3) Depression Qualifiers: Depression Type: unspecified Qualified Code(s): F32.9 - Major depressive disorder, single episode, unspecified Is this a current diagnosis for this admission?: YesPlan: Consider additional agent patient appears with flat affect and recently (4) Diabetes mellitus type II, controlled Qualifiers: Diabetes mellitus complication status: with unspecified complications Diabetes mellitus care home insulin use: without care home use Qualified Code(s): E11.8 - Type 2 diabetes mellitus with unspecified complications; Z79.4 - detention (current) use of insulin Is this a current diagnosis for this admission?: YesPlan: Obtain an A1c, diabetic diet sliding scale insulin (5) Gait disorder Is this a current diagnosis for this admission?: YesPlan: Patient has several severe comorbid conditions concern for inability to return to independent setting will obtain discharge planning consultation - Time Time Spent: 50 to 70 Minutes - Inpatient Certification Medical Necessity: Need Close Monitoring Due to Risk of Patient Decompensation
[2017-03-04] MEDS ORDERED: VANCOMYCIN HCL INJ 1000 MG VIAL ONE (01:38)
[2017-03-04] MEDS ORDERED: VANCOMYCIN HCL 1,000 MG in DEXTROSE 5%-WATER 250 ML IV ONE (02:00)
[2017-03-04] MEDS: HEPARIN SOD (PORCINE) 5,000 UNIT/ML 1 ML SYRINGE SUBCUT SCH ×3 (06:41→21:46)
[2017-03-04 07:28] LABS: ABSOLUTE EOSINOPHILS # (AUTO) 0.1 10^3/uL (0.0-0.6); ABSOLUTE LYMPHOCYTES (AUTO) 1.5 10^3/uL (0.5-4.7); ABSOLUTE MONOCYTES (AUTO) 1.1 10^3/uL (0.1-1.4); ABSOLUTE NEUT (AUTO) 6.1 10^3/uL (1.7-8.2); BASOPHILS % (AUTO) 0.1 % (0-2); EOSINOPHILS % (AUTO) 0.9 % (0-6); HEMATOCRIT 31.1 % (37.9-51.0); HEMOGLOBIN 10.5 g/dL (13.5-17.0); HGB HCT DIFFERENCE 0.4; LYMPHOCYTES % (AUTO) 17.3 % (13-45); MEAN CORPUSCULAR HEMOGLOBIN 27.5 pg (27.0-33.4); MEAN CORPUSCULAR HGB CONC 33.7 g/dL (32.0-36.0); MEAN CORPUSCULAR VOLUME 81 fl (80-97); MONOCYTES % (AUTO) 12.4 % (3-13); RED BLOOD COUNT 3.82 10^6/uL (4.35-5.55); RED CELL DISTRIBUTION WIDTH 14.9 % (11.5-14.0); SEGMENTED NEUTROPHILS % (AUTO) 69.3 % (42-78); WHITE BLOOD COUNT 8.8 10^3/uL (4.0-10.5)
[2017-03-04 07:43] LABS: ANION GAP 9 (5-19); BLOOD UREA NITROGEN 20 mg/dL (7-20); CALCIUM 8.7 mg/dL (8.4-10.2); CARBON DIOXIDE 26 mmol/L (22-30); CHLORIDE 105 mmol/L (98-107); CREATININE RESULT 0.77 mg/dL (0.52-1.25); GLUCOSE 175 mg/dL (75-110); POTASSIUM 4.1 mmol/L (3.6-5.0); SODIUM 139.9 mmol/L (137-145)
[2017-03-04] MEDS ORDERED: GABAPENTIN 300 MG CAPSULE PO ONE (08:00)
--- NOTE | 2017-03-04 08:11 | PROGRESS NOTE E ---
Progress Note NAME: LIBERTY TIRADO : 1925 AGE: 89Y DATE: 03/04/2017 ROOM: 536 SUBJECTIVE: This patient just had a venous ultrasound of lower extremities, but also ordered arterial Doppler. I just want to check the arterial circulation since he has got palpable popliteal pulses, but unable to palpate ankle pulses. However, both feet are warm. OBJECTIVE: EXTREMITIES: He has got a blister on the left anterior vital that is not popped at this time. The blister roughly measures about 1-cm wide by about 2-cm long. He has got ulcers on both heels that are dry. The right heel ulcer appears to be partial skin thickness. However, on the left heel there is an area of very adherent dry necrotic area. Both heels do not look infected at this time. PLAN: Aggressive management of these ulcers at this time will be determined on his ambulatory status. 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 He apparently had been on physical therapy and able to stand up and just starting to ambulate when Medicare apparently stopped his physical therapy visits and that is why he said he is not probably going to walk. At any rate, an arterial Doppler will be ordered to better evaluate the vascular status of both feet. In the meantime, it is best to keep the off pressure, just to keep them open to air at this time. DICTATING PHYSICIAN: RUY MARY M.D. [id number] PHY#: [id number] ID: [id number] JOB#: [id number] ACCT: [id number] cc: >
[2017-03-04] MEDS: INSULIN LISPRO 100 UNIT/ML 3 ML VIAL SUBCUT PRN ×3 (08:34→17:36)
[2017-03-04] MEDS: DOCUSATE SODIUM 100 MG CAPSULE PO SCH ×2 (09:43→17:36)
[2017-03-04] MEDS: PIPERACILLIN SODIUM/TAZOBACTAM 4.5 GM in NORMAL SALINE 100 ML IV SCH ×3 (09:43→21:46)
[2017-03-04] MEDS: TAMSULOSIN HCL 0.4 MG CAP.SR.24H PO SCH (09:43)
[2017-03-04] MEDS: AMLODIPINE BESYLATE 10 MG TABLET PO SCH (09:44)
[2017-03-04] MEDS: LACTULOSE SYRUP 20 GM/30 ML UDCUP PO SCH (09:44)
[2017-03-04] MEDS: DULOXETINE HCL 30 MG CAPSULE.DR PO SCH ×2 (09:44→17:36)
[2017-03-04] MEDS ORDERED: GABAPENTIN 400 MG CAPSULE PO SCH (10:00)
[2017-03-04] MEDS: VANCOMYCIN HCL 1,000 MG in DEXTROSE 5%-WATER 250 ML IV SCH ×2 (10:51→23:32)
[2017-03-04] MEDS: GABAPENTIN 300 MG CAPSULE PO SCH ×2 (14:11→21:46)
--- NOTE | 2017-03-04 14:22 | PDOC PROGRESS REPORT ---
Subjective Progress Note for:: 03/04/17 Subjective:: Patient is seen on morning rounds. He is sleeping soundly in bed. He awakens to verbal stimuli. He denies any chest pain, shortness of breath or dyspnea. He denies any nausea, vomiting or abdominal pain. He states both of his heels are sore. He denies any fevers or chills. Rest of review of systems is unremarkable. Physical Exam Vital Signs: Temp Pulse Resp BP Pulse Ox 98.3 F 696 H 18 145/49 H 95 03/04/17 11:28 03/04/17 13:44 03/04/17 13:44 03/04/17 11:28 03/04/17 13:44 Intake & Output 03/03/17 03/04/17 03/05/17 06:59 06:59 06:59 Intake Total 60 Balance 60 Weight 105.7 kg General appearance: PRESENT: no acute distress, obese, well-developed, well- nourished Head exam: PRESENT: atraumatic, normocephalic Eye exam: PRESENT: conjunctiva pink, EOMI, PERRLA. ABSENT: scleral icterus Ear exam: PRESENT: bleeding Mouth exam: PRESENT: moist, tongue midline Neck exam: PRESENT: carotid bruit Respiratory exam: PRESENT: clear to auscultation melvin. ABSENT: rales, rhonchi, wheezes Cardiovascular exam: PRESENT: RRR, systolic murmur. ABSENT: diastolic murmur, rubs Pulses: PRESENT: normal carotid pulses, normal radial pulses Vascular exam: PRESENT: normal capillary refill GI/Abdominal exam: PRESENT: normal bowel sounds, soft. ABSENT: distended, guarding, mass, organolmegaly, rebound, tenderness Rectal exam: PRESENT: deferred Extremities exam: PRESENT: full ROM. ABSENT: calf tenderness, clubbing, pedal edema Musculoskeletal exam: PRESENT: full ROM, normal inspection, tenderness Neurological exam: PRESENT: alert, awake, oriented to person, oriented to place , oriented to time, oriented to situation, CN II-XII grossly intact. ABSENT: motor sensory deficit Psychiatric exam: PRESENT: appropriate affect, normal mood. ABSENT: homicidal ideation, suicidal ideation Skin exam: PRESENT: other - heel ulcers covered with dry sterile dressing at the present time Results Laboratory Results: 03/04/17 06:57 03/04/17 06:57 03/04/17 03/04/17 06:57 06:57 WBC 8.8 RBC 3.82 L Hgb 10.5 L Hct 31.1 L MCV 81 MCH 27.5 MCHC 33.7 RDW 14.9 H Plt Count 238 Seg Neutrophils % 69.3 Lymphocytes % 17.3 Monocytes % 12.4 Eosinophils % 0.9 Basophils % 0.1 Absolute Neutrophils 6.1 Absolute Lymphocytes 1.5 Absolute Monocytes 1.1 Absolute Eosinophils 0.1 Absolute Basophils 0.0 Sodium 139.9 Potassium 4.1 Chloride 105 Carbon Dioxide 26 Anion Gap 9 BUN 20 Creatinine 0.77 Est GFR ( Amer) > 60 Est GFR (Non-Af Amer) > 60 Glucose 175 H Calcium 8.7 Impressions: Foot X-Ray 03/03/17 18:36 IMPRESSION: No acute osseous finding. Assessment & Plan - Diagnosis (1) Cellulitis of both lower extremities Is this a current diagnosis for this admission?: YesPlan: Continue broad spectrum IV antibiotics. Awaiting surgialist consult for wound management (2) Gait disorder Is this a current diagnosis for this admission?: YesPlan: Physical therapy (3) Back pain Qualifiers: Back pain location: back pain in unspecified location Chronicity: acute Back pain laterality: midline Qualified Code(s): M54.9 - Dorsalgia, unspecified Is this a current diagnosis for this admission?: Yes (4) Diabetes mellitus type II, controlled Qualifiers: Diabetes mellitus complication status: with unspecified complications Diabetes mellitus care home insulin use: without long term care pharmacist use Qualified Code(s): E11.8 - Type 2 diabetes mellitus with unspecified complications; Z79.4 - senior living (current) use of insulin Is this a current diagnosis for this admission?: YesPlan: Continue current medications and sliding scale coverage (5) Peripheral neuropathy Qualifiers: Peripheral neuropathy type: polyneuropathy, unspecified Qualified Code(s): G62.9 - Polyneuropathy, unspecified Is this a current diagnosis for this admission?: YesPlan: Continue neurolyptics (6) Depression Qualifiers: Depression Type: unspecified Qualified Code(s): F32.9 - Major depressive disorder, single episode, unspecified Is this a current diagnosis for this admission?: Yes (7) Hypertension Qualifiers: Hypertension type: essential hypertension Qualified Code(s): I10 - Essential (primary) hypertension Is this a current diagnosis for this admission?: YesPlan: Continue current medications. Patient is normotensive - Time Time Spent with patient: 25-34 minutes Critical Time spent with patient: 15-24 minutes Medications reviewed and adjusted accordingly: Yes Anticipated discharge: SNF
--- NOTE | 2017-03-04 16:17 | XCELERA REPORT ---
[address] [address] Lower Extremity Arterial Evaluation Name: LIBERTY TIRADO Age: 89 yrs Gender: Male : 1925 Patient Status: Inpatient Patient Location: 5\S\536\S\A Study Date: 03/04/2017 10:26 AM Procedure: A color flow and duplex scan of the lower extremity arteries was performed bilaterally with velocity and waveform anaylsis. Ankle brachial indicies performed. Reason For Study: FOOT ULCERS Ordering Physician: RUY MARY Performed By: Marielle Cohn Measurements and Calculations Right Left HOT METAL MIXER OPERATOR PSV 106.9 153.2 cm/sec Prox PFA PSV 264.0 177.2 cm/sec Prox SFA PSV 31.8 28.0 cm/sec Mid SFA PSV -336.3 cm/sec Dist SFA PSV -35.6 cm/sec Prox Pop A PSV 135.5 50.3 cm/sec Dist Pop A PSV -78.3 -91.5 cm/sec Prox YAO PSV 83.0 cm/sec Dist YAO PSV 32.1 35.8 cm/sec Dist DESIGN PAINTER PSV -52.4 -61.8 cm/sec Asim Pedis PSV 32.3 12.6 cm/sec Right Side Arterial Evaluation Normal velocity and biphasic waveforms noted in the Common Femoral artery Biphasic and stenotic Deep Femoral. Occluded Femoral with monophasic reconstitution to the infrageniculate vessels. Trickle flow below the knee with spectral broadening. 20-49 % stenosis at the Common Femoral artery. With severe sequential disease. Ankle Brachial index not done due to inability to tolerate. Left Side Arterial Evaluation Normal velocity and biphasic waveforms noted in the Common Femoral artery.. Stenotic Femoral monophasic to the infrageniculate vessels. Trickle flow below the knee with spectral broadening. Distal occlusion of Anterior Tibial artery 20-49 % stenosis at the Common Femoral artery. With severe sequential disease. Ankle Brachial index not done due to inability to tolerate. Critical Findings Called in to Dr Mary at about 1615 hours. Interpretation Summary Severe hemodynamically significant lesions in the bilateral lower extremities, on duplex imaging, at rest. Severe enough that limb threat should be considered in clinical context. : RUY MARY > Garcia Field
[2017-03-04] MEDS: ALPRAZOLAM 0.5 MG TABLET PO PRN (22:30)
[2017-03-04] MEDS: OXYCODONE HCL IR 5 MG TABLET PO PRN (22:30)
[2017-03-05] MEDS: PIPERACILLIN SODIUM/TAZOBACTAM 4.5 GM in NORMAL SALINE 100 ML IV SCH ×4 (03:07→21:26)
[2017-03-05] MEDS: GABAPENTIN 300 MG CAPSULE PO SCH ×3 (05:38→21:27)
[2017-03-05] MEDS: HEPARIN SOD (PORCINE) 5,000 UNIT/ML 1 ML SYRINGE SUBCUT SCH ×3 (05:38→21:26)
[2017-03-05] MEDS: OXYCODONE HCL IR 5 MG TABLET PO PRN ×3 (05:38→21:27)
[2017-03-05 05:50] LABS: ABSOLUTE EOSINOPHILS # (AUTO) 0.1 10^3/uL (0.0-0.6); ABSOLUTE LYMPHOCYTES (AUTO) 1.7 10^3/uL (0.5-4.7); ABSOLUTE NEUT (AUTO) 6.3 10^3/uL (1.7-8.2); BASOPHILS % (AUTO) 0.2 % (0-2); EOSINOPHILS % (AUTO) 1.5 % (0-6); HEMATOCRIT 31.7 % (37.9-51.0); HEMOGLOBIN 10.8 g/dL (13.5-17.0); HGB HCT DIFFERENCE 0.7; LYMPHOCYTES % (AUTO) 18.6 % (13-45); MEAN CORPUSCULAR HEMOGLOBIN 27.3 pg (27.0-33.4); MEAN CORPUSCULAR HGB CONC 34.1 g/dL (32.0-36.0); MEAN CORPUSCULAR VOLUME 80 fl (80-97); MONOCYTES % (AUTO) 10.7 % (3-13); RED BLOOD COUNT 3.96 10^6/uL (4.35-5.55); RED CELL DISTRIBUTION WIDTH 14.8 % (11.5-14.0); WHITE BLOOD COUNT 9.2 10^3/uL (4.0-10.5)
[2017-03-05 06:06] LABS: ANION GAP 13 (5-19); BLOOD UREA NITROGEN 15 mg/dL (7-20); CALCIUM 8.8 mg/dL (8.4-10.2); CARBON DIOXIDE 25 mmol/L (22-30); CHLORIDE 103 mmol/L (98-107); CREATININE RESULT 0.77 mg/dL (0.52-1.25); GLUCOSE 146 mg/dL (75-110); POTASSIUM 3.7 mmol/L (3.6-5.0); SODIUM 141.2 mmol/L (137-145)
[2017-03-05] MEDS: INSULIN LISPRO 100 UNIT/ML 3 ML VIAL SUBCUT PRN ×3 (08:48→17:11)
[2017-03-05] MEDS: LACTULOSE SYRUP 20 GM/30 ML UDCUP PO SCH (09:35)
[2017-03-05] MEDS: TAMSULOSIN HCL 0.4 MG CAP.SR.24H PO SCH (09:36)
[2017-03-05] MEDS: DULOXETINE HCL 30 MG CAPSULE.DR PO SCH ×2 (09:36→17:11)
[2017-03-05] MEDS: AMLODIPINE BESYLATE 10 MG TABLET PO SCH (09:36)
[2017-03-05] MEDS: DOCUSATE SODIUM 100 MG CAPSULE PO SCH ×2 (09:36→17:11)
[2017-03-05] MEDS ORDERED: POLYETHYLENE GLYCOL 3350 POWDER 17 GM/1 PACKET PO PRN (10:06)
[2017-03-05] MEDS: VANCOMYCIN HCL 1,000 MG in DEXTROSE 5%-WATER 250 ML IV SCH ×2 (11:02→23:35)
[2017-03-05] MEDS ORDERED: BISACODYL 10 MG SUPP.RECT PR ONE (11:30)
--- NOTE | 2017-03-05 13:32 | PDOC PROGRESS REPORT ---
Subjective Progress Note for:: 03/05/17 Subjective:: Patient is seen on morning rounds. He is sleeping soundly in bed. He awakens to verbal stimuli. He denies any chest pain, shortness of breath or dyspnea. He denies any nausea, vomiting or abdominal pain. He states both of his heels are sore but pain medication relieves this. He denies any fevers or chills. Rest of review of systems is unremarkable. Physical Exam Vital Signs: Temp Pulse Resp BP Pulse Ox 98.7 F 79 20 145/59 H 93 03/05/17 08:00 03/05/17 08:00 03/05/17 08:00 03/05/17 08:00 03/05/17 08:00 Intake & Output 03/04/17 03/05/17 03/06/17 06:59 06:59 06:59 Intake Total 60 3400 Balance 60 3400 Weight 105.7 kg 109 kg General appearance: PRESENT: no acute distress, obese, well-developed, well- nourished Head exam: PRESENT: atraumatic, normocephalic Eye exam: PRESENT: conjunctiva pink, EOMI, PERRLA. ABSENT: scleral icterus Ear exam: PRESENT: normal external ear exam Mouth exam: PRESENT: moist, tongue midline Neck exam: ABSENT: carotid bruit, JVD, lymphadenopathy, thyromegaly Respiratory exam: PRESENT: clear to auscultation melvin. ABSENT: rales, rhonchi, wheezes Cardiovascular exam: PRESENT: RRR. ABSENT: diastolic murmur, rubs, systolic murmur Pulses: PRESENT: normal carotid pulses, normal radial pulses Vascular exam: PRESENT: normal capillary refill GI/Abdominal exam: PRESENT: normal bowel sounds, soft. ABSENT: distended, guarding, mass, organolmegaly, rebound, tenderness Rectal exam: PRESENT: deferred Extremities exam: PRESENT: full ROM. ABSENT: calf tenderness, clubbing, pedal edema Musculoskeletal exam: PRESENT: tenderness - bilateral Neurological exam: PRESENT: alert, awake, oriented to person, oriented to place , oriented to time, oriented to situation, CN II-XII grossly intact. ABSENT: motor sensory deficit Psychiatric exam: PRESENT: appropriate affect, normal mood. ABSENT: homicidal ideation, suicidal ideation Skin exam: PRESENT: other - bilateral open heel wounds Results Laboratory Results: 03/05/17 05:18 03/05/17 05:18 03/05/17 03/05/17 05:18 05:18 WBC 9.2 RBC 3.96 L Hgb 10.8 L Hct 31.7 L MCV 80 MCH 27.3 MCHC 34.1 RDW 14.8 H Plt Count 231 Seg Neutrophils % 69.0 Lymphocytes % 18.6 Monocytes % 10.7 Eosinophils % 1.5 Basophils % 0.2 Absolute Neutrophils 6.3 Absolute Lymphocytes 1.7 Absolute Monocytes 1.0 Absolute Eosinophils 0.1 Absolute Basophils 0.0 Sodium 141.2 Potassium 3.7 Chloride 103 Carbon Dioxide 25 Anion Gap 13 BUN 15 Creatinine 0.77 Est GFR ( Amer) > 60 Est GFR (Non-Af Amer) > 60 Glucose 146 H Calcium 8.8 Impressions: Foot X-Ray 03/03/17 18:36 IMPRESSION: No acute osseous finding. Assessment & Plan - Diagnosis (1) Cellulitis of both lower extremities Is this a current diagnosis for this admission?: YesPlan: Continue broad spectrum IV antibiotics. Awaiting surgialist consult for wound management (2) Gait disorder Is this a current diagnosis for this admission?: YesPlan: Physical therapy (3) Back pain Qualifiers: Back pain location: back pain in unspecified location Chronicity: acute Back pain laterality: midline Qualified Code(s): M54.9 - Dorsalgia, unspecified Is this a current diagnosis for this admission?: Yes (4) Diabetes mellitus type II, controlled Qualifiers: Diabetes mellitus complication status: with unspecified complications Diabetes mellitus nursing home insulin use: without termite treater use Qualified Code(s): E11.8 - Type 2 diabetes mellitus with unspecified complications; Z79.4 - prison (current) use of insulin Is this a current diagnosis for this admission?: YesPlan: Continue current medications and sliding scale coverage (5) Peripheral neuropathy Qualifiers: Peripheral neuropathy type: polyneuropathy, unspecified Qualified Code(s): G62.9 - Polyneuropathy, unspecified Is this a current diagnosis for this admission?: YesPlan: Continue neurolyptics (6) Depression Qualifiers: Depression Type: unspecified Qualified Code(s): F32.9 - Major depressive disorder, single episode, unspecified Is this a current diagnosis for this admission?: Yes (7) Hypertension Qualifiers: Hypertension type: essential hypertension Qualified Code(s): I10 - Essential (primary) hypertension Is this a current diagnosis for this admission?: YesPlan: Continue current medications. Patient is normotensive - Time Time Spent with patient: 25-34 minutes Critical Time spent with patient: 15-24 minutes Medications reviewed and adjusted accordingly: Yes
--- NOTE | 2017-03-05 18:03 | PROGRESS NOTE E ---
Progress Note NAME: LIBERTY TIRADO : 1925 AGE: 89Y DATE: ROOM: 536 I discussed the management of his heel ulcers after an arterial Doppler was done. Arterial Doppler showed occlusion of the right femoral artery and stenosis of the left femoral artery with a small vessel occlusive disease along the 3 vessels below the popliteal artery. The right heel appears to be getting better and appears to be more superficial. However, the left heel appears to have extension of the necrotic area. The first thing that he told me was "I do not want any more operation." I told him that there might be an option or minimal procedure of angioplasty if his arterial anatomy is feasible. He is not sure if he wants to go ahead with this, and the main thing that he told me is he does not want any other procedure to be done. We will try to make arrangements for him to be followed up in the wound care center and hopefully, as long as the ulcers remain dry, which they are at this time, then further management may be more of a wait and see. However, more definitive management will be offered at the wound care center when they see him there. Meantime, continue with IV antibiotic therapy for the next 48 hours. DICTATING PHYSICIAN: RUY MARY M.D. [id number] PHY#: [id number] ID: [id number] JOB#: [id number] ACCT: [id number] cc: >
[2017-03-05] MEDS: ALPRAZOLAM 0.5 MG TABLET PO PRN (21:27)
[2017-03-06] MEDS: PIPERACILLIN SODIUM/TAZOBACTAM 4.5 GM in NORMAL SALINE 100 ML IV SCH ×4 (03:40→22:08)
[2017-03-06] MEDS: GABAPENTIN 300 MG CAPSULE PO SCH ×3 (05:05→22:08)
[2017-03-06] MEDS: HEPARIN SOD (PORCINE) 5,000 UNIT/ML 1 ML SYRINGE SUBCUT SCH ×3 (05:06→22:08)
[2017-03-06] MEDS: OXYCODONE HCL IR 5 MG TABLET PO PRN ×2 (05:06→17:03)
[2017-03-06 06:13] LABS: ABSOLUTE EOSINOPHILS # (AUTO) 0.2 10^3/uL (0.0-0.6); ABSOLUTE LYMPHOCYTES (AUTO) 1.6 10^3/uL (0.5-4.7); ABSOLUTE MONOCYTES (AUTO) 0.8 10^3/uL (0.1-1.4); ABSOLUTE NEUT (AUTO) 5.9 10^3/uL (1.7-8.2); BASOPHILS % (AUTO) 0.3 % (0-2); EOSINOPHILS % (AUTO) 2.3 % (0-6); HEMOGLOBIN 11.2 g/dL (13.5-17.0); HGB HCT DIFFERENCE 0.6; LYMPHOCYTES % (AUTO) 18.5 % (13-45); MEAN CORPUSCULAR HEMOGLOBIN 27.5 pg (27.0-33.4); MEAN CORPUSCULAR VOLUME 81 fl (80-97); MONOCYTES % (AUTO) 9.7 % (3-13); RED BLOOD COUNT 4.09 10^6/uL (4.35-5.55); RED CELL DISTRIBUTION WIDTH 14.6 % (11.5-14.0); SEGMENTED NEUTROPHILS % (AUTO) 69.2 % (42-78); WHITE BLOOD COUNT 8.6 10^3/uL (4.0-10.5)
[2017-03-06 06:37] LABS: ANION GAP 12 (5-19); BLOOD UREA NITROGEN 15 mg/dL (7-20); CALCIUM 8.9 mg/dL (8.4-10.2); CARBON DIOXIDE 25 mmol/L (22-30); CHLORIDE 103 mmol/L (98-107); CREATININE RESULT 0.85 mg/dL (0.52-1.25); GLUCOSE 147 mg/dL (75-110); POTASSIUM 3.6 mmol/L (3.6-5.0); SODIUM 139.9 mmol/L (137-145)
[2017-03-06] MEDS ORDERED: NA PHOS,M-B/NA PHOS,DI-BA (ADULT) 133 ML ENEMA PR PRN (09:11)
[2017-03-06] MEDS: AMLODIPINE BESYLATE 10 MG TABLET PO SCH (09:37)
[2017-03-06] MEDS: TAMSULOSIN HCL 0.4 MG CAP.SR.24H PO SCH (09:37)
[2017-03-06] MEDS: DULOXETINE HCL 30 MG CAPSULE.DR PO SCH ×2 (09:38→17:05)
[2017-03-06] MEDS: LACTULOSE SYRUP 20 GM/30 ML UDCUP PO SCH (09:38)
[2017-03-06] MEDS: DOCUSATE SODIUM 100 MG CAPSULE PO SCH ×2 (09:38→17:06)
[2017-03-06 11:20] LABS: CREATININE RESULT 0.81 mg/dL (0.52-1.25)
[2017-03-06] MEDS: INSULIN LISPRO 100 UNIT/ML 3 ML VIAL SUBCUT PRN ×2 (11:29→18:12)
[2017-03-06] MEDS: VANCOMYCIN HCL 1,000 MG in DEXTROSE 5%-WATER 250 ML IV SCH (11:30)
--- NOTE | 2017-03-06 11:58 | PDOC PROGRESS REPORT ---
Subjective Progress Note for:: 03/06/17 Subjective:: Patient is seen on morning rounds. He is eating breakfast in bed. He denies any chest pain, shortness of breath or dyspnea. He denies any nausea, vomiting or abdominal pain. He states both of his heels are sore but pain medication relieves this. He denies any fevers or chills. Rest of review of systems is unremarkable. Physical Exam Vital Signs: Temp Pulse Resp BP Pulse Ox 98.3 F 82 20 123/65 94 03/06/17 07:42 03/06/17 07:42 03/06/17 07:42 03/06/17 07:42 03/06/17 07:42 Intake & Output 03/05/17 03/06/17 03/07/17 06:59 06:59 06:59 Intake Total 3400 1492 Balance 3400 1492 Weight 109 kg 109.3 kg General appearance: PRESENT: no acute distress, obese, well-developed, well- nourished Head exam: PRESENT: atraumatic, normocephalic Eye exam: PRESENT: conjunctiva pink, EOMI, PERRLA. ABSENT: scleral icterus Ear exam: PRESENT: normal external ear exam Neck exam: ABSENT: carotid bruit, JVD, lymphadenopathy, thyromegaly Respiratory exam: PRESENT: clear to auscultation melvin, symmetrical, unlabored. ABSENT: rales, rhonchi, wheezes Cardiovascular exam: PRESENT: RRR. ABSENT: diastolic murmur, rubs, systolic murmur Pulses: PRESENT: normal carotid pulses, normal radial pulses Vascular exam: PRESENT: normal capillary refill GI/Abdominal exam: PRESENT: normal bowel sounds, soft. ABSENT: distended, guarding, mass, organolmegaly, rebound, tenderness Rectal exam: PRESENT: deferred Extremities exam: PRESENT: tenderness - bilateral posterior heel. Left foot cooler than right Musculoskeletal exam: PRESENT: full ROM, tenderness Neurological exam: PRESENT: alert, awake, oriented to person, oriented to place , oriented to time, oriented to situation, CN II-XII grossly intact. ABSENT: motor sensory deficit Psychiatric exam: PRESENT: appropriate affect, normal mood. ABSENT: homicidal ideation, suicidal ideation Skin exam: PRESENT: other - bilateral heel wounds, right improving, left with continued area of eschar, Results Laboratory Results: 03/06/17 05:51 03/06/17 10:50 03/06/17 03/06/17 03/06/17 05:51 05:51 10:50 WBC 8.6 RBC 4.09 L Hgb 11.2 L Hct 33.0 L MCV 81 MCH 27.5 MCHC 34.0 RDW 14.6 H Plt Count 257 Seg Neutrophils % 69.2 Lymphocytes % 18.5 Monocytes % 9.7 Eosinophils % 2.3 Basophils % 0.3 Absolute Neutrophils 5.9 Absolute Lymphocytes 1.6 Absolute Monocytes 0.8 Absolute Eosinophils 0.2 Absolute Basophils 0.0 Sodium 139.9 Potassium 3.6 Chloride 103 Carbon Dioxide 25 Anion Gap 12 BUN 15 Creatinine 0.85 0.81 Est GFR ( Amer) > 60 > 60 Est GFR (Non-Af Amer) > 60 > 60 Glucose 147 H Calcium 8.9 Impressions: Foot X-Ray 03/03/17 18:36 IMPRESSION: No acute osseous finding. Assessment & Plan - Diagnosis (1) Cellulitis of both lower extremities Is this a current diagnosis for this admission?: YesPlan: Will continue IV antibiotics another 24 hrs. Blood cultures are negative. Surgialist following. (2) PAD (peripheral artery disease) Is this a current diagnosis for this admission?: YesPlan: Patient had FALGUNI's which show left femoral arterial occlusion. Dr Maguire spoke with patient about angioplasty and stenting. Patient states he wants no further procedures or surgery at his age. His aware that this will interfere with wound healing on the left foot (3) Gait disorder Is this a current diagnosis for this admission?: YesPlan: Physical therapy (4) Back pain Qualifiers: Back pain location: back pain in unspecified location Chronicity: acute Back pain laterality: midline Qualified Code(s): M54.9 - Dorsalgia, unspecified Is this a current diagnosis for this admission?: Yes (5) Diabetes mellitus type II, controlled Qualifiers: Diabetes mellitus complication status: with unspecified complications Diabetes mellitus jail insulin use: without manager intermediate use Qualified Code(s): E11.8 - Type 2 diabetes mellitus with unspecified complications; Z79.4 - bed bug exterminator (current) use of insulin Is this a current diagnosis for this admission?: YesPlan: Continue current medications and sliding scale coverage (6) Peripheral neuropathy Qualifiers: Peripheral neuropathy type: polyneuropathy, unspecified Qualified Code(s): G62.9 - Polyneuropathy, unspecified Is this a current diagnosis for this admission?: YesPlan: Continue neurolyptics (7) Depression Qualifiers: Depression Type: unspecified Qualified Code(s): F32.9 - Major depressive disorder, single episode, unspecified Is this a current diagnosis for this admission?: YesPlan: Continue home medications (8) Hypertension Qualifiers: Hypertension type: essential hypertension Qualified Code(s): I10 - Essential (primary) hypertension Is this a current diagnosis for this admission?: YesPlan: Continue current medications. Patient is normotensive - Time Time Spent with patient: 25-34 minutes Critical Time spent with patient: 15-24 minutes Medications reviewed and adjusted accordingly: Yes
[2017-03-06] MEDS ORDERED: BISACODYL 10 MG SUPP.RECT PR PRN (14:06)
--- NOTE | 2017-03-06 14:54 | PROGRESS NOTE E ---
Progress Note NAME: LIBERTY TIRADO : 1925 AGE: 89Y DATE: 03/06/2017 ROOM: 536 The patient remains afebrile with a white count of 8.6. The first thing that he told when seen this morning was "no operation." He denies any pains in both feet. The right heel ulcer appears to be getting better and the left heel ulcer appears to have a slightly more dry necrotic tissue. I even told him that he may be a candidate for an angioplasty, but he said even that he would not agree on, so I think the best thing is just having him follow up at [facility] to make sure no further infection of his ulcers develop. In the meantime, continue his antibiotics for the next 24 hours and discharge to be followed at the [facility]. DICTATING PHYSICIAN: RUY MARY M.D. [id number] PHY#: [id number] ID: [id number] JOB#: [id number] ACCT: [id number] cc: >
[2017-03-07] MEDS: VANCOMYCIN HCL 1,000 MG in DEXTROSE 5%-WATER 250 ML IV SCH (00:29)
[2017-03-07] MEDS: PIPERACILLIN SODIUM/TAZOBACTAM 4.5 GM in NORMAL SALINE 100 ML IV SCH (02:41)
[2017-03-07] MEDS: HEPARIN SOD (PORCINE) 5,000 UNIT/ML 1 ML SYRINGE SUBCUT SCH ×3 (06:16→22:27)
[2017-03-07] MEDS: GABAPENTIN 300 MG CAPSULE PO SCH ×3 (06:17→22:27)
[2017-03-07] MEDS: DULOXETINE HCL 30 MG CAPSULE.DR PO SCH ×2 (10:41→17:50)
[2017-03-07] MEDS: TAMSULOSIN HCL 0.4 MG CAP.SR.24H PO SCH (10:41)
[2017-03-07] MEDS: AMLODIPINE BESYLATE 10 MG TABLET PO SCH (10:41)
[2017-03-07] MEDS: DOCUSATE SODIUM 100 MG CAPSULE PO SCH ×2 (10:41→17:50)
[2017-03-07] MEDS: LACTULOSE SYRUP 20 GM/30 ML UDCUP PO SCH (10:42)
--- NOTE | 2017-03-07 13:55 | PDOC PROGRESS REPORT ---
Subjective Progress Note for:: 03/07/17 Subjective:: Patient is seen on morning rounds. He is eating breakfast in bed. He denies any chest pain, shortness of breath or dyspnea. He denies any nausea, vomiting or abdominal pain. He states both of his heels are sore but pain medication relieves this. He denies any fevers or chills. Rest of review of systems is unremarkable. Physical Exam Vital Signs: Temp Pulse Resp BP Pulse Ox 98.1 F 85 17 137/76 H 94 03/07/17 11:44 03/07/17 11:44 03/07/17 11:44 03/07/17 11:44 03/07/17 11:44 Intake & Output 03/06/17 03/07/17 03/08/17 06:59 06:59 06:59 Intake Total 1492 2029 Balance 1492 2029 Weight 109.3 kg 105.7 kg General appearance: PRESENT: no acute distress, obese, well-developed, well- nourished Head exam: PRESENT: atraumatic, normocephalic Eye exam: PRESENT: conjunctiva pink, EOMI, PERRLA. ABSENT: scleral icterus Ear exam: PRESENT: normal external ear exam Mouth exam: PRESENT: moist, tongue midline Neck exam: ABSENT: carotid bruit, JVD, lymphadenopathy, thyromegaly Respiratory exam: PRESENT: clear to auscultation melvin. ABSENT: rales, rhonchi, wheezes Cardiovascular exam: PRESENT: RRR. ABSENT: diastolic murmur, rubs, systolic murmur Pulses: PRESENT: normal dorsalis pedis pul Vascular exam: PRESENT: normal capillary refill GI/Abdominal exam: PRESENT: normal bowel sounds, soft. ABSENT: distended, guarding, mass, organolmegaly, rebound, tenderness Rectal exam: PRESENT: deferred Extremities exam: PRESENT: full ROM. ABSENT: calf tenderness, clubbing, pedal edema Musculoskeletal exam: PRESENT: full ROM, tenderness Neurological exam: PRESENT: alert, awake, oriented to person, oriented to place , oriented to time, oriented to situation, CN II-XII grossly intact. ABSENT: motor sensory deficit Psychiatric exam: PRESENT: appropriate affect, normal mood. ABSENT: homicidal ideation, suicidal ideation Skin exam: PRESENT: other - Bilateral open heel wounds. Left with darkened eschar in the center, right appears pink and granulating. Results Laboratory Results: 03/06/17 05:51 03/06/17 10:50 Impressions: Foot X-Ray 03/03/17 18:36 IMPRESSION: No acute osseous finding. Assessment & Plan - Diagnosis (1) Cellulitis of both lower extremities Is this a current diagnosis for this admission?: YesPlan: We'll change to oral antibiotics. Patient will need follow-up in the wound care center. He has refused any angioplasty or stenting to left occluded femoral artery. (2) PAD (peripheral artery disease) Is this a current diagnosis for this admission?: YesPlan: Patient had FALGUNI's which show left femoral arterial occlusion. Dr Maguire spoke with patient about angioplasty and stenting. Patient states he wants no further procedures or surgery at his age. His aware that this will interfere with wound healing on the left foot (3) Gait disorder Is this a current diagnosis for this admission?: YesPlan: Physical therapy (4) Back pain Qualifiers: Back pain location: back pain in unspecified location Chronicity: acute Back pain laterality: midline Qualified Code(s): M54.9 - Dorsalgia, unspecified Is this a current diagnosis for this admission?: YesPlan: When necessary analgesics (5) Diabetes mellitus type II, controlled Qualifiers: Diabetes mellitus complication status: with unspecified complications Diabetes mellitus skilled nursing insulin use: without skilled nursing use Qualified Code(s): E11.8 - Type 2 diabetes mellitus with unspecified complications; Z79.4 - [facility] (current) use of insulin Is this a current diagnosis for this admission?: YesPlan: Continue current medications and sliding scale coverage (6) Peripheral neuropathy Qualifiers: Peripheral neuropathy type: polyneuropathy, unspecified Qualified Code(s): G62.9 - Polyneuropathy, unspecified Is this a current diagnosis for this admission?: YesPlan: Continue neurolyptics (7) Depression Qualifiers: Depression Type: unspecified Qualified Code(s): F32.9 - Major depressive disorder, single episode, unspecified Is this a current diagnosis for this admission?: YesPlan: Continue home medications (8) Hypertension Qualifiers: Hypertension type: essential hypertension Qualified Code(s): I10 - Essential (primary) hypertension Is this a current diagnosis for this admission?: YesPlan: Continue current medications. Patient is normotensive - Time Time Spent with patient: 25-34 minutes Critical Time spent with patient: 15-24 minutes Medications reviewed and adjusted accordingly: Yes Anticipated discharge: Home with Homehealth, SNF
--- NOTE | 2017-03-07 15:37 | Operative Report ---
Operative Report DATE OF SURGERY: 03/07/17 PREOPERATIVE DIAGNOSIS: Bilateral pressure ulcers of the heels POSTOPERATIVE DIAGNOSIS: Same OPERATION: Excisional debridement of skin and eschar from left heel and left ankle SURGEON: STEPHANIE LANE ANESTHESIA: Other - none TISSUE REMOVED OR ALTERED: skin COMPLICATIONS: None ESTIMATED BLOOD LOSS: scant INTRAOPERATIVE FINDINGS: See below PROCEDURE: Patient's feet were exposed. Exfoliative epithelium from the left heel sharply debrided with pickups and #11 blade. skin disposed of. Right heel has minimal amount of eschar, and recovering tissue.
[2017-03-07] MEDS: INSULIN LISPRO 100 UNIT/ML 3 ML VIAL SUBCUT PRN (17:50)
[2017-03-07] MEDS: DOXYCYCLINE HYCLATE 100 MG TABLET PO SCH (22:27)
[2017-03-08] MEDS: HEPARIN SOD (PORCINE) 5,000 UNIT/ML 1 ML SYRINGE SUBCUT SCH ×3 (06:31→21:50)
[2017-03-08] MEDS: GABAPENTIN 300 MG CAPSULE PO SCH ×3 (06:31→21:50)
[2017-03-08] MEDS: DOCUSATE SODIUM 100 MG CAPSULE PO SCH ×2 (11:01→17:36)
[2017-03-08] MEDS: TAMSULOSIN HCL 0.4 MG CAP.SR.24H PO SCH (11:02)
[2017-03-08] MEDS: DOXYCYCLINE HYCLATE 100 MG TABLET PO SCH ×2 (11:02→21:50)
[2017-03-08] MEDS: AMLODIPINE BESYLATE 10 MG TABLET PO SCH (11:02)
[2017-03-08] MEDS: DULOXETINE HCL 30 MG CAPSULE.DR PO SCH ×2 (11:03→17:36)
[2017-03-08] MEDS: LACTULOSE SYRUP 20 GM/30 ML UDCUP PO SCH (11:18)
[2017-03-08] MEDS: INSULIN LISPRO 100 UNIT/ML 3 ML VIAL SUBCUT PRN (14:13)
--- NOTE | 2017-03-08 15:21 | PDOC PROGRESS REPORT ---
Subjective Progress Note for:: 03/08/17 Subjective:: The patient was seen earlier today on rounds. The patient denies any nausea, vomiting, diarrhea, shortness of breath, dizziness, chest pain, heart palpitations, fevers, or chills. The patient has remained afebrile. Blood pressures have been in a good range. When prompted the patient voices no other concerns at this time. Patient admits to discomfort of the lower extremity but denies pain. Review of systems: The rest of the review of systems is negative. Physical Exam Vital Signs: Temp Pulse Resp BP Pulse Ox 97.4 F 69 20 150/58 H 96 03/08/17 07:12 03/08/17 07:12 03/08/17 07:12 03/08/17 07:12 03/08/17 07:12 Intake & Output 03/06/17 03/07/17 03/08/17 23:59 23:59 23:59 Intake Total 1840 1347 400 Balance 1840 1347 400 Weight 109.3 kg 105.7 kg General appearance: PRESENT: no acute distress, obese, well-developed, well- nourished Head exam: PRESENT: atraumatic, normocephalic Eye exam: PRESENT: conjunctiva pink, EOMI, PERRLA. ABSENT: scleral icterus Ear exam: PRESENT: normal external ear exam Mouth exam: PRESENT: moist, tongue midline Neck exam: ABSENT: carotid bruit, JVD, lymphadenopathy, thyromegaly Respiratory exam: PRESENT: clear to auscultation melvin. ABSENT: rales, rhonchi, wheezes Cardiovascular exam: PRESENT: RRR. ABSENT: diastolic murmur, rubs, systolic murmur Pulses: PRESENT: normal dorsalis pedis pul Vascular exam: PRESENT: normal capillary refill GI/Abdominal exam: PRESENT: normal bowel sounds, soft. ABSENT: distended, guarding, mass, organolmegaly, rebound, tenderness Rectal exam: PRESENT: deferred Extremities exam: PRESENT: full ROM. ABSENT: calf tenderness, clubbing, pedal edema Musculoskeletal exam: PRESENT: full ROM, tenderness Neurological exam: PRESENT: alert, awake, oriented to person, oriented to place , oriented to time, oriented to situation, CN II-XII grossly intact. ABSENT: motor sensory deficit Psychiatric exam: PRESENT: appropriate affect, normal mood. ABSENT: homicidal ideation, suicidal ideation Skin exam: PRESENT: other - Bilateral open heel wounds. Left with darkened eschar in the center, right appears pink and granulating. Results Laboratory Results: 03/06/17 05:51 03/06/17 10:50 Impressions: Foot X-Ray 03/03/17 18:36 IMPRESSION: No acute osseous finding. Assessment & Plan - Diagnosis (1) Cellulitis of both lower extremities Is this a current diagnosis for this admission?: YesPlan: Have transitioned oral antibiotics. The patient will need follow-up in the wound care center. The patient has refused any form of stenting or angioplasty to the left occluded femoral artery. (2) PAD (peripheral artery disease) Is this a current diagnosis for this admission?: YesPlan: Patient had FALGUNI's which show left femoral arterial occlusion. Dr Maguire spoke with patient about angioplasty and stenting. Patient states he wants no further procedures or surgery at his age. His aware that this will interfere with wound healing on the left foot (3) BPH (benign prostatic hyperplasia) Qualifiers: Prostatic enlargement morphology: unspecified morphology Lower urinary tract symptom presence: presence of symptoms unspecified Qualified Code(s ): N40.0 - Benign prostatic hyperplasia without lower urinary tract symptoms Is this a current diagnosis for this admission?: YesPlan: Will continue home medications. (4) Constipation Qualifiers: Constipation type: unspecified constipation type Qualified Code(s): K59.00 - Constipation, unspecified Is this a current diagnosis for this admission?: Yes (5) Depression Qualifiers: Depression Type: unspecified Qualified Code(s): F32.9 - Major depressive disorder, single episode, unspecified Is this a current diagnosis for this admission?: Yes (6) Hypertension Qualifiers: Hypertension type: essential hypertension Qualified Code(s): I10 - Essential (primary) hypertension Is this a current diagnosis for this admission?: YesPlan: Will continue home medications. (7) Peripheral neuropathy Qualifiers: Peripheral neuropathy type: polyneuropathy, unspecified Qualified Code(s): G62.9 - Polyneuropathy, unspecified Is this a current diagnosis for this admission?: YesPlan: Continue neurolyptics (8) Diabetes mellitus type 2 in nonobese Is this a current diagnosis for this admission?: YesPlan: Will continue sliding-scale coverage (9) Ankylosing spondylitis of cervical region Is this a current diagnosis for this admission?: Yes - Time Time Spent with patient: 25-34 minutes Medications reviewed and adjusted accordingly: Yes Anticipated discharge: Other Within: within 24 hours Disposition: The patient is a DO NOT RESUSCITATE DO NOT INTUBATE. Pending patient's symptomatology and diagnostic findings will reevaluate as needed.
[2017-03-08] MEDS: OXYCODONE HCL IR 5 MG TABLET PO PRN (21:50)
[2017-03-08] MEDS: ALPRAZOLAM 0.5 MG TABLET PO PRN (21:50)
[2017-03-09] MEDS: GABAPENTIN 300 MG CAPSULE PO SCH ×3 (06:00→23:19)
[2017-03-09] MEDS: HEPARIN SOD (PORCINE) 5,000 UNIT/ML 1 ML SYRINGE SUBCUT SCH ×3 (06:00→23:20)
[2017-03-09] MEDS: DULOXETINE HCL 30 MG CAPSULE.DR PO SCH ×2 (10:00→18:00)
[2017-03-09] MEDS: DOCUSATE SODIUM 100 MG CAPSULE PO SCH ×2 (10:00→18:00)
[2017-03-09] MEDS: AMLODIPINE BESYLATE 10 MG TABLET PO SCH (10:00)
[2017-03-09] MEDS: LACTULOSE SYRUP 20 GM/30 ML UDCUP PO SCH (10:00)
[2017-03-09] MEDS ORDERED: POTASSIUM CHLORIDE 10 MEQ TABLET.SA PO ONE (13:20)
[2017-03-09] MEDS ORDERED: OXYCODONE HCL IR 5 MG TABLET ONE (17:19)
[2017-03-09] MEDS: TAMSULOSIN HCL 0.4 MG CAP.SR.24H PO SCH (18:43)
--- NOTE | 2017-03-09 22:33 | OPERATIVE REPORT E ---
Operative Report NAME: LIBERTY TIRADO : 1925 AGE: 89Y DATE OF SURGERY: 03/07/2017 ROOM: 536 ADDENDUM: PROCEDURE: An excisional debridement of devitalized skin, approximately 2 x 4 cm from the left heel, and 1 x 3 cm from the right heel. Skin was removed, hat is the epithelium, with #11 blade. Depth of debridement was to the deep dermis and viable deep dermis. The exfoliating skin was removed and the underlying eschar and granulation tissue smoothed and left in place. DICTATING PHYSICIAN: STEPHANIE LANE M.D. [id number] PHY#: [id number] ID: [id number] JOB#: [id number] ACCT: [id number] cc:STEPHANIE LANE M.D. >
[2017-03-09] MEDS: OXYCODONE HCL IR 5 MG TABLET PO SCH (23:20)
[2017-03-09] MEDS: DOXYCYCLINE HYCLATE 100 MG TABLET PO SCH (23:20)
--- NOTE | 2017-03-09 23:31 | PROGRESS NOTE E ---
Progress Note NAME: LIBERTY TIRADO : 1925 AGE: 89Y DATE: 03/09/2017 ROOM: 536 SUBJECTIVE: The patient is currently lying in bed. He states that he feels well today other than an increasing pain of the right lower extremity. The patient denies any nausea, vomiting. No diarrhea, shortness of breath, dizziness, chest pain. No fevers, chills. Patient has been afebrile. Blood pressure has been in a good range. Patient does not voice any other concerns at this time. REVIEW OF SYSTEMS: Show review of systems negative. MEDICATIONS: Medications have been reviewed. OBJECTIVE: GENERAL: The patient is a pleasant 89-year-old male who is awake, alert, and oriented to person place, time, and situation. He is verbal and conversational. Does not appear to be in any acute distress. VITAL SIGNS: As follows: Temperature is 97.9, pulse 70, respirations 18, blood pressure 150/70. Oxygen saturation is 94% on room air. SKIN: Warm and dry. No rash. Not diaphoretic. HEENT: Pupils equal, round, and reactive to light and accommodation. Conjunctivae pink. There is no JVD. CARDIOVASCULAR: Heart is regular; there is no murmur or rub. CHEST: Is clear, symmetrical, unlabored. ABDOMEN: Soft. Nontender. Nondistended. BACK: No CVA tenderness or sacral edema. EXTREMITIES: No clubbing, cyanosis, edema. Area of cellulitis is much improved bilaterally in comparison to yesterday with trace pedal pulses. PSYCHIATRIC: Appropriate affect. Pleasant mood. DIAGNOSTICS: Lab values are as follows: Chemistry obtained on 03/09/2017: Sodium 143, potassium 4.0, chloride 107, carbon dioxide 25, BUN 17, creatinine is 0.7, glucose 130, calcium is 9.13, magnesium is 2.3. IMPRESSION AND PLAN: 1. CELLULITIS OF LOWER EXTREMITIES. I will continue current antibiotic coverage. The patient visually appears much improved but pain has increased. Will schedule pain medicine for now and reevaluate in the a.m. 2. FOOT ULCERATION. Do appreciate surgicalist's input on this. Will continue current course. 3. DIABETES MELLITUS, TYPE 2. Will continue current coverage as well as sliding scale. 4. HYPERTENSION. PATIENT'S BLOOD PRESSURE HAS BEEN IN A GOOD RANGE. Will continue current medications. DISPOSITION: The patient is DO NOT RESUSCITATE, DO NOT INTUBATE. Pending patient's symptomatology and diagnostic findings, will reevaluate in the a.m. for possible discharge. TIME SPENT ON THIS FOLLOWUP: Including assessment and plan, physical examination, patient education is 25 minutes. DICTATING PHYSICIAN: ORACIO KWAN NP [id number] PHY#: [id number] ID: [id number] JOB#: [id number] ACCT: [id number] cc: > MTDD
[2017-03-09] MEDS: INSULIN LISPRO 100 UNIT/ML 3 ML VIAL SUBCUT PRN (23:40)
[2017-03-10] MEDS: HEPARIN SOD (PORCINE) 5,000 UNIT/ML 1 ML SYRINGE SUBCUT SCH ×2 (07:37→13:48)
[2017-03-10] MEDS: GABAPENTIN 300 MG CAPSULE PO SCH ×2 (07:37→13:48)
[2017-03-10] MEDS: OXYCODONE HCL IR 5 MG TABLET PO SCH ×2 (07:38→11:46)
[2017-03-10 09:01] LABS: HEMATOCRIT 35.5 % (37.9-51.0); HEMOGLOBIN 11.6 g/dL (13.5-17.0); HGB HCT DIFFERENCE -0.7; MEAN CORPUSCULAR HEMOGLOBIN 26.7 pg (27.0-33.4); MEAN CORPUSCULAR HGB CONC 32.5 g/dL (32.0-36.0); MEAN CORPUSCULAR VOLUME 82 fl (80-97); RED BLOOD COUNT 4.34 10^6/uL (4.35-5.55); WHITE BLOOD COUNT 8.1 10^3/uL (4.0-10.5)
[2017-03-10] MEDS: DOCUSATE SODIUM 100 MG CAPSULE PO SCH ×2 (10:04→17:21)
[2017-03-10] MEDS: LACTULOSE SYRUP 20 GM/30 ML UDCUP PO SCH (10:04)
[2017-03-10] MEDS: DULOXETINE HCL 30 MG CAPSULE.DR PO SCH ×2 (10:05→17:20)
[2017-03-10] MEDS: DOXYCYCLINE HYCLATE 100 MG TABLET PO SCH (10:05)
[2017-03-10] MEDS: TAMSULOSIN HCL 0.4 MG CAP.SR.24H PO SCH (10:05)
[2017-03-10] MEDS: AMLODIPINE BESYLATE 10 MG TABLET PO SCH (10:05)
--- NOTE | 2017-03-10 12:53 | TRANSFER SUMMARY E ---
Transfer Summary NAME: LIBERTY TIRADO : 1925 AGE: 89Y ADMITTED: 03/03/2017 TRANSFERRED: 03/10/2017 CODE STATUS: DO NOT RESUSCITATE/DO NOT INTUBATE. PRIMARY CARE PROVIDER: Jose Guo MD TRANSFER DIAGNOSES: Include: 1. Cellulitis of bilateral lower extremities. 2. Peripheral artery disease. 3. Benign prostatic hyperplasia. 4. Diabetic foot ulcerations. 5. Constipation. 6. Depression. 7. Hypertension. 8. Peripheral neuropathy. 9. Diabetes mellitus type 2 and not obese. 10. Ankylosing spondylitis of the cervical region. DISCHARGE MEDICATIONS: Include: 1. Doxycycline 100 mg p.o. b.i.d., #20 tablets with no refills. 2. Flomax 0.4 mg p.o. daily. 3. Amlodipine 10 mg p.o. daily. 4. Xanax 0.5 mg p.o. b.i.d. p.r.n. 5. Cymbalta 60 mg p.o. b.i.d. 6. Neurontin 600 mg p.o. every 8 hours. 7. Oxycodone 5 mg p.o. every 6 hours p.r.n. 8. Dulcolax 10 mg per rectal daily p.r.n. 9. Colace 100 mg p.o. b.i.d. 10. Metformin 500 mg p.o. b.i.d. DIET: Diabetic. ACTIVITY: As per rehab standards. HISTORY OF PRESENT ILLNESS: The patient is an 89-year-old male with a past medical history of very well controlled diabetes mellitus type 2 and ankylosing spondylitis. The patient presented to the emergency department due to heel ulcerations. The patient had been in his usual state of health until approximately 3 days prior to presentation when he noted erythema and pain to his heels bilaterally as well as localized erythema to his foot and subjective fevers, chills prompting him to seek evaluation. The patient was found to have leukocytosis, a febrile state with 3 x 3 ulcers on his heels bilaterally which the patient does associate with some immobility. The patient also had some evidence of bilateral lower extremity cellulitis and was referred to the hospitalists for admission and management. HOSPITAL COURSE: The patient was admitted to continuous telemetry unit. The patient was seen and evaluated by the surgicalist. The patient underwent arterial Dopplers and findings were consistent with severe hemodynamically significant lesions of the bilateral lower extremities. The patient did undergo bedside debridement with Dr. Zheng and the patient's areas of cellulitis improved significantly. The patient has continued with localized wound care and blood sugars were very well managed. The patient is ready for discharge. DIAGNOSTICS: 1. Lab values are as follows: a. Hematology obtained on 03/09/2017: WBCs are 8.1, hemoglobin 11.6, hematocrit 35.5, platelet count 293,000. b. Coagulation obtained on 03/10/2017: PT is 12.9, INR is 0.94. c. Chemistry obtained on 03/09/2017: Sodium 139, potassium 3.6, chloride 103, carbon dioxide 25, BUN 15, creatinine 0.85, glucose 447, calcium 8.9. d. Microbiology obtained on 03/03/2017 revealed blood cultures with no growth. 2. Foot x-ray obtained on 03/03/2017 reveals no acute osseus findings. 3. Lower extremity ultrasound obtained on 03/04/2017 revealed severe hemodynamically significant lesions of bilateral lower extremities. PHYSICAL EXAMINATION: GENERAL: The patient is a well-developed, reasonably nourished, 89-year-old male who is awake, alert, and oriented to person, place, time and situation. He is verbal, conversational, does not appear to be in acute distress. VITAL SIGNS: As follows: Temperature is 97.7, pulse 75, respirations 18, blood pressure 153/68, oxygen saturation is 96% on room air. SKIN: Warm and dry. No rash. Not diaphoretic. HEENT: Pupils equal, round and reactive to light and accommodation. Conjunctivae pink. There is no elevated JVP. CARDIOVASCULAR: Heart is regular without murmur or rub. CHEST: Clear, symmetrical and unlabored. ABDOMEN: Soft, nontender and nondistended. BACK: No CVA tenderness or sacral edema. EXTREMITIES: Without clubbing, cyanosis, or edema. The patient's bilateral ulcers are much improved. The areas are covered. The areas of cellulitis and redness have receded. PSYCHIATRIC: Appropriate affect, pleasant mood. DISCHARGE PLANNING: The patient will need to follow up with Dr. [facility] for management and to follow peripheral arterial disease. TIME SPENT: Time spent on this discharge including assessment, plan, physical examination, patient education and resource alignment was 40 minutes. DICTATING PHYSICIAN: ORACIO KWAN NP [id number] PHY#: [id number] ID: [id number] JOB#: [id number] ACCT: [id number] cc:ORACIO KWAN NP >
[2017-03-10 13:50] LABS: ANION GAP 10 (5-19); BLOOD UREA NITROGEN 17 mg/dL (7-20); CALCIUM 9.1 mg/dL (8.4-10.2); CARBON DIOXIDE 25 mmol/L (22-30); CHLORIDE 108 mmol/L (98-107); CREATININE RESULT 0.71 mg/dL (0.52-1.25); GLUCOSE 131 mg/dL (75-110); MAGNESIUM 2.3 mg/dL (1.6-2.3); POTASSIUM 3.4 mmol/L (3.6-5.0); SODIUM 143.2 mmol/L (137-145)
[2017-03-10] MEDS ORDERED: METFORMIN HCL 500 MG TABLET PO SCH (16:00)
[2017-03-10 16:34] VITALS: BP 147/65
[2017-03-10] MEDS ORDERED: OXYCODONE HCL IR 5 MG TABLET PO PRN (18:00)
== END 2017-03-10 19:51 | disposition home health service (06) | DRG 623 ==
LOC: ER 15:28 → UNDOADMIN 22:08 → EH 22:08 → 5 23:35 → EH 23:35 → 5 03-08 15:18
PROVIDERS: ADMIT Internal Medicine; ATTEND Internal Medicine
PROC: 3E0F73Z Introduction of Anti-inflammatory into Respiratory Tract, Via Natural or Artificial Opening (ICD-10-PCS; 2017-03-04)
PROC: 0HBNXZZ Excision of Left Foot Skin, External Approach (ICD-10-PCS; principal; 2017-03-07)
PROC: 0HBMXZZ Excision of Right Foot Skin, External Approach (ICD-10-PCS; 2017-03-07)
DX: E11.621 Type 2 diabetes mellitus with foot ulcer (principal); L97.429 Non-pressure chronic ulcer of left heel and midfoot with unspecified severity; L97.419 Non-pressure chronic ulcer of right heel and midfoot with unspecified severity; L03.116 Cellulitis of left lower limb; L03.115 Cellulitis of right lower limb; E11.628 Type 2 diabetes mellitus with other skin complications; E11.51 Type 2 diabetes mellitus with diabetic peripheral angiopathy without gangrene; E11.42 Type 2 diabetes mellitus with diabetic polyneuropathy; N40.0 Benign prostatic hyperplasia without lower urinary tract symptoms; K59.00 Constipation, unspecified; F32.9 Major depressive disorder, single episode, unspecified; I10 Essential (primary) hypertension; M45.2 Ankylosing spondylitis of cervical region; M19.90 Unspecified osteoarthritis, unspecified site; E11.8 Type 2 diabetes mellitus with unspecified complications; R26.9 Unspecified abnormalities of gait and mobility; M54.9 Dorsalgia, unspecified; Z53.20 Procedure and treatment not carried out because of patient's decision for unspecified reasons; Z79.4 Long term (current) use of insulin; Z60.2 Problems related to living alone; Z79.899 Other long term (current) drug therapy; Z91.81 History of falling; Z90.49 Acquired absence of other specified parts of digestive tract; Z96.651 Presence of right artificial knee joint; Z87.891 Personal history of nicotine dependence; Z82.61 Family history of arthritis; Z82.49 Family history of ischemic heart disease and other diseases of the circulatory system
CPT/HCPCS: 36415; 80048; 80053; 80202; 82565; 82962; 83036; 83735; 85025; 85027; 87040; 93925; 96365; 96375; 99284; G8978-GP; G8979-GP; J1644; J1815; J2543; J3370; J3490; J7030; J7060

== ENCOUNTER 2017-03-21 15:53 | Emergency (ER) | payer MEDICARE ==
[2017-03-21] MEDS ORDERED: HYDROCODONE/ACETAMINOPHEN 5-325 MG TABLET PO ONE (18:28)
--- NOTE | 2017-03-21 18:30 | ER Document Report ---
ED Medical Screen (RME) - General Chief Complaint: Wound Infection Stated Complaint: FOOT PAIN Time Seen by Provider: 03/21/17 18:25 Mode of Arrival: Wheelchair Information source: Patient, [facility] Records Notes: 89-year-old male with a past medical history of diabetes, ankylosing spondylitis, BPH, hypertension, depression, neuropathy presents with increasing pain and redness to L ankle. Pt admitted for diabetic foot ulcer and cellulitis 03/03 - 03/08. Pt found to have L femoral occlusive vascular disease, but records indicate that pateint did want stenting or vascular surgical procedure. However, pateint tells me that he has an appointment with a vascular surgeon in [place] on Tuesday to discuss possible vascular surgery. He denies fevers. He is a poor historian and has no family present at this time. I have greeted and performed a rapid initial assessment of this patient. A comprehensive ED assessment and evaluation of the patient, analysis of test results and completion of the medical decision making process will be conducted by additional ED providers. TRAVEL OUTSIDE OF THE [place] IN LAST 30 DAYS: No - Related Data Allergies/Adverse Reactions: No Known Allergies Allergy (Verified 03/03/17 15:47) Past Medical History - Past Medical History Cardiac Medical History: Reports: Hx Hypertension Endocrine Medical History: Reports: Hx Diabetes Mellitus Type 2 Renal/ Medical History: Reports: Hx Benign Prostatic Hyperplasia. Denies: Hx Peritoneal Dialysis Musculoskeltal Medical History: Reports Hx Arthritis Psychiatric Medical History: Reports: Hx Depression Past Surgical History: Reports: Hx Cholecystectomy, Hx Orthopedic Surgery - right knee replacement - Immunizations Hx Diphtheria, Pertussis, Tetanus Vaccination: No Physical Exam - Vital signs Vitals: Temp Pulse Resp BP Pulse Ox 98.1 F 101 H 18 100/57 L 99 03/21/17 16:06 03/21/17 16:06 03/21/17 16:06 03/21/17 16:06 03/21/17 16:06 - General Notes: Frail elderly male who is alert and conversant and in no acute distress - Respiratory Respiratory status: No respiratory distress Breath sounds: Normal. No: Rales, Rhonchi, Wheezing - Cardiovascular Rhythm: Regular Heart sounds: Normal auscultation, S1 appreciated, S2 appreciated - Extremities Notes: Left heal ulcer ulcerative lesion anterior L ankle with prurulent discharge, with surrounding warm and erythema. Cap refill less than 3 seconds. Foot is warm. Course - Vital Signs Vital signs: Temp Pulse Resp BP Pulse Ox 98.1 F 101 H 18 100/57 L 99 03/21/17 16:06 03/21/17 16:06 03/21/17 16:06 03/21/17 16:06 03/21/17 16:06
[2017-03-21 19:00] LABS: ABSOLUTE EOSINOPHILS # (AUTO) 0.1 10^3/uL (0.0-0.6); ABSOLUTE LYMPHOCYTES (AUTO) 2.3 10^3/uL (0.5-4.7); ABSOLUTE MONOCYTES (AUTO) 1.1 10^3/uL (0.1-1.4); ABSOLUTE NEUT (AUTO) 8.3 10^3/uL (1.7-8.2); BASOPHILS % (AUTO) 0.2 % (0-2); HEMATOCRIT 39.5 % (37.9-51.0); HEMOGLOBIN 12.9 g/dL (13.5-17.0); HGB HCT DIFFERENCE -0.8; LYMPHOCYTES % (AUTO) 19.1 % (13-45); MEAN CORPUSCULAR HEMOGLOBIN 26.9 pg (27.0-33.4); MEAN CORPUSCULAR HGB CONC 32.7 g/dL (32.0-36.0); MEAN CORPUSCULAR VOLUME 82 fl (80-97); MONOCYTES % (AUTO) 9.2 % (3-13); RED CELL DISTRIBUTION WIDTH 15.3 % (11.5-14.0); SEGMENTED NEUTROPHILS % (AUTO) 70.5 % (42-78); WHITE BLOOD COUNT 11.8 10^3/uL (4.0-10.5)
[2017-03-21 19:20] LABS: ALANINE AMINOTRANSFERASE 29 U/L (21-72); ALBUMIN 4.1 g/dL (3.5-5.0); ALKALINE PHOSPHATASE 91 U/L (38-126); ANION GAP 12 (5-19); ASPARTATE AMINO TRANSFERASE 22 U/L (17-59); BILIRUBIN,DIRECT 0.3 mg/dL (0.0-0.4); BILIRUBIN,TOTAL 0.6 mg/dL (0.2-1.3); BLOOD UREA NITROGEN 25 mg/dL (7-20); C-REACTIVE PROTEIN 20.5 mg/L (<10.0); CALCIUM 9.8 mg/dL (8.4-10.2); CARBON DIOXIDE 26 mmol/L (22-30); CHLORIDE 104 mmol/L (98-107); CREATININE RESULT 0.96 mg/dL (0.52-1.25); GLUCOSE 120 mg/dL (75-110); POTASSIUM 4.6 mmol/L (3.6-5.0); SODIUM 142.3 mmol/L (137-145); TOTAL PROTEIN 7.4 g/dL (6.3-8.2)
[2017-03-21 19:38] LABS: ERYTHROCYTE SEDIMENTATION RATE 28 mm/hr (0-20)
--- NOTE | 2017-03-21 19:59 | ER Document Report ---
ED General - General Chief Complaint: Wound Infection Stated Complaint: FOOT PAIN Time Seen by Provider: 03/21/17 18:25 Mode of Arrival: Wheelchair Information source: Patient, [facility] Records Notes: 89-year-old male history of diabetes with heel ulcerations presents with complaints of continued heel ulceration. Patient was recently discharged from the hospital denies any fevers or chills nausea vomiting or diarrhea patient was sent home on antibiotics. Patient was concerned that the area was not healing TRAVEL OUTSIDE OF THE [place] IN LAST 30 DAYS: No - HPI Onset: Other Onset/Duration: Persistent Quality of pain: No pain Severity: Mild Pain Level: Denies Associated symptoms: Other Exacerbated by: Denies Relieved by: Denies Similar symptoms previously: Yes Recently seen / treated by doctor: Yes - Related Data Allergies/Adverse Reactions: No Known Allergies Allergy (Verified 03/03/17 15:47) Past Medical History - General Information source: Patient, [facility] Records - Social History Smoking Status: Never Smoker Cigarette use (# per day): No Chew tobacco use (# tins/day): No Smoking Education Provided: No Family History: Arthritis, Hypertension - Past Medical History Cardiac Medical History: Reports: Hx Hypertension Endocrine Medical History: Reports: Hx Diabetes Mellitus Type 2 Renal/ Medical History: Reports: Hx Benign Prostatic Hyperplasia. Denies: Hx Peritoneal Dialysis Musculoskeltal Medical History: Reports Hx Arthritis Psychiatric Medical History: Reports: Hx Depression Past Surgical History: Reports: Hx Cholecystectomy, Hx Orthopedic Surgery - right knee replacement - Immunizations Hx Diphtheria, Pertussis, Tetanus Vaccination: No Hx Pneumococcal Vaccination: 07/02/09 Review of Systems - Review of Systems Notes: PHYSICAL EXAMINATION: GENERAL: Well-appearing, well-nourished and in no acute distress. HEAD: Atraumatic, normocephalic. EYES: Pupils equal round and reactive to light, extraocular movements intact, sclera anicteric, conjunctiva are normal. ENT: Nares patent, oropharynx clear without exudates. Moist mucous membranes. NECK: Normal range of motion, supple without lymphadenopathy LUNGS: Breath sounds clear to auscultation bilaterally and equal. No wheezes rales or rhonchi. HEART: Regular rate and rhythm without murmurs ABDOMEN: Soft, nontender, nondistended abdomen. No guarding, no rebound. No masses appreciated. Musculoskeletal: Normal range of motion, no pitting or edema. No cyanosis. NEUROLOGICAL: Cranial nerves grossly intact. Normal speech, normal gait. Normal sensory, motor exams PSYCH: Normal mood, normal affect. SKIN: left low vital ulcer healing, bilateral heel ulcers healing no active infectious process noted Physical Exam - Vital signs Vitals: Temp Pulse Resp BP Pulse Ox 98.1 F 101 H 18 100/57 L 99 03/21/17 16:06 03/21/17 16:06 03/21/17 16:06 03/21/17 16:06 03/21/17 16:06 Course - Re-evaluation Re-evalutation: 03/21/17 19:59 Surgeon has been consulted for patient's wound 03/21/17 20:13 pt was evaluated by Dr Saucedo, he scrapped the area , notes no further intervention and does not need to be admitted for this wound care 03/21/17 21:43 Area was dressed patient will be discharged to follow-up with wound care After performing a Medical Screening Examination, I estimate there is LOW risk for OPEN FRACTURE, COMPARTMENT SYNDROME, TENDON RUPTURE, ACUTE NEUROVASCULAR INJURY, or RETAINED FOREIGN BODY, thus I consider the discharge disposition reasonable. Also, there is no evidence or peritonitis, sepsis, or toxicity. I have reevaluated this patient multiple times and no significant life threatening changes are noted. The patient and I have discussed the diagnosis and risks, and we agree with discharging home with close follow-up with the understanding that symptoms and presentations can change. We also discussed returning to the Emergency Department immediately if new or worsening symptoms occur. We have discussed the symptoms which are most concerning (e.g., changing or worsening pain, fever, numbness, weakness, cool or painful digits) that necessitate immediate return. - Vital Signs Vital signs: Temp Pulse Resp BP Pulse Ox 98.1 F 101 H 18 100/57 L 99 03/21/17 16:06 03/21/17 16:06 03/21/17 16:06 03/21/17 16:06 03/21/17 16:06 - Laboratory Result Diagrams: 03/21/17 18:45 03/21/17 18:45 Laboratory results interpreted by me: 03/21/17 03/21/17 18:45 18:45 WBC 11.8 H Hgb 12.9 L MCH 26.9 L RDW 15.3 H Absolute Neutrophils 8.3 H ESR 28 H BUN 25 H Glucose 120 H C-Reactive Protein 20.5 H Discharge - Discharge Clinical Impression: Diabetes mellitus type 2 in nonobese Heel ulcer due to DM Qualifiers: Diabetes mellitus type: type 2 Laterality: left Non-pressure ulcer stage: limited to breakdown of skin Qualified Code(s): E11.621 - Type 2 diabetes mellitus with foot ulcer; 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
--- NOTE | 2017-03-21 20:48 | OPERATIVE REPORT E ---
Operative Report NAME: LIBERTY TIRADO : 1925 AGE: 89Y DATE OF SURGERY: 03/21/2017 ROOM: BRIEF HISTORY: The patient came to Emergency Room with history of pain, and the Emergency Room physician called me to examine his left foot and heel where there is a pressure ulcer with a small necrotic area. Basically, the gentleman has diabetic neuropathy and these pressure ulcers. OPERATION: Extensive debridement of the pressure ulcer on the left heel and also on left ankle area, each one about a centimeter. INDICATIONS: Slough necrotic tissue in the heel of the left side and also ankle of the left foot and left leg. Procedure was explained to the patient. SURGEON: JOCELIN MARTINEZ M.D. PROCEDURE: After cleaning and draping the area, with sharp scissors, excisional sharp debridement of the necrotic tissue performed up to the subcutaneous level. The patient tolerated the procedure very well. He will just need wound care and diabetes management. DICTATING PHYSICIAN: JOCELIN MARTINEZ M.D. [id number] PHY#: [id number] ID: [id number] JOB#: [id number] ACCT: [id number] cc:JOCELIN MARTINEZ M.D. >
[2017-03-21 22:31] VITALS: BP 132/62
== END 2017-03-21 22:31 | disposition home or self-care (01) ==
LOC: ER 15:53
DX: E11.621 Type 2 diabetes mellitus with foot ulcer (principal); L97.421 Non-pressure chronic ulcer of left heel and midfoot limited to breakdown of skin; M79.673 Pain in unspecified foot
CPT/HCPCS: 99285; 36415; 87040; 85025; 85652; 86140; 80053; A9270

== ENCOUNTER → 2017-05-04 | Outpatient (CLI) | payer MEDICARE ==
[2017-05-04 14:45] LABS: ABSOLUTE EOSINOPHILS # (AUTO) 0.1 10^3/uL (0.0-0.6); ABSOLUTE LYMPHOCYTES (AUTO) 2.1 10^3/uL (0.5-4.7); ABSOLUTE MONOCYTES (AUTO) 0.7 10^3/uL (0.1-1.4); ABSOLUTE NEUT (AUTO) 5.3 10^3/uL (1.7-8.2); BASOPHILS % (AUTO) 0.1 % (0-2); EOSINOPHILS % (AUTO) 1.5 % (0-6); HEMATOCRIT 33.6 % (37.9-51.0); HEMOGLOBIN 10.9 g/dL (13.5-17.0); HGB HCT DIFFERENCE -0.9; LYMPHOCYTES % (AUTO) 25.4 % (13-45); MEAN CORPUSCULAR HEMOGLOBIN 26.5 pg (27.0-33.4); MEAN CORPUSCULAR HGB CONC 32.5 g/dL (32.0-36.0); MEAN CORPUSCULAR VOLUME 82 fl (80-97); MONOCYTES % (AUTO) 8.6 % (3-13); RED BLOOD COUNT 4.11 10^6/uL (4.35-5.55); RED CELL DISTRIBUTION WIDTH 16.5 % (11.5-14.0); SEGMENTED NEUTROPHILS % (AUTO) 64.4 % (42-78); WHITE BLOOD COUNT 8.3 10^3/uL (4.0-10.5)
[2017-05-04 15:03] LABS: ALANINE AMINOTRANSFERASE 25 U/L (21-72); ALKALINE PHOSPHATASE 85 U/L (38-126); ANION GAP 12 (5-19); ASPARTATE AMINO TRANSFERASE 16 U/L (17-59); BILIRUBIN,DIRECT 0.2 mg/dL (0.0-0.4); BILIRUBIN,TOTAL 0.5 mg/dL (0.2-1.3); BLOOD UREA NITROGEN 21 mg/dL (7-20); CALCIUM 9.4 mg/dL (8.4-10.2); CARBON DIOXIDE 28 mmol/L (22-30); CHLORIDE 104 mmol/L (98-107); CREATININE RESULT 0.78 mg/dL (0.52-1.25); GLUCOSE 117 mg/dL (75-110); POTASSIUM 4.9 mmol/L (3.6-5.0); SODIUM 143.8 mmol/L (137-145); TOTAL PROTEIN 7.4 g/dL (6.3-8.2)
--- NOTE | 2017-05-04 15:16 | RADIOLOGY REPORT (SQ) ---
EXAM DESCRIPTION: ANKLE LEFT COMPLETE COMPLETED DATE/TIME: 05/04/2017 1:48 pm REASON FOR STUDY: CELLULITIS OF LEFT LOWER LIMB L03.116 CELLULITIS OF LEFT LOWER LIMB E11.9 TYPE 2 DIABETES MELLITUS WITHOUT COMPLICATIONS COMPARISON: None. NUMBER OF VIEWS: Three views. TECHNIQUE: AP, lateral, and oblique radiographic images acquired of the left ankle. LIMITATIONS: None. FINDINGS: MINERALIZATION: Normal. BONES: No fracture or dislocation. There is a small plantar calcaneal spur. JOINTS: No effusions. SOFT TISSUES: No soft tissue swelling. No foreign body. OTHER: No other significant finding. IMPRESSION: Plantar calcaneal spur with no acute osseous abnormality. TECHNICAL DOCUMENTATION: JOB ID: [id number] [employer]- All Rights Reserved
--- NOTE | 2017-05-04 15:17 | RADIOLOGY REPORT (SQ) ---
EXAM DESCRIPTION: FOOT LEFT COMPLETE COMPLETED DATE/TIME: 05/04/2017 1:48 pm REASON FOR STUDY: CELLULITIS OF LEFT LOWER LIMB L03.116 CELLULITIS OF LEFT LOWER LIMB E11.9 TYPE 2 DIABETES MELLITUS WITHOUT COMPLICATIONS COMPARISON: None. NUMBER OF VIEWS: Three views. TECHNIQUE: AP, lateral and oblique radiographic images acquired of the left foot. LIMITATIONS: None. FINDINGS: MINERALIZATION: Normal. BONES: No acute fracture or dislocation. There is a small plantar calcaneal spur. JOINTS: No effusions. SOFT TISSUES: No soft tissue swelling. No foreign body. OTHER: No other significant finding. IMPRESSION: Small calcaneal spur with no acute abnormality. TECHNICAL DOCUMENTATION: JOB ID: [id number] [employer]- All Rights Reserved
== END ==
LOC: OD 13:13
PROVIDERS: ATTEND Obstetrics & Gynecology
DX: L03.116 Cellulitis of left lower limb (principal); E11.9 Type 2 diabetes mellitus without complications; M77.32 Calcaneal spur, left foot
CPT/HCPCS: 36415; 80053; 85025

== ENCOUNTER 2017-06-09 16:29 | Emergency (ER) | payer MEDICARE ==
--- NOTE | 2017-06-09 17:25 | ER Document Report ---
HPI - HPI Onset/Duration: Gradual Exacerbated by: Other - swallowing Relieved by: denies: Denies Notes: Patient is an 89-year-old male who presents the ED complaining of a sore throat 3 days. Patient states that he is still able to eat and drink, but does have discomfort when he swallows. The pain does not radiate. Patient states that on occasion he will have some postnasal drip as well. He denies any drug allergies. Past medical history of diabetes. Denies any headache, fever, chest pain, palpitations, syncope, cough, shortness of breath, wheeze, dyspnea, abdominal pain, nausea/vomiting/diarrhea, urinary retention, dysuria, hematuria , or rash. - ROS Notes: REVIEW OF SYSTEMS: CONSTITUTIONAL : Denies fever, chills, or sweats. Denies recent illness. EENT: see hpi. denies eye, ear complaints. CARDIOVASCULAR: Denies chest pain. Denies palpitations or racing or irregular heart beat. Denies ankle edema. RESPIRATORY: Denies cough, cold, or chest congestion. Denies shortness of breath, difficulty breathing, or wheezing. GASTROINTESTINAL: Denies abdominal pain or distention. Denies nausea, vomiting , or diarrhea. Denies blood in vomitus, stools, or per rectum. Denies black, tarry stools. Denies constipation. GENITOURINARY: Denies difficulty urinating, painful urination, burning, frequency, blood in urine, or discharge. MUSCULOSKELETAL: Denies back or neck pain or stiffness. Denies joint pain or swelling. SKIN: Denies rash, lesions or sores. NEUROLOGICAL: Denies confusion or altered mental status. Denies passing out or loss of consciousness. Denies dizziness or lightheadedness. Denies headache. Denies weakness or paralysis or loss of use of either side. Denies problems with gait or speech. Denies sensory loss, numbness, or tingling. ALL OTHER SYSTEMS REVIEWED AND NEGATIVE. Dictation was performed using [employer] voice recognition software - CARDIOVASCULAR Cardiovascular: DENIES: Chest pain - REPRODUCTIVE Reproductive: DENIES: : Past Medical History - Social History Smoking Status: Never Smoker Chew tobacco use (# tins/day): No Frequency of alcohol use: None Drug Abuse: None Family History: Arthritis, Hypertension - Past Medical History Cardiac Medical History: Reports: Hx Hypertension Endocrine Medical History: Reports: Hx Diabetes Mellitus Type 2 Renal/ Medical History: Reports: Hx Benign Prostatic Hyperplasia. Denies: Hx Peritoneal Dialysis Musculoskeltal Medical History: Reports Hx Arthritis Psychiatric Medical History: Reports: Hx Depression Past Surgical History: Reports: Hx Cholecystectomy, Hx Orthopedic Surgery - right knee replacement - Immunizations Hx Diphtheria, Pertussis, Tetanus Vaccination: No Hx Pneumococcal Vaccination: 07/02/09 Vertical Provider Document - CONSTITUTIONAL Agree With Documented VS: Yes Notes: PHYSICAL EXAMINATION: GENERAL: Well-appearing, well-nourished and in no acute distress. HEAD: Atraumatic, normocephalic. EYES: Pupils equal round and reactive to light, extraocular movements intact, sclera anicteric, conjunctiva are normal. ENT: EAC clear b/l. TM's intact b/l without erythema, fluid, or perforation. Nares patent and without discharge. oropharynx mild erythema without exudates. No tonsilar hypertrophy. + mild erythema without exudate. Moist mucous membranes. No sinus tenderness. Uvula midline. No palatine shift. No tongue protrusion. NECK: Normal range of motion, supple without lymphadenopathy. No rigidity/ meningismus. LUNGS: Breath sounds clear to auscultation bilaterally and equal. No wheezes rales or rhonchi. HEART: Regular rate and rhythm without murmurs, rubs, gallops. ABDOMEN: Soft, nontender, nondistended abdomen. No guarding, no rebound. No masses appreciated. Normal bowel sounds present. No CVA tenderness bilaterally. Extremities: No cyanosis, clubbing, or edema b/l. Peripheral pulses 2+. Capillary refill less than 3 seconds. NEUROLOGICAL: Cranial nerves grossly intact. Normal speech. Normal sensory, motor exams PSYCH: Normal mood, normal affect. SKIN: Warm, Dry, normal turgor, no rashes or lesions noted. - INFECTION CONTROL TRAVEL OUTSIDE OF THE [place] IN LAST 30 DAYS: No Course - Re-evaluation Re-evalutation: 06/09/17 17:31 Patient is an afebrile, well-hydrated, 89-year-old male who presents the ED with acute strep pharyngitis. Rapid strep positive. Vitals are stable. PE otherwise unremarkable. I will cover him with Penicillin V 500mg PO BID x10 days. Low suspicion for any meningitis, sepsis, peritonsillar/pharyngeal abscess, respiratory compromise, Jorge's, temporal arteritis, or other emergent systemic condition at this time. Patient is aware this condition can change from initial presentation and he needs to monitor symptoms closely. Conservative measures otherwise for symptoms. Recheck with your PCM in 2-3 days. Return to the ED with any worsening/concerning symptoms otherwise as reviewed in discharge. Patient is in agreement. - Vital Signs Vital signs: Temp Pulse Resp BP Pulse Ox 16 06/09/17 16:38 Discharge - Discharge Clinical Impression: Strep pharyngitis Condition: Stable Disposition: HOME, SELF-CARE Instructions: Strep Throat ([facility]), Penicillin V K ([facility]) Additional Instructions: Maintain adequate fluid intake Take meds as directed May use mouthwash as needed/directed Salt water gargles, throat sprays, mouthwash rinse, peroxide gargles tylenol/ibuprofen as needed New toothbrush tomorrow evening over the counter cold medication as needed for symptoms F/u: with your PCM in 2-3 days for a recheck Consider consult with ENT for ongoing/worsening symptoms Return to the ED with any fever, worsening pain, chest pain, neck pain/stiffness , shortness of breath, cough, trouble swallowing/breathing, abdominal pain, n/v/ d, or worsening/concerning symptoms otherwise. Prescriptions: Nystatin/Dexameth/Diphen [Magic Mouthwash ([facility] Formula) Susp] 5 ml PO QID #120 ml Penicillin V Potassium [Penicillin Vk 500 mg Tablet] 500 mg PO BID #20 tablet Forms: Elevated Blood Pressure Referrals: ENT [Provider Group] - Follow up as needed
[2017-06-09] MEDS ORDERED: PENICILLIN V POTASSIUM 500 MG TABLET PO ONE (20:15)
[2017-06-09] MEDS ORDERED: ACETAMINOPHEN 325 MG TABLET PO ONE (20:15)
[2017-06-09 21:12] VITALS: BP 148/43
== END 2017-06-09 21:05 | disposition home or self-care (01) ==
LOC: ER 16:29
DX: J02.0 Streptococcal pharyngitis (principal); R09.82 Postnasal drip; E11.9 Type 2 diabetes mellitus without complications; I10 Essential (primary) hypertension
CPT/HCPCS: 99284; 87880; A9270 ×2

== ENCOUNTER 2017-06-20 09:42 | Emergency (ER) | payer MEDICARE ==
[2017-06-20] MEDS ORDERED: IPRATROPIUM/ALBUTEROL 0.5-2.5 MG/3 ML AMPUL NEB ONE (09:59)
--- NOTE | 2017-06-20 10:03 | ER Document Report ---
ED General - General Chief Complaint: Nonproductive Cough Stated Complaint: NECK,SHOULDER PAIN Time Seen by Provider: 06/20/17 09:51 Mode of Arrival: Medic Information source: Patient TRAVEL OUTSIDE OF THE [place] IN LAST 30 DAYS: No - HPI Onset: Last week Onset/Duration: Gradual Quality of pain: No pain Associated symptoms: Nonproductive cough, Sore throat Exacerbated by: Denies Relieved by: Denies Similar symptoms previously: Yes Notes: Patient is an 89-year-old male who lives at assisted living facility. He reports having a sore throat for the last few days for which she is taking penicillin. Patient reports cough times the last several days making it difficulty for him to sleep. He denies short of breath while awake. He is on oxygen at baseline. Denies any fevers. He is eating and drinking without difficulty. He is a rather poor historian however - Related Data Allergies/Adverse Reactions: No Known Allergies Allergy (Verified 03/03/17 15:47) Past Medical History - General Information source: [facility], [facility] - Social History Smoking Status: Unknown if Ever Smoked Family History: Arthritis, Hypertension - Past Medical History Cardiac Medical History: Reports: Hx Hypertension Endocrine Medical History: Reports: Hx Diabetes Mellitus Type 2 Renal/ Medical History: Reports: Hx Benign Prostatic Hyperplasia. Denies: Hx Peritoneal Dialysis Musculoskeltal Medical History: Reports Hx Arthritis Psychiatric Medical History: Reports: Hx Depression Past Surgical History: Reports: Hx Cholecystectomy, Hx Orthopedic Surgery - right knee replacement - Immunizations Hx Diphtheria, Pertussis, Tetanus Vaccination: No Hx Pneumococcal Vaccination: 07/02/09 Review of Systems - Review of Systems Constitutional: No symptoms reported EENT: Throat pain Cardiovascular: No symptoms reported Respiratory: Cough Gastrointestinal: No symptoms reported Skin: No symptoms reported Hematologic/Lymphatic: No symptoms reported Neurological/Psychological: No symptoms reported -: Yes All other systems reviewed and negative Physical Exam - Vital signs Vitals: Temp Pulse Resp BP Pulse Ox 99.1 F 85 20 127/63 H 93 06/20/17 09:48 06/20/17 09:48 06/20/17 09:48 06/20/17 09:48 06/20/17 09:48 Interpretation: Normal - General General appearance: Appears well, Alert - HEENT Head: Normocephalic, Atraumatic Eyes: Normal Pupils: PERRL Tympanic membrane: Normal Mouth/Lips: Normal Mucous membranes: Normal Pharynx: Normal Neck: Normal - Respiratory Respiratory status: No respiratory distress Chest status: Nontender Breath sounds: Rhonchi - Bilaterally Chest palpation: Normal - Cardiovascular Rhythm: Regular, Irregularly irregular Heart sounds: Normal auscultation - Abdominal Inspection: Normal Distension: No distension Bowel sounds: Normal Tenderness: Nontender - Back Back: Normal, Nontender - Extremities General upper extremity: Normal inspection, Nontender, Normal color, Normal ROM , Normal temperature General lower extremity: Normal inspection, Nontender, Normal color, Normal ROM , Normal temperature, Normal weight bearing. No: Nadia's sign - Neurological Neuro grossly intact: Yes Cognition: Normal Orientation: AAOx4 Cary Coma Scale Eye Opening: Spontaneous [place] Coma Scale Verbal: Oriented Henri Coma Scale Motor: Obeys Commands Henri Coma Scale Total: 15 Speech: Normal Motor strength normal: LUE, RUE, LLE, RLE Sensory: Normal - Skin Skin Temperature: Warm Skin Moisture: Dry Skin Color: Normal Course - Vital Signs Vital signs: Temp Pulse Resp BP Pulse Ox 99.1 F 85 20 127/63 H 93 06/20/17 09:48 06/20/17 09:48 06/20/17 09:48 06/20/17 09:48 06/20/17 09:48
[2017-06-20 10:16] LABS: ABSOLUTE BASOPHILS # (AUTO) 0.1 10^3/uL (0.0-0.2); ABSOLUTE LYMPHOCYTES (AUTO) 1.3 10^3/uL (0.5-4.7); ABSOLUTE MONOCYTES (AUTO) 1.5 10^3/uL (0.1-1.4); BASOPHILS % (AUTO) 0.5 % (0-2); EOSINOPHILS % (AUTO) 0.2 % (0-6); HEMATOCRIT 32.5 % (37.9-51.0); HEMOGLOBIN 10.6 g/dL (13.5-17.0); HGB HCT DIFFERENCE -0.7; LYMPHOCYTES % (AUTO) 6.9 % (13-45); MEAN CORPUSCULAR HEMOGLOBIN 26.8 pg (27.0-33.4); MEAN CORPUSCULAR HGB CONC 32.7 g/dL (32.0-36.0); MEAN CORPUSCULAR VOLUME 82 fl (80-97); MONOCYTES % (AUTO) 7.9 % (3-13); RED BLOOD COUNT 3.97 10^6/uL (4.35-5.55); RED CELL DISTRIBUTION WIDTH 17.3 % (11.5-14.0); SEGMENTED NEUTROPHILS % (AUTO) 84.5 % (42-78); WHITE BLOOD COUNT 18.9 10^3/uL (4.0-10.5)
[2017-06-20 10:39] LABS: ALANINE AMINOTRANSFERASE 24 U/L (21-72); ALBUMIN 3.7 g/dL (3.5-5.0); ALKALINE PHOSPHATASE 65 U/L (38-126); ANION GAP 10 (5-19); ASPARTATE AMINO TRANSFERASE 24 U/L (17-59); BILIRUBIN,DIRECT 0.4 mg/dL (0.0-0.4); BILIRUBIN,TOTAL 0.7 mg/dL (0.2-1.3); BLOOD UREA NITROGEN 20 mg/dL (7-20); CARBON DIOXIDE 25 mmol/L (22-30); CHLORIDE 104 mmol/L (98-107); CREATININE RESULT 0.86 mg/dL (0.52-1.25); GLUCOSE 169 mg/dL (75-110); POTASSIUM 3.8 mmol/L (3.6-5.0); SODIUM 139.4 mmol/L (137-145); TOTAL PROTEIN 6.9 g/dL (6.3-8.2)
[2017-06-20] MEDS ORDERED: PREDNISONE 20 MG TABLET PO ONE (10:50)
--- NOTE | 2017-06-20 11:17 | RADIOLOGY REPORT (SQ) ---
EXAM DESCRIPTION: CHEST SINGLE VIEW COMPLETED DATE/TIME: 06/20/2017 10:45 am REASON FOR STUDY: cough COMPARISON: 09/12/2013 EXAM PARAMETERS: NUMBER OF VIEWS: One view. TECHNIQUE: Single frontal radiographic view of the chest acquired. RADIATION DOSE: NA LIMITATIONS: None. FINDINGS: LUNGS AND PLEURA: No opacities, masses or pneumothorax. No pleural effusion. MEDIASTINUM AND HILAR STRUCTURES: No masses. Contour normal. HEART AND VASCULAR STRUCTURES: Heart normal in size. Normal vasculature. BONES: No acute findings. HARDWARE: None in the chest. OTHER: No other significant finding. IMPRESSION: NO ACUTE RADIOGRAPHIC FINDING IN THE CHEST. TECHNICAL DOCUMENTATION: JOB ID: [id number]
[2017-06-20 11:42] VITALS: BP 140/56
--- NOTE | 2017-06-20 12:02 | EKG REPORT ---
SEVERITY:- ABNORMAL ECG - SINUS RHYTHM FIRST DEGREE AV BLOCK : Confirmed by: Car Nicholson 20-Jun-2017 12:01:45
== END 2017-06-20 12:51 | disposition home health service (06) ==
LOC: ER 09:42
DX: J20.9 Acute bronchitis, unspecified (principal); J02.9 Acute pharyngitis, unspecified; R05 Cough; I10 Essential (primary) hypertension; E11.9 Type 2 diabetes mellitus without complications; Z99.81 Dependence on supplemental oxygen
CPT/HCPCS: 93005; 94640; 99284; 36415; 85025; 80053; 84484; 71010; 93010; A9270 ×2; J7512; J7620

== ENCOUNTER 2017-07-23 13:54 | Emergency (ER) | payer MEDICARE ==
--- NOTE | 2017-07-23 14:27 | ER Document Report ---
ED General - General Mode of Arrival: Medic Information source: Patient, Emergency Med Personnel TRAVEL OUTSIDE OF THE [place] IN LAST 30 DAYS: No - HPI Onset: Other - Refer to HPI notes <KEZIA WOOD - Last Filed: 07/23/17 15:35> <ALANA GONZALEZ - Last Filed: 07/23/17 18:41> - General Chief Complaint: Fall Stated Complaint: BODY PAIN Time Seen by Provider: 07/23/17 14:12 Notes: Patient is an 89-year-old male presenting to the emergency department after a fall last night. Patient contacted EMS after the fall and refused transport but then called him today due to pain all over. Patient states that he was discharged from [facility] yesterday and had an arrangement for a home health person to live with him since he frequently falls. Patient states that this person did not show up today. Patient denies any specific injury from his fall and just states that he is achy and has pain all over. Patient has a history of osteoarthritis, diabetes mellitus, hypertension, and is blind. Nurse contacted [facility] who states that this patient was not discharged yesterday. Patient signed himself out of this facility and took all of his belongings and medications with him and left. Patient told staff that he had family at his house that were going to take care of him. (KEZIA WOOD) At this time the patient states that someone is supposed to be interviewed today for the position that was left unfilled as visitor service assistant enterprise systems manager at his house. There is no assurance this will occur, there is no shortness person will take the position, though no shortness of the do take position that they can start today. He does not want to go back to [facility], but I explained to him that he is created a dilemma for himself and us by his actions yesterday. (ALANA GONZALEZ) - Related Data Allergies/Adverse Reactions: No Known Allergies Allergy (Verified 07/23/17 14:13) Past Medical History - General Information source: Patient, PENDING SALE TO [facility] Records - Social History Smoking Status: Never Smoker Cigarette use (# per day): No Chew tobacco use (# tins/day): No Smoking Education Provided: No Frequency of alcohol use: None Drug Abuse: None Family History: Arthritis, Hypertension Patient has suicidal ideation: No Patient has homicidal ideation: No - Past Medical History Cardiac Medical History: Reports: Hx Hypertension Endocrine Medical History: Reports: Hx Diabetes Mellitus Type 2 Renal/ Medical History: Reports: Hx Benign Prostatic Hyperplasia Musculoskeltal Medical History: Reports Hx Arthritis - OA, Reports Other - spinal stenosis Psychiatric Medical History: Reports: Hx Depression Past Surgical History: Reports: Hx Cholecystectomy, Hx Orthopedic Surgery - right knee replacement - Immunizations Hx Diphtheria, Pertussis, Tetanus Vaccination: No Hx Pneumococcal Vaccination: 07/02/09 <ALEXCHRISSYKEZIA - Last Filed: 07/23/17 15:35> Review of Systems - Review of Systems Constitutional: No symptoms reported EENT: No symptoms reported Cardiovascular: No symptoms reported Respiratory: No symptoms reported Gastrointestinal: No symptoms reported Genitourinary: No symptoms reported Male Genitourinary: No symptoms reported Musculoskeletal: See HPI Skin: No symptoms reported Hematologic/Lymphatic: No symptoms reported Neurological/Psychological: No symptoms reported -: Yes All other systems reviewed and negative <ALEXCHRISSYKEZIA - Last Filed: 07/23/17 15:35> Physical Exam - Vital signs Interpretation: Hypertensive <ALEXCHRISSYKEZIA - Last Filed: 07/23/17 15:35> <ALANA GONZALEZ - Last Filed: 07/23/17 18:41> - Vital signs Vitals: Temp Pulse Resp BP Pulse Ox 98.6 F 73 17 146/54 H 95 07/23/17 14:11 07/23/17 14:11 07/23/17 14:11 07/23/17 14:11 07/23/17 14:11 - Notes Notes: GENERAL: Blind but alert and oriented. Interacts well. No acute distress. HEAD: Normocephalic, atraumatic. ENT: Dry mucus membranes, thick saliva, tongue midline, posterior oropharynx has edema. NECK: Full range of motion. Supple. Trachea midline. LUNGS: Clear to auscultation bilaterally, no wheezes, rales, or rhonchi. No respiratory distress. HEART: Regular rate and rhythm. No murmurs, gallops, or rubs. ABDOMEN: Obese. Soft, non-tender. Non-distended. Normal bowel sounds. EXTREMITIES: Moves all 4 extremities spontaneously. Normal strength. No edema. Left foot is bandaged-patient is seeing wound care for such. NEUROLOGICAL: Alert and oriented x3. Normal speech. No focal neurological deficits. GCS 15. PSYCH: Normal affect, normal mood. SKIN: Warm, dry, normal turgor. (KEZIA WOOD) Course - Laboratory Result Diagrams: 07/23/17 14:40 07/23/17 14:40 <KEZIA WOOD - Last Filed: 07/23/17 15:35> - Laboratory Result Diagrams: 07/23/17 14:40 07/23/17 14:40 <ALANA GONZALEZ - Last Filed: 07/23/17 18:41> - Re-evaluation Re-evalutation: 07/23/17 18:26 The nursing staff made phone calls to [facility], they were told the patient signed him self out on a leave of absence yesterday. The nurse was also told that the patient could not come back. The tech on duty refused to give the nurse any information in order to speak with an administrative official , and stated they would not be available until Tuesday. The tech also told the nurse that the patient had been given a 14 day notice that yesterday, I was unable to get clarification of what that meant. Eventually the patient was able to come up with a phone number to a pedicab driver friend of his who is willing to come pick him up, and to ensure that there is someone who will stay with the patient tonight. All of this is explained to the patient, he is also warned about taking this course of action, as he does have controlled substances among his medications, and he is blind and will be at the mercy of whomever stays with him. He understands this, and still insists on returning home with this current arrangement. The patient is mentally competent and able to make his own decisions. 07/23/17 18:41 After I have done the patient is discharged and cover the information with him, the nurse informs me that an compensation and benefits administrator from [facility] called her back and stated that they wanted the patient back there. I suspect she found out what was going on a realize that they are in violation of state and federal law based on what their tech told us earlier after talking to an bilingual office assistant. The patient still does not want to go back there, I cannot force him to as he does appear mentally competent to make his own decisions whether we agree with them or not. (ALANA GONZALEZ) - Vital Signs Vital signs: Temp Pulse Resp BP Pulse Ox 97.7 F 74 16 165/57 H 95 07/23/17 17:49 07/23/17 17:49 07/23/17 17:49 07/23/17 17:49 07/23/17 17:49 - Laboratory Laboratory results interpreted by me: 07/23/17 07/23/17 07/23/17 14:40 14:40 17:03 RBC 3.93 L Hgb 10.5 L Hct 31.1 L MCV 79 L MCH 26.7 L RDW 16.7 H BUN 24 H Glucose 159 H AST 16 L ALT 20 L Urine Protein 30 H Urine Glucose (UA) 50 H Urine Ascorbic Acid 40 H Discharge <KEZIA WOOD - Last Filed: 07/23/17 15:35> <ALANA GONZALEZ - Last Filed: 07/23/17 18:41> - Discharge Clinical Impression: Falls Qualifiers: Encounter type: initial encounter Qualified Code(s): W19.XXXA - Unspecified fall, initial encounter Condition: Stable Disposition: HOME, SELF-CARE Additional Instructions: No new injury was detected during evaluation today. There is concern about your present living arrangement, however you do insist on returning home with the arrangements you have made with your pedicab driver friend. You should follow-up with your primary care provider in the next few days for recheck and to review your current medications and living arrangements. You may return to the emergency room any time if you feel things are not working out at home. RETURN TO THE EMERGENCY ROOM IF ANY NEW OR WORSENING SYMPTOMS. Referrals: MACEY REIS MD [Primary Care Provider] - Follow up in 3-5 days Scribe Attestation: 07/23/17 16:54 I personally performed the services described in the documentation, reviewed and edited the documentation which was dictated to the scribe in my presence, and it accurately records my words and actions. (ALANA GONZALEZ) Scribe Documentation - Scribe Written by Lit:: Lit Zarate 07/23/2017 15:00 acting as scribe for :: Radha <KEZIA WOOD - Last Filed: 07/23/17 15:35>
[2017-07-23 15:04] LABS: ABSOLUTE EOSINOPHILS # (AUTO) 0.1 10^3/uL (0.0-0.6); ABSOLUTE LYMPHOCYTES (AUTO) 1.7 10^3/uL (0.5-4.7); ABSOLUTE NEUT (AUTO) 7.1 10^3/uL (1.7-8.2); BASOPHILS % (AUTO) 0.2 % (0-2); EOSINOPHILS % (AUTO) 0.6 % (0-6); HEMATOCRIT 31.1 % (37.9-51.0); HEMOGLOBIN 10.5 g/dL (13.5-17.0); HGB HCT DIFFERENCE 0.4; LYMPHOCYTES % (AUTO) 17.2 % (13-45); MEAN CORPUSCULAR HEMOGLOBIN 26.7 pg (27.0-33.4); MEAN CORPUSCULAR HGB CONC 33.8 g/dL (32.0-36.0); MEAN CORPUSCULAR VOLUME 79 fl (80-97); MONOCYTES % (AUTO) 10.4 % (3-13); RED BLOOD COUNT 3.93 10^6/uL (4.35-5.55); RED CELL DISTRIBUTION WIDTH 16.7 % (11.5-14.0); SEGMENTED NEUTROPHILS % (AUTO) 71.6 % (42-78); WHITE BLOOD COUNT 9.9 10^3/uL (4.0-10.5)
[2017-07-23 15:25] LABS: ALANINE AMINOTRANSFERASE 20 U/L (21-72); ALBUMIN 3.6 g/dL (3.5-5.0); ALKALINE PHOSPHATASE 79 U/L (38-126); ANION GAP 11 (5-19); ASPARTATE AMINO TRANSFERASE 16 U/L (17-59); BILIRUBIN,DIRECT 0.2 mg/dL (0.0-0.4); BILIRUBIN,TOTAL 0.3 mg/dL (0.2-1.3); BLOOD UREA NITROGEN 24 mg/dL (7-20); CALCIUM 9.6 mg/dL (8.4-10.2); CARBON DIOXIDE 27 mmol/L (22-30); CHLORIDE 105 mmol/L (98-107); CREATININE RESULT 0.68 mg/dL (0.52-1.25); GLUCOSE 159 mg/dL (75-110); TOTAL PROTEIN 6.4 g/dL (6.3-8.2)
[2017-07-23 17:26] LABS: APPEARANCE,URINE SLIGHTLY-CLOUDY; BILIRUBIN,URINE NEGATIVE (NEGATIVE); GLUCOSE, URINE 50 mg/dL (NEGATIVE); KETONES,URINE NEGATIVE (NEGATIVE); LEUKOCYTE ESTERASE,URINE NEGATIVE (NEGATIVE); NITRITE,URINE NEGATIVE (NEGATIVE); PROTEIN,URINE 30 mg/dL (NEGATIVE); URINE SPECIFIC GRAVITY 1.019; UROBILINOGEN,URINE NEGATIVE mg/dL (<2.0)
[2017-07-23 19:10] VITALS: BP 149/62
== END 2017-07-23 19:20 | disposition home or self-care (01) ==
LOC: ER 13:54
DX: M19.90 Unspecified osteoarthritis, unspecified site (principal); E11.9 Type 2 diabetes mellitus without complications; R52 Pain, unspecified; I10 Essential (primary) hypertension; W19.XXXA Unspecified fall, initial encounter
CPT/HCPCS: 36415; 80053; 81001; 85025; 87070; 87880; 99284

== ENCOUNTER 2017-09-25 04:24 | Inpatient (IN) | payer MEDICARE ==
[2017-09-25] MEDS ORDERED: NORMAL SALINE 1000 ML 1,000 ML IV ONE (04:34)
[2017-09-25 04:46] LABS: ABSOLUTE EOSINOPHILS # (AUTO) 0.1 10^3/uL (0.0-0.6); ABSOLUTE LYMPHOCYTES (AUTO) 0.7 10^3/uL (0.5-4.7); ABSOLUTE MONOCYTES (AUTO) 0.8 10^3/uL (0.1-1.4); ABSOLUTE NEUT (AUTO) 7.2 10^3/uL (1.7-8.2); BASOPHILS % (AUTO) 0.3 % (0-2); EOSINOPHILS % (AUTO) 0.7 % (0-6); HEMATOCRIT 35.3 % (37.9-51.0); HEMOGLOBIN 11.6 g/dL (13.5-17.0); HGB HCT DIFFERENCE -0.5; LYMPHOCYTES % (AUTO) 7.5 % (13-45); MEAN CORPUSCULAR HEMOGLOBIN 26.7 pg (27.0-33.4); MEAN CORPUSCULAR VOLUME 81 fl (80-97); MONOCYTES % (AUTO) 9.4 % (3-13); RED BLOOD COUNT 4.37 10^6/uL (4.35-5.55); RED CELL DISTRIBUTION WIDTH 16.8 % (11.5-14.0); SEGMENTED NEUTROPHILS % (AUTO) 82.1 % (42-78); WHITE BLOOD COUNT 8.8 10^3/uL (4.0-10.5)
--- NOTE | 2017-09-25 04:53 | ER Document Report ---
ED Fever - General Chief Complaint: Fever Stated Complaint: FEVER Time Seen by Provider: 09/25/17 04:33 Notes: The patient is a 89-year-old blind male who presents from home after his home nurse checked his temperature at 4 AM and it was 102.7. Patient is having a productive cough. He was also found to be tachypneic and hypoxic down to 82% on room air. He said he has a 60 year smoking history, but does not wear oxygen at home and has never been diagnosed with COPD. Patient was given 1 L normal saline bolus and 975 mg Tylenol by EMS prior to arrival. Patient denies chest pain, nausea, vomiting, rash, abdominal pain, urinary symptoms, headache, neck stiffness or flank pain. TRAVEL OUTSIDE OF THE [place] IN LAST 30 DAYS: No - Related Data Allergies/Adverse Reactions: No Known Allergies Allergy (Verified 07/23/17 14:13) Past Medical History - General Information source: Patient - Social History Smoking Status: Former Smoker Family History: Arthritis, Hypertension - Past Medical History Cardiac Medical History: Reports: Hx Hypertension Endocrine Medical History: Reports: Hx Diabetes Mellitus Type 2 Renal/ Medical History: Reports: Hx Benign Prostatic Hyperplasia. Denies: Hx Peritoneal Dialysis Musculoskeltal Medical History: Reports Hx Arthritis - OA Psychiatric Medical History: Reports: Hx Depression Past Surgical History: Reports: Hx Cholecystectomy, Hx Orthopedic Surgery - right knee replacement - Immunizations Hx Diphtheria, Pertussis, Tetanus Vaccination: No Hx Pneumococcal Vaccination: 07/02/09 Review of Systems - Review of Systems Notes: REVIEW OF SYSTEMS: CONSTITUTIONAL: +fevers, -chills EENT: -eye pain, -difficulty swallowing, -nasal congestion CARDIOVASCULAR:-chest pain, -syncope. RESPIRATORY: +cough, +SOB GASTROINTESTINAL: -abdominal pain, -nausea, -vomiting, -diarrhea GENITOURINARY: -dysuria, -hematuria MUSCULOSKELETAL: -back pain, -neck pain SKIN: -rash or skin lesions. HEMATOLOGIC: -easy bruising or bleeding. LYMPHATIC: -swollen, enlarged glands. NEUROLOGICAL: -altered mental status or loss of consciousness, -headache, - neurologic symptoms PSYCHIATRIC: -anxiety, -depression. ALL OTHER SYSTEMS REVIEWED AND NEGATIVE. Physical Exam - Vital signs Vitals: Pulse Ox 88 L 09/25/17 04:29 - Notes Notes: PHYSICAL EXAMINATION: GENERAL: Well-appearing, well-nourished and in no acute distress. HEAD: Atraumatic, normocephalic. EYES: Pupils equal round and reactive to light, extraocular movements intact, sclera anicteric, conjunctiva are normal. ENT: nares patent, oropharynx clear without exudates. Moist mucous membranes. NECK: Normal range of motion, supple without lymphadenopathy LUNGS: Coarse breath sounds. Crackles in LLL and RLL. HEART: Tachycardia. ABDOMEN: Soft, nontender, normoactive bowel sounds. No guarding, no rebound. No masses appreciated. EXTREMITIES: Normal range of motion, no pitting or edema. No cyanosis. NEUROLOGICAL: Cranial nerves grossly intact. Normal speech, normal gait. Normal sensory and motor exams. PSYCH: Normal mood, normal affect. SKIN: Warm, Dry, normal turgor, no rashes or lesions noted. Course - Re-evaluation Re-evalutation: Patient with tachypnea, fever up to 102 and hypoxia down to 84% on room air. On chest x-ray, he has evidence of left lower lobe pneumonia and right middle lobe pneumonia. Patient only with mild respiratory distress and his oxygenation improves using a Ventimask because he is a mouth breather. He does not require intubation at this time. No recent hospitalizations and he lives at home with home nursing. Will begin CAP antibiotics and admit patient as inpatient for IV antibiotics and oxygen. 09/25/17 05:[address] Mclaughlin and she will admit patient to [facility] as Inpatient. - Vital Signs Vital signs: Temp Pulse Resp BP Pulse Ox 17 158/60 H 91 L 09/25/17 04:31 09/25/17 04:31 09/25/17 04:45 - Laboratory Result Diagrams: 09/25/17 04:30 09/25/17 04:30 Laboratory results interpreted by me: 09/25/17 09/25/17 09/25/17 04:30 04:30 04:30 Hgb 11.6 L Hct 35.3 L MCH 26.7 L RDW 16.8 H Seg Neutrophils % 82.1 H Lymphocytes % 7.5 L Chloride 108 H Glucose 205 H Lactic Acid 2.5 H Total Protein 6.1 L - Diagnostic Test Radiology reviewed: Image reviewed, Reports reviewed Radiology results interpreted by me: CXR: Multifocal pneumonia - EKG Interpretation by Me EKG shows normal: Sinus rhythm, [place], Intervals, QRS Complexes, ST-T Waves Rate: Normal When compared to previous EKG there are: No significant change Discharge - Discharge Clinical Impression: Multifocal pneumonia, Hypoxia Sepsis Qualifiers: Sepsis type: sepsis due to unspecified organism Qualified Code(s): A41.9 - Sepsis, unspecified organism Condition: Stable Disposition: ADMITTED INPATIENT Admitting Provider: [facility] Unit Admitted: [facility]
[2017-09-25] MEDS ORDERED: AZITHROMYCIN INJ 500 MG VIAL IV ONE (05:07)
[2017-09-25] MEDS ORDERED: CEFTRIAXONE 1 GM/D5W RTU 1 GM/50 ML RTUPB IV ONE (05:07)
[2017-09-25 05:10] LABS: ALANINE AMINOTRANSFERASE 39 U/L (21-72); ALBUMIN 3.5 g/dL (3.5-5.0); ALKALINE PHOSPHATASE 103 U/L (38-126); ANION GAP 13 (5-19); ASPARTATE AMINO TRANSFERASE 27 U/L (17-59); BILIRUBIN,DIRECT 0.3 mg/dL (0.0-0.4); BILIRUBIN,TOTAL 0.4 mg/dL (0.2-1.3); BLOOD UREA NITROGEN 20 mg/dL (7-20); CALCIUM 8.6 mg/dL (8.4-10.2); CARBON DIOXIDE 23 mmol/L (22-30); CHLORIDE 108 mmol/L (98-107); CREATINE KINASE 83 U/L (55-170); CREATININE RESULT 0.94 mg/dL (0.52-1.25); GLUCOSE 205 mg/dL (75-110); POTASSIUM 3.8 mmol/L (3.6-5.0); SODIUM 144.3 mmol/L (137-145); TOTAL PROTEIN 6.1 g/dL (6.3-8.2)
--- NOTE | 2017-09-25 05:20 | RADIOLOGY REPORT (SQ) ---
EXAM DESCRIPTION: CHEST SINGLE VIEW COMPLETED DATE/TIME: 09/25/2017 5:06 am REASON FOR STUDY: fever COMPARISON: 06/20/2017. EXAM PARAMETERS: NUMBER OF VIEWS: One view. TECHNIQUE: Single frontal radiographic view of the chest acquired. RADIATION DOSE: NA LIMITATIONS: None. FINDINGS: LUNGS AND PLEURA: Moderate patchy airspace opacity of the left lower hemithorax. Pulmonar y vascular congestion. MEDIASTINUM AND HILAR STRUCTURES: No masses. Contour normal. HEART AND VASCULAR STRUCTURES: Heart normal in size. Normal vasculature. BONES: No acute findings. HARDWARE: None in the chest. OTHER: No other significant finding. IMPRESSION: Moderate left lower lobar pneumonia. TECHNICAL DOCUMENTATION: JOB ID: [id number] [employer]- All Rights Reserved
[2017-09-25 05:25] LABS: VENOUS BLOOD BASE EXCESS -2.5 mmol/L; VENOUS BLOOD HCO3 21.6 mmol/L (20-32); VENOUS BLOOD PCO2 35.4 mmHg (35-63); VENOUS BLOOD PH 7.4 (7.30-7.42)
[2017-09-25 05:35] LABS: APPEARANCE,URINE SLIGHTLY-CLOUDY; BILIRUBIN,URINE NEGATIVE (NEGATIVE); GLUCOSE, URINE NEGATIVE (NEGATIVE); KETONES,URINE NEGATIVE (NEGATIVE); LEUKOCYTE ESTERASE,URINE NEGATIVE (NEGATIVE); NITRITE,URINE NEGATIVE (NEGATIVE); PROTEIN,URINE 100 mg/dL (NEGATIVE); URINE SPECIFIC GRAVITY 1.014; UROBILINOGEN,URINE NEGATIVE mg/dL (<2.0)
[2017-09-25] MEDS ORDERED: NORMAL SALINE 1000 ML 1,000 ML IV PRN (05:42)
[2017-09-25] MEDS ORDERED: ACETAMINOPHEN 325 MG TABLET PO PRN (05:42)
[2017-09-25] MEDS ORDERED: LEVALBUTEROL HCL NEB 1.25 MG/3 ML AMPUL NEB PRN (05:42)
[2017-09-25 05:44] LABS: BACTERIA,URINE 1+ /HPF
[2017-09-25] MEDS ORDERED: DEXTROSE 50%-WATER 25 GM/50 ML DISP.SYRIN IV PRN ×2 (05:47)
[2017-09-25] MEDS ORDERED: GLUCAGON,HUMAN RECOMB 1 MG INJ IM PRN (05:47)
[2017-09-25] MEDS ORDERED: DEXTROSE 40% GEL 15 GM TUBE PO PRN ×2 (05:47)
--- NOTE | 2017-09-25 06:00 | PDOC H&P ---
History of Present Illness Admission Date/PCP: 09/25/17 05:34 History of Present Illness: LIBERTY CHAN is a 89 year old male with past medical history of blindness, diabetes mellitus, neuropathy, ankylosing spondylitis, hypertension who presents to the emergency department with complaints of fever. Patient apparently had a fever of 102.5 at home and EMS was activated and when patient arrived in the hospital he was 99.2. Upon arriving at his home patient was found to have a room air oxygen saturation of 82% and was subsequently 88% on presentation to the emergency department on 6 L nonrebreather. Patient complains of fatigue and being unable to sleep. Patient also complains of cough beginning over the last several days as well as nausea without vomiting. Patient has had his last bowel movement on . He is referred to the hospital service for sepsis and pneumonia. Patient's medications are currently unavailable at this time as his caregivers did not bring them. Current list is automatically generated by [employer] and does not reflect an accurate description of his medications. Due to the urgent/ emergent nature of his condition, he is admitted without a full list. Past Medical History Cardiac Medical History: Reports: Hypertension Endocrine Medical History: Reports: Diabetes Mellitus Type 2 Musculoskeltal Medical History: Reports: Arthritis - OA, Other - Ankylosing spondylitis Psychiatric Medical History: Reports: Depression Hematology: Denies: Anemia, Sickle Cell Disease Past Surgical History Past Surgical History: Reports: Cholecystectomy, Orthopedic Surgery - right knee replacement Social History Smoking Status: Former Smoker Frequency of Alcohol Use: None Hx Recreational Drug Use: No Drugs: None Hx Prescription Drug Abuse: No - Advance Directive Resuscitation Status: Do Not Resuscitate Surrogate healthcare decision maker:: Lazarus Chan, son Family History Family History: Arthritis, Hypertension Parental Family History Reviewed: Yes Children Family History Reviewed: Yes Sibling(s) Family History Reviewed.: Yes Medication/Allergy Home Medications: Amlodipine Besylate [Norvasc 10 mg Tablet] 10 mg PO DAILY 11/27/16 Duloxetine HCl [Cymbalta] 60 mg PO BID 11/27/16 Tamsulosin HCl [Flomax 0.4 mg Cap.sr] 0.4 mg PO DAILY 11/27/16 Gabapentin 600 mg PO TID 03/04/17 Oxycodone HCl [Oxycodone HCl 10 MG Tablet] 10 mg PO Q6HP PRN 03/04/17 Amlodipine Besylate 10 mg PO DAILY 06/09/17 Chromium Picolinate 500 mcg PO DAILY 06/09/17 Collagenase Clostridium Hist. [Santyl Ointment 30 gm] 1 dose SUBD DAILY Metformin HCl 500 mg PO BID 06/09/17 Nystatin/Dexameth/Diphen [Magic Mouthwash (Omh Formula) Susp] 5 ml PO QID #120 ml 06/09/17 Penicillin V Potassium [Penicillin Vk 500 mg Tablet] 500 mg PO BID #20 tablet Albuterol Sulfate [Proair HFA Inhalation Aerosol 8.5 gm MDI] 2 puff IH Q4H PRN # 1 mdi 06/20/17 Levofloxacin [Levaquin 500 mg Tablet] 500 mg PO DAILY #10 tablet 06/20/17 Prednisone [Deltasone 20 mg Tablet] 2 tab PO DAILY 5 Days tablet 06/20/17 Allergies/Adverse Reactions: No Known Allergies Allergy (Verified 07/23/17 14:13) Review of Systems Constitutional: PRESENT: chills, fatigue, fever(s), weakness. ABSENT: headache( s), weight gain, weight loss Eyes: PRESENT: visual disturbances - Chronic blindness Ears: ABSENT: hearing changes Cardiovascular: ABSENT: chest pain, dyspnea on exertion, edema, orthropnea, palpitations Respiratory: PRESENT: cough, dyspnea, sputum. ABSENT: hemoptysis Gastrointestinal: PRESENT: constipation, nausea. ABSENT: abdominal pain, diarrhea, hematemesis, hematochezia, melena, vomiting Genitourinary: ABSENT: dysuria, hematuria Musculoskeletal: ABSENT: joint swelling Integumentary: ABSENT: rash, wounds Neurological: ABSENT: abnormal gait, abnormal speech, confusion, dizziness, focal weakness, syncope Psychiatric: ABSENT: anxiety, depression, homidical ideation, suicidal ideation Endocrine: ABSENT: cold intolerance, heat intolerance, polydipsia, polyuria Hematologic/Lymphatic: ABSENT: easy bleeding, easy bruising Physical Exam Vital Signs: Temp Pulse Resp BP Pulse Ox 15 158/60 H 89 L 09/25/17 05:00 09/25/17 04:31 09/25/17 05:00 General appearance: PRESENT: mild distress, obese, well-developed, well- nourished Head exam: PRESENT: atraumatic, normocephalic Eye exam: PRESENT: conjunctiva pink, EOMI. ABSENT: PERRLA - Unreactive, scleral icterus Ear exam: PRESENT: normal external ear exam Mouth exam: PRESENT: dry mucosa, tongue midline Neck exam: PRESENT: lymphadenopathy. ABSENT: JVD, thyromegaly, tracheal deviation Respiratory exam: PRESENT: accessory muscle use, prolonged expiratory phas, rhonchi - Bilaterally, symmetrical, tachypnea. ABSENT: rales, retraction, wheezes Cardiovascular exam: PRESENT: RRR, +S1, +S2, systolic murmur. ABSENT: diastolic murmur, rubs Pulses: PRESENT: normal dorsalis pedis pul Vascular exam: PRESENT: normal capillary refill GI/Abdominal exam: PRESENT: normal bowel sounds, soft. ABSENT: distended, guarding, mass, organolmegaly, rebound, tenderness Rectal exam: PRESENT: deferred Extremities exam: PRESENT: full ROM, +1 edema. ABSENT: calf tenderness, clubbing Neurological exam: PRESENT: alert, awake, oriented to person, oriented to place , oriented to time, oriented to situation. ABSENT: CN II-XII grossly intact - Blindness, motor sensory deficit Psychiatric exam: PRESENT: appropriate affect, normal mood. ABSENT: homicidal ideation, suicidal ideation Skin exam: PRESENT: dry, intact, warm. ABSENT: cyanosis, rash Results Laboratory Results: 09/25/17 09/25/17 09/25/17 04:30 04:30 04:30 WBC 8.8 Hgb 11.6 L Hct 35.3 L Plt Count 212 VBG pH Sodium 144.3 Potassium 3.8 Chloride 108 H Carbon Dioxide 23 Anion Gap 13 BUN 20 Creatinine 0.94 Glucose 205 H Lactic Acid 2.5 H Calcium 8.6 Total Bilirubin 0.4 Direct Bilirubin 0.3 AST 27 ALT 39 Alkaline Phosphatase 103 Creatine Kinase 83 Total Protein 6.1 L Albumin 3.5 Urine RBC Urine WBC 09/25/17 09/25/17 05:06 05:20 WBC Hgb Hct Plt Count VBG pH 7.40 Sodium Potassium Chloride Carbon Dioxide Anion Gap BUN Creatinine Glucose Lactic Acid Calcium Total Bilirubin Direct Bilirubin AST ALT Alkaline Phosphatase Creatine Kinase Total Protein Albumin Urine RBC 10-20 Urine WBC 1-5 Impressions: Chest X-Ray 09/25/17 04:34 IMPRESSION: Moderate left lower lobar pneumonia. Status: Imported from PACS Assessment & Plan - Diagnosis (1) Acute hypoxemic respiratory failure Is this a current diagnosis for this admission?: Yes Plan: Oxygen as needed to maintain saturation greater than 94% (2) Severe sepsis Is this a current diagnosis for this admission?: Yes Plan: Maintain map of 67 Due to patient's extreme age we will judiciously bolus him Placed on normal saline Antibiotics for community-acquired pneumonia (3) Multifocal pneumonia Is this a current diagnosis for this admission?: Yes Plan: Place patient on Rocephin and azithromycin for community-acquired pneumonia Place patient on scheduled nebulized treatments and re-evaluate for improvement. PRN Xopenex Place patient on IV Solu-Medrol, due to his past history of smoking Obtain sputum culture (4) Ankylosing spondylitis of cervical region Is this a current diagnosis for this admission?: Yes (5) BPH (benign prostatic hyperplasia) Qualifiers: Lower urinary tract symptom presence: presence of symptoms unspecified Qualified Code(s): N40.0 - Benign prostatic hyperplasia without lower urinary tract symptoms Is this a current diagnosis for this admission?: Yes Plan: Will place on Flomax (6) Constipation Qualifiers: Constipation type: unspecified constipation type Qualified Code(s): K59.00 - Constipation, unspecified Is this a current diagnosis for this admission?: Yes Plan: Place on Colace and senna as needed Dulcolax (7) Hypertension Qualifiers: Hypertension type: essential hypertension Qualified Code(s): I10 - Essential (primary) hypertension Is this a current diagnosis for this admission?: Yes (8) PAD (peripheral artery disease) Is this a current diagnosis for this admission?: Yes (9) Peripheral neuropathy Qualifiers: Peripheral neuropathy type: polyneuropathy, unspecified Qualified Code(s): G62.9 - Polyneuropathy, unspecified Is this a current diagnosis for this admission?: Yes - Time Time Spent: 30 to 50 Minutes Medications reviewed and adjusted accordingly: Yes Within: within 24 hours - Inpatient Certification Based on my medical assessment, after consideration of the patient's comorbidities, presenting symptoms, or acuity I expect that the services needed warrant INPATIENT care.: Yes I certify that my determination is in accordance with my understanding of Medicare's requirements for reasonable and necessary INPATIENT services [42 CFR 412.3e].: Yes Medical Necessity: Need For IV Fluids, Need for Nebulizer Therapy and Monitoring of Response, Need for IV Antibiotics Post Hospital Care: D/C [employer] Documentation
[2017-09-25] MEDS ORDERED: INFLUENZA ADLT QUAD (36MOS+) 2017-18 VAC 0.5 ML SYR IM PRN (08:04)
[2017-09-25] MEDS: METHYLPREDNISOLONE INJ 40 MG/1 ML SDV IV SCH ×3 (08:14→21:08)
[2017-09-25] MEDS: IPRATROPIUM/ALBUTEROL 0.5-2.5 MG/3 ML AMPUL NEB SCH ×3 (08:19→20:02)
--- NOTE | 2017-09-25 09:09 | EKG REPORT ---
SEVERITY:- ABNORMAL ECG - SINUS RHYTHM BORDERLINE ST DEPRESSION, ANTEROLATERAL LEADS : Confirmed by: Ian Harden MD 25-Sep-2017 09:08:13
[2017-09-25] MEDS ORDERED: CEFTRIAXONE 1 GM/D5W RTU 1 GM/50 ML RTUPB IV SCH (10:00)
[2017-09-25] MEDS ORDERED: AZITHROMYCIN 500 MG in DEXTROSE 5%-WATER 250 ML IV SCH (10:00)
[2017-09-25] MEDS: ENOXAPARIN SODIUM INJ 30 MG/0.3 ML DISP.SYRIN SUBCUT SCH (10:46)
[2017-09-25] MEDS: GUAIFENESIN 600 MG TABLET.SA PO SCH ×2 (10:46→21:08)
[2017-09-25] MEDS ORDERED: BISACODYL 10 MG SUPP.RECT PR ONE (13:32)
[2017-09-25] MEDS: INSULIN LISPRO 100 UNIT/ML 3 ML VIAL SUBCUT PRN ×3 (13:56→23:09)
--- NOTE | 2017-09-25 13:56 | Progress Note ---
Provider Note Provider Note: Patient refers that he had never been sick before. Nurse reports that patient is very constipated. ROS all organ systems evaluated and negative except as in subjective All significant laboratory and diagnostics have been reviewed Assessment and plan Left lower lobe pneumonia of unknown organism: discontinue Rocephin and Zithromax IV and placed on Zosyn IV
[2017-09-25] MEDS: TAMSULOSIN HCL 0.4 MG CAP.SR.24H PO SCH (17:42)
[2017-09-25] MEDS: PIPERACILLIN SODIUM/TAZOBACTAM 3.375 GM in NORMAL SALINE 100 ML IV SCH ×2 (17:42→23:09)
[2017-09-26] MEDS: IPRATROPIUM/ALBUTEROL 0.5-2.5 MG/3 ML AMPUL NEB SCH ×4 (02:23→20:37)
[2017-09-26] MEDS ORDERED: OXYCODONE-ACETAMINOPHEN 5-325 MG TABLET ONE (03:39)
[2017-09-26] MEDS ORDERED: OXYCODONE-ACETAMINOPHEN 5-325 MG TABLET PO PRN ×2 (03:46→13:37)
[2017-09-26] MEDS ORDERED: OXYCODONE HCL IR 5 MG TABLET PO PRN ×2 (03:48→13:39)
[2017-09-26] MEDS: METHYLPREDNISOLONE INJ 40 MG/1 ML SDV IV SCH ×2 (05:43→22:29)
[2017-09-26] MEDS: PIPERACILLIN SODIUM/TAZOBACTAM 3.375 GM in NORMAL SALINE 100 ML IV SCH ×4 (05:43→23:37)
--- NOTE | 2017-09-26 06:34 | EKG REPORT ---
SEVERITY:- ABNORMAL ECG - SINUS OR ECTOPIC ATRIAL RHYTHM ST DEPRESSION, CONSIDER ISCHEMIA, ANT-LAT LDS : Confirmed by: Car Nicholson 26-Sep-2017 17:03:02
[2017-09-26] MEDS: GUAIFENESIN 600 MG TABLET.SA PO SCH ×2 (09:03→22:29)
[2017-09-26] MEDS: INSULIN LISPRO 100 UNIT/ML 3 ML VIAL SUBCUT PRN ×3 (09:04→20:54)
[2017-09-26] MEDS: ENOXAPARIN SODIUM INJ 30 MG/0.3 ML DISP.SYRIN SUBCUT SCH (09:04)
[2017-09-26] MEDS ORDERED: POLYETHYLENE GLYCOL 3350 POWDER 17 GM/1 PACKET PO SCH (10:00)
[2017-09-26] MEDS ORDERED: NORMAL SALINE 1000 ML 1,000 ML IV PRN (12:13)
[2017-09-26] MEDS ORDERED: ALPRAZOLAM 0.5 MG TABLET PO PRN (12:16)
[2017-09-26] MEDS ORDERED: (PENDING PHARMACY ID) (Oxycodone Hcl/Acetaminophen [Percocet 7.5-325 Mg Tablet] 1 TAB) PO PRN (12:16)
[2017-09-26] MEDS ORDERED: METOCLOPRAMIDE HCL INJ/PF 10 MG/2 ML SDV IV ONE (13:30)
[2017-09-26] MEDS ORDERED: LEVALBUTEROL HCL NEB 1.25 MG/3 ML AMPUL NEB PRN (14:00)
[2017-09-26] MEDS ORDERED: GABAPENTIN 300 MG CAPSULE PO SCH (14:00)
--- NOTE | 2017-09-26 14:23 | RADIOLOGY REPORT (SQ) ---
EXAM DESCRIPTION: KUB/ABDOMEN (SINGLE VIEW) COMPLETED DATE/TIME: 09/26/2017 2:03 pm REASON FOR STUDY: constipation COMPARISON: 12/21/2016 NUMBER OF VIEWS: One view. TECHNIQUE: Supine radiographic image of the abdomen acquired. LIMITATIONS: None. FINDINGS: BOWEL GAS PATTERN: Mild gastric distention. No dilated small bowel loops. CALCIFICATIONS: No suspicious calcifications. SOFT TISSUES: No gross mass or suggestion of organomegaly. HARDWARE: Clips right upper quadrant. BONES: No bone lesions or fracture. OTHER: No other significant finding. IMPRESSION: Mild gastric distention.
[2017-09-26] MEDS ORDERED: PHARMACY COMMUNICATION ORDER MC NR (16:45)
[2017-09-26] MEDS ORDERED: OXYCODONE HCL IR 5 MG TABLET NG PRN (17:00)
[2017-09-26] MEDS ORDERED: DEXTROSE 40% GEL 15 GM TUBE NG PRN ×2 (17:00)
[2017-09-26] MEDS ORDERED: ALPRAZOLAM 0.5 MG TABLET NG PRN (17:00)
[2017-09-26] MEDS ORDERED: ACETAMINOPHEN 325 MG TABLET NG PRN (17:00)
[2017-09-26] MEDS ORDERED: OXYCODONE-ACETAMINOPHEN 5-325 MG TABLET NG PRN (17:00)
--- NOTE | 2017-09-26 17:09 | PDOC PROGRESS REPORT ---
Subjective Progress Note for:: 09/26/17 Subjective:: Patient complains of still being constipation. Nurse reported vomiting after evaluating patient ROS All organ systems evaluated and negative except as in subjective All significant laboratories and diagnostics have been reviewed Reason For Visit: SEPSIS,PNEUMONIA Physical Exam Vital Signs: Temp Pulse Resp BP Pulse Ox 97.8 F 91 18 149/47 H 94 09/26/17 03:30 09/26/17 03:52 09/26/17 03:30 09/26/17 03:30 09/26/17 03:30 Intake & Output 09/24/17 09/25/17 09/26/17 06:59 06:59 06:59 Intake Total 2300 Balance 2300 Weight 96.6 kg General appearance: PRESENT: no acute distress, cooperative, morbidly obese Head exam: PRESENT: atraumatic, normocephalic Eye exam: PRESENT: EOMI, PERRLA Mouth exam: PRESENT: moist, neck supple Neck exam: PRESENT: full ROM, meningismus. ABSENT: JVD Respiratory exam: PRESENT: clear to auscultation melvin. ABSENT: crackles, rhonchi Cardiovascular exam: PRESENT: RRR. ABSENT: diastolic murmur, systolic murmur Vascular exam: PRESENT: normal capillary refill GI/Abdominal exam: PRESENT: distended, firm, hypoactive bowel sounds Extremities exam: ABSENT: joint swelling, pedal edema Musculoskeletal exam: PRESENT: full ROM Neurological exam: PRESENT: alert, oriented to person, oriented to place, oriented to time Psychiatric exam: PRESENT: agitated Results Laboratory Results: 09/25/17 09:03 Lactic Acid 1.8 Impressions: Chest X-Ray 09/25/17 04:34 IMPRESSION: Moderate left lower lobar pneumonia. Assessment & Plan - Diagnosis (1) Constipation Qualifiers: Constipation type: drug induced constipation Qualified Code(s): K59.03 - Drug induced constipation Is this a current diagnosis for this admission?: Yes Plan: KUB requested and demonstrate profound gastric distention raising the concern about the possibility of gastric outlet obstruction. Patient also on chronic opioid use due to diabetic peripheral neuropathy (2) Multifocal pneumonia Is this a current diagnosis for this admission?: Yes Plan: Continue Zosyn IV. Chest x-ray demonstrated left lower lobe pneumonia (3) Sepsis Qualifiers: Sepsis type: sepsis due to unspecified organism Qualified Code(s): A41.9 - Sepsis, unspecified organism Is this a current diagnosis for this admission?: Yes Plan: Likely due to pneumonic process (4) Nausea & vomiting Is this a current diagnosis for this admission?: Yes Plan: Request NG tube and to order CT of the abdomen and pelvis with IV and oral contrast. Patient to be placed n.p.o. 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 Is this a current diagnosis for this admission?: Yes Plan: Pain management (6) Diabetes mellitus Qualifiers: Diabetes mellitus type: type 2 Diabetes mellitus complication status: with neurologic complications Diabetes mellitus complication detail: with autonomic neuropathy Diabetes mellitus assistant terminal manager insulin use: without assistant terminal manager use Qualified Code(s): E11.43 - Type 2 diabetes mellitus with diabetic autonomic (poly)neuropathy Is this a current diagnosis for this admission?: Yes Plan: Continue present management - Time Time Spent with patient: 15-24 minutes Medications reviewed and adjusted accordingly: Yes Anticipated discharge: SNF Within: within 72 hours - Inpatient Certification Based on my medical assessment, after consideration of the patient's comorbidities, presenting symptoms, or acuity I expect that the services needed warrant INPATIENT care.: Yes I certify that my determination is in accordance with my understanding of Medicare's requirements for reasonable and necessary INPATIENT services [42 CFR 412.3e].: Yes Medical Necessity: Need for Pain Control, Need for IV Antibiotics
--- NOTE | 2017-09-26 18:55 | RADIOLOGY REPORT (SQ) ---
EXAM DESCRIPTION: KUB/ABDOMEN (SINGLE VIEW) COMPLETED DATE/TIME: 09/26/2017 6:44 pm REASON FOR STUDY: Check Placement of NG Tube COMPARISON: None. NUMBER OF VIEWS: One view. TECHNIQUE: Supine radiographic image of the abdomen acquired. LIMITATIONS: None. FINDINGS: BOWEL GAS PATTERN: Normal bowel gas pattern. No dilated loops. CALCIFICATIONS: No suspicious calcifications. SOFT TISSUES: No gross mass or suggestion of organomegaly. HARDWARE: An NG tube is present. The tip NG tube is just within the body of the stomach greater curv ature. BONES: No acute fracture. No worrisome bone lesions. OTHER: No other significant finding. IMPRESSION: NG tube in the stomach as described. TECHNICAL DOCUMENTATION: JOB ID: [id number] [employer]- All Rights Reserved
[2017-09-26] MEDS: DOCUSATE SODIUM 100 MG CAPSULE PO SCH (18:59)
[2017-09-26] MEDS: METOCLOPRAMIDE HCL INJ/PF 10 MG/2 ML SDV IV SCH ×2 (18:59→23:36)
[2017-09-26] MEDS: TAMSULOSIN HCL 0.4 MG CAP.SR.24H PO SCH (18:59)
--- NOTE | 2017-09-26 21:38 | RADIOLOGY REPORT (SQ) ---
EXAM DESCRIPTION: CT ABD/PELVIS WITH IV ORAL COMPLETED DATE/TIME: 09/26/2017 8:29 pm REASON FOR STUDY: eval for gastric outlet obstruction COMPARISON: October 2016 TECHNIQUE: CT scan of the abdomen and pelvis performed using helical scanning technique with dynamic intravenous contrast injection and oral contrast. Images reviewed with lung, soft tissue, and bone w indows. Reconstructed coronal and sagittal MPR images reviewed. Delayed images for evaluation of the urinary system also acquired. All images stored on PACS. All CT scanners at this facility use dose modulation, iterative reconstruction, and/or weight based d osing when appropriate to reduce radiation dose to as low as reasonably achievable (ALARA). [facility]: Dose Right [facility]: CareDose [facility]: Dose Right [facility]: Teradose 4D [facility]: Novinda CONTRAST TYPE AND DOSE: 96 mL Isovue 370 RENAL FUNCTION: Creatinine 0.94 RADIATION DOSE: . LIMITATIONS: Study is limited due to artifact related to the patient's arms. Patient was unable to retain the oral contrast. FINDINGS: LOWER CHEST: There is bibasilar airspace consolidation most consistent with atelectatic ch anges although I cannot exclude basilar pneumonic infiltrates. LIVER: Normal size. No masses. Prominent intrahepatic bile ducts are again identified presumably rel ated to the patient being in post cholecystectomy SPLEEN: Normal size. No focal lesions. PANCREAS: No masses. No significant calcifications. No adjacent inflammation or peripancreatic fluid collections. Pancreatic duct not dilated. GALLBLADDER: Patient is status post cholecystectomy. ADRENAL GLANDS: No significant masses or asymmetry. RIGHT KIDNEY AND URETER: No solid masses. Multiple renal cysts appears stable. No significant calc ifications. No hydronephrosis or hydroureter. LEFT KIDNEY AND URETER: No solid masses. Multiple renal cyst appears stable. No significant calcifi cations. No hydronephrosis or hydroureter. AORTA AND VESSELS: No aneurysm. No dissection. Renal arteries, SMA, celiac without stenosis. RETROPERITONEUM: No retroperitoneal adenopathy, hemorrhage or masses. BOWEL AND PERITONEAL CAVITY: No masses or inflammatory changes. No free fluid or peritoneal masses. No obstructive changes are identified. APPENDIX: Normal. PELVIS: No mass. No free fluid. Normal bladder. ABDOMINAL WALL: No masses. No hernias. BONES: Extensive degenerative changes are again identified. OTHER: NG tube is seen with its tip in the stomach. IMPRESSION: NO SIGNIFICANT OR ACUTE FINDING IN THE ABDOMEN OR PELVIS ON CT SCAN WITH IV CONTRAST. TECHNICAL DOCUMENTATION: JOB ID: [id number] Quality ID # [id number]: Final reports with documentation of one or more dose reduction techniques (e.g., Au tomated exposure control, adjustment of the mA and/or kV according to patient size, use of iterative reconstruction technique) 2010 [employer]- All Rights Reserved
[2017-09-26] MEDS: GABAPENTIN 300 MG CAPSULE NG SCH (22:29)
[2017-09-27] MEDS: IPRATROPIUM/ALBUTEROL 0.5-2.5 MG/3 ML AMPUL NEB SCH ×4 (02:18→21:09)
[2017-09-27 05:43] LABS: ABSOLUTE LYMPHOCYTES (AUTO) 0.6 10^3/uL (0.5-4.7); ABSOLUTE MONOCYTES (AUTO) 0.4 10^3/uL (0.1-1.4); ABSOLUTE NEUT (AUTO) 10.2 10^3/uL (1.7-8.2); HEMATOCRIT 32.6 % (37.9-51.0); HEMOGLOBIN 10.5 g/dL (13.5-17.0); HGB HCT DIFFERENCE -1.1; LYMPHOCYTES % (AUTO) 5.1 % (13-45); MEAN CORPUSCULAR HGB CONC 32.3 g/dL (32.0-36.0); MEAN CORPUSCULAR VOLUME 80 fl (80-97); MONOCYTES % (AUTO) 3.6 % (3-13); RED BLOOD COUNT 4.05 10^6/uL (4.35-5.55); SEGMENTED NEUTROPHILS % (AUTO) 91.3 % (42-78); WHITE BLOOD COUNT 11.2 10^3/uL (4.0-10.5)
[2017-09-27 05:53] LABS: ANION GAP 13 (5-19); BLOOD UREA NITROGEN 18 mg/dL (7-20); CARBON DIOXIDE 29 mmol/L (22-30); CHLORIDE 105 mmol/L (98-107); CREATININE RESULT 0.73 mg/dL (0.52-1.25); GLUCOSE 199 mg/dL (75-110); POTASSIUM 3.2 mmol/L (3.6-5.0); SODIUM 147.1 mmol/L (137-145)
[2017-09-27 05:54] LABS: MAGNESIUM 2.2 mg/dL (1.6-2.3)
[2017-09-27] MEDS: METOCLOPRAMIDE HCL INJ/PF 10 MG/2 ML SDV IV SCH ×4 (06:27→23:24)
[2017-09-27] MEDS: PIPERACILLIN SODIUM/TAZOBACTAM 3.375 GM in NORMAL SALINE 100 ML IV SCH ×4 (06:27→23:22)
[2017-09-27] MEDS: GABAPENTIN 300 MG CAPSULE NG SCH ×3 (06:27→22:15)
[2017-09-27] MEDS: METHYLPREDNISOLONE INJ 40 MG/1 ML SDV IV SCH ×2 (09:41→22:16)
[2017-09-27] MEDS: ENOXAPARIN SODIUM INJ 30 MG/0.3 ML DISP.SYRIN SUBCUT SCH (09:41)
[2017-09-27] MEDS: DOCUSATE SODIUM 100 MG CAPSULE PO SCH ×2 (09:42→18:57)
[2017-09-27] MEDS: INSULIN LISPRO 100 UNIT/ML 3 ML VIAL SUBCUT PRN (09:42)
[2017-09-27] MEDS: AMLODIPINE BESYLATE 10 MG TABLET NG SCH (09:42)
[2017-09-27] MEDS: GUAIFENESIN 600 MG TABLET.SA PO SCH ×2 (09:43→22:15)
[2017-09-27] MEDS: DULOXETINE HCL 30 MG CAPSULE.DR PO SCH (09:44)
[2017-09-27] MEDS: POLYETHYLENE GLYCOL 3350 POWDER 17 GM/1 PACKET NG SCH (09:45)
[2017-09-27] MEDS ORDERED: AMLODIPINE BESYLATE 10 MG TABLET PO SCH (10:00)
[2017-09-27] MEDS ORDERED: TAMSULOSIN HCL 0.4 MG CAP.SR.24H PO SCH (10:00)
[2017-09-27] MEDS ORDERED: ONDANSETRON HCL INJ/PF 4 MG/2 ML SDV IV PRN (12:07)
--- NOTE | 2017-09-27 15:31 | RADIOLOGY REPORT (SQ) ---
EXAM DESCRIPTION: CHEST SINGLE VIEW COMPLETED DATE/TIME: 09/27/2017 3:16 pm REASON FOR STUDY: worsening of chest congestsion COMPARISON: 09/25/2017 EXAM PARAMETERS: NUMBER OF VIEWS: One view. TECHNIQUE: Single frontal radiographic view of the chest acquired. RADIATION DOSE: NA LIMITATIONS: None. FINDINGS: LUNGS AND PLEURA: There is opacification the left base with slight blurring of the left he art border near the diaphragm. MEDIASTINUM AND HILAR STRUCTURES: No masses. Contour normal. HEART AND VASCULAR STRUCTURES: Heart normal in size. Normal vasculature. BONES: No acute findings. HARDWARE: An NG tube extends to the stomach OTHER: No other significant finding. IMPRESSION: There appears to be a limited left lower lobe pneumonia. TECHNICAL DOCUMENTATION: JOB ID: [id number] [employer]- All Rights Reserved
--- NOTE | 2017-09-27 15:34 | PDOC PROGRESS REPORT ---
Subjective Progress Note for:: 09/27/17 Subjective:: Patient complains of feeling sick. Patient complains of having a lot of nausea. Nurse related that patient was telling that he wanted to . He was also complaining of having pains all over ROS All organ systems evaluated and negative except as in subjective All significant laboratories and diagnostics have been reviewed Reason For Visit: SEPSIS,PNEUMONIA Physical Exam Vital Signs: Temp Pulse Resp BP Pulse Ox 98.6 F 93 20 166/59 H 91 L 09/27/17 03:21 09/27/17 03:21 09/27/17 03:21 09/27/17 03:21 09/27/17 03:21 Intake & Output 09/25/17 09/26/17 09/27/17 06:59 06:59 06:59 Intake Total 3839 1200 Balance 3839 1200 Weight 96.6 kg 105.1 kg General appearance: PRESENT: no acute distress, cooperative, morbidly obese Head exam: PRESENT: atraumatic, normocephalic Eye exam: PRESENT: EOMI, PERRLA Ear exam: PRESENT: normal external ear exam, TM's normal bilaterally Mouth exam: PRESENT: moist Neck exam: PRESENT: full ROM, meningismus. ABSENT: JVD Respiratory exam: PRESENT: crackles, decreased breath sounds, rhonchi Cardiovascular exam: PRESENT: RRR. ABSENT: diastolic murmur, systolic murmur Vascular exam: PRESENT: normal capillary refill GI/Abdominal exam: PRESENT: distended, hypoactive bowel sounds, soft. ABSENT: tenderness Extremities exam: PRESENT: pedal edema. ABSENT: joint swelling Musculoskeletal exam: PRESENT: full ROM Neurological exam: PRESENT: alert, oriented to person, oriented to place, oriented to time Psychiatric exam: PRESENT: anxious Skin exam: PRESENT: normal color Results Laboratory Results: 09/25/17 20:35 Sputum Gram Stain - Final 09/25/17 20:35 Sputum Sputum Culture - Final C.albicans/C.dubliniensis Normal Faith Absent Impressions: Chest X-Ray 09/25/17 04:34 IMPRESSION: Moderate left lower lobar pneumonia. Abdomen/Pelvis CT 09/26/17 00:00 IMPRESSION: NO SIGNIFICANT OR ACUTE FINDING IN THE ABDOMEN OR PELVIS ON CT SCAN WITH IV CONTRAST. KUB X-Ray 09/26/17 16:40 IMPRESSION: NG tube in the stomach as described. Assessment & Plan - Diagnosis (1) Constipation Qualifiers: Constipation type: drug induced constipation Qualified Code(s): K59.03 - Drug induced constipation Is this a current diagnosis for this admission?: Yes Plan: Had a large bowel movement after was given regaln IV. (2) Multifocal pneumonia Is this a current diagnosis for this admission?: Yes Plan: Continue Zosyn IV. Order repeat chest x-ray since sounding more congested. Will consider adding Zyvox pending to chest x-ray (3) Sepsis Qualifiers: Sepsis type: sepsis due to unspecified organism Qualified Code(s): A41.9 - Sepsis, unspecified organism Is this a current diagnosis for this admission?: Yes Plan: Likely due to pneumonic process (4) Nausea & vomiting Is this a current diagnosis for this admission?: Yes Plan: Still quite nauseated despite NG tube. CT scan not informative due to lack of oral contrast. 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 Since n.p.o. 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: without intermodal truck driver use Qualified Code(s): E11.43 - Type 2 diabetes mellitus with diabetic autonomic (poly)neuropathy Is this a current diagnosis for this admission?: Yes Plan: Continue present management - Time Time Spent with patient: 15-24 minutes Medications reviewed and adjusted accordingly: Yes Anticipated discharge: SNF Within: Other - unable to determine at this time - Inpatient Certification Based on my medical assessment, after consideration of the patient's comorbidities, presenting symptoms, or acuity I expect that the services needed warrant INPATIENT care.: Yes I certify that my determination is in accordance with my understanding of Medicare's requirements for reasonable and necessary INPATIENT services [42 CFR 412.3e].: Yes Medical Necessity: Need for Pain Control, Need for IV Antibiotics
[2017-09-27] MEDS: MORPHINE SULFATE 10 MG/ML INJ IV PRN (16:48)
[2017-09-27] MEDS: TAMSULOSIN HCL 0.4 MG CAP.SR.24H PO SCH (18:57)
--- NOTE | 2017-09-27 18:59 | RADIOLOGY REPORT (SQ) ---
EXAM DESCRIPTION: CT ABD/PELVIS ORAL ONLY COMPLETED DATE/TIME: 09/27/2017 6:34 pm REASON FOR STUDY: nausea and vomiting COMPARISON: 09/26/2017 TECHNIQUE: CT scan of the abdomen and pelvis performed without intravenous contrast. A small amount of oral contrast was ingested. . Images reviewed with lung, soft tissue, and bone windows. Reconstr ucted coronal and sagittal MPR images reviewed. All images stored on PACS. All CT scanners at this facility use dose modulation, iterative reconstruction, and/or weight based d osing when appropriate to reduce radiation dose to as low as reasonably achievable (ALARA). [facility]: Dose Right [facility]: CareDose [facility]: Dose Right [facility]: Teradose 4D [facility]: [employer] RADIATION DOSE: mGy. LIMITATIONS: None. FINDINGS: LOWER CHEST: Small left pleural effusion, smaller right pleural effusion. Likely subsegme ntal atelectasis in the lung bases posteriorly. NON-CONTRASTED LIVER, SPLEEN, ADRENALS: Evaluation limited by lack of IV contrast. No identified sign ificant masses. PANCREAS: No masses. No peripancreatic inflammatory changes. GALLBLADDER: Surgically absent. RIGHT KIDNEY AND URETER: No solid masses. Several stable cysts are seen. No significant calcificat ions. No hydronephrosis or hydroureter. LEFT KIDNEY AND URETER: No solid masses. Stable cysts are present. No significant calcifications. No hydronephrosis or hydroureter. AORTA AND RETROPERITONEUM: No aneurysm. No retroperitoneal masses or adenopathy. BOWEL AND PERITONEAL CAVITY: Contrast is in the right colon. No bowel mass is seen. There is no jeanie dence of bowel obstruction. APPENDIX: Normal. PELVIS, BLADDER, AND ABDOMINAL WALL:No abnormal masses. No free fluid. Bladder normal. BONES: Multilevel degenerative disc disease and spondylosis. OTHER: No other significant finding. IMPRESSION: No acute process is seen in the abdomen or pelvis. Findings as described. COMMENT: Quality ID # [id number]: Final reports with documentation of one or more dose reduction techniques (e.g., Automated exposure control, adjustment of the mA and/or kV according to patient size, use of iterative reconstruction technique) TECHNICAL DOCUMENTATION: JOB ID: [id number]- All Rights Reserved
[2017-09-28] MEDS: NORMAL SALINE 1000 ML 1,000 ML IV PRN ×4 (00:27→22:17)
[2017-09-28] MEDS: IPRATROPIUM/ALBUTEROL 0.5-2.5 MG/3 ML AMPUL NEB SCH ×4 (01:47→19:54)
[2017-09-28 04:31] LABS: ABSOLUTE LYMPHOCYTES (AUTO) 0.5 10^3/uL (0.5-4.7); ABSOLUTE MONOCYTES (AUTO) 0.3 10^3/uL (0.1-1.4); ABSOLUTE NEUT (AUTO) 7.6 10^3/uL (1.7-8.2); BASOPHILS % (AUTO) 0.1 % (0-2); HEMOGLOBIN 11.3 g/dL (13.5-17.0); HGB HCT DIFFERENCE 0.9; LYMPHOCYTES % (AUTO) 6.2 % (13-45); MEAN CORPUSCULAR HGB CONC 34.3 g/dL (32.0-36.0); MEAN CORPUSCULAR VOLUME 79 fl (80-97); MONOCYTES % (AUTO) 3.9 % (3-13); RED BLOOD COUNT 4.19 10^6/uL (4.35-5.55); RED CELL DISTRIBUTION WIDTH 16.8 % (11.5-14.0); SEGMENTED NEUTROPHILS % (AUTO) 89.8 % (42-78); WHITE BLOOD COUNT 8.4 10^3/uL (4.0-10.5)
[2017-09-28 04:56] LABS: ANION GAP 13 (5-19); BLOOD UREA NITROGEN 18 mg/dL (7-20); CALCIUM 9.1 mg/dL (8.4-10.2); CARBON DIOXIDE 28 mmol/L (22-30); CHLORIDE 103 mmol/L (98-107); CREATININE RESULT 0.75 mg/dL (0.52-1.25); GLUCOSE 185 mg/dL (75-110); MAGNESIUM 2.2 mg/dL (1.6-2.3); POTASSIUM 3.5 mmol/L (3.6-5.0); SODIUM 143.7 mmol/L (137-145)
[2017-09-28] MEDS: GABAPENTIN 300 MG CAPSULE NG SCH ×3 (06:49→22:10)
[2017-09-28] MEDS: METOCLOPRAMIDE HCL INJ/PF 10 MG/2 ML SDV IV SCH ×4 (06:49→23:14)
[2017-09-28] MEDS: PIPERACILLIN SODIUM/TAZOBACTAM 3.375 GM in NORMAL SALINE 100 ML IV SCH ×4 (06:51→23:15)
[2017-09-28] MEDS: INSULIN LISPRO 100 UNIT/ML 3 ML VIAL SUBCUT PRN ×3 (08:26→22:11)
[2017-09-28] MEDS: GUAIFENESIN 600 MG TABLET.SA PO SCH ×2 (10:42→22:10)
[2017-09-28] MEDS: DULOXETINE HCL 30 MG CAPSULE.DR PO SCH (10:42)
[2017-09-28] MEDS: METHYLPREDNISOLONE INJ 40 MG/1 ML SDV IV SCH (10:42)
[2017-09-28] MEDS: DOCUSATE SODIUM 100 MG CAPSULE PO SCH ×2 (10:42→17:09)
[2017-09-28] MEDS: POLYETHYLENE GLYCOL 3350 POWDER 17 GM/1 PACKET NG SCH (10:42)
[2017-09-28] MEDS: AMLODIPINE BESYLATE 10 MG TABLET NG SCH (10:42)
[2017-09-28] MEDS: ENOXAPARIN SODIUM INJ 30 MG/0.3 ML DISP.SYRIN SUBCUT SCH (10:43)
[2017-09-28] MEDS: MORPHINE SULFATE 10 MG/ML INJ IV PRN (13:21)
[2017-09-28] MEDS ORDERED: HYDRALAZINE HCL INJ/PF 20 MG/1 ML SDV IV PRN (14:18)
[2017-09-28] MEDS ORDERED: HYDRALAZINE HCL 25 MG TABLET PO ONE (15:00)
[2017-09-28] MEDS ORDERED: FUROSEMIDE INJ/PF 20 MG/2 ML SDV IV ONE (15:28)
[2017-09-28] MEDS ORDERED: SORBITOL 70% SOLUTION 30 ML UDC PO PRN (15:32)
[2017-09-28] MEDS ORDERED: ENOXAPARIN SODIUM INJ 30 MG/0.3 ML DISP.SYRIN SUBCUT SCH (15:36)
--- NOTE | 2017-09-28 15:51 | PDOC PROGRESS REPORT ---
Subjective Progress Note for:: 09/28/17 Subjective:: Patient relates that does not feel good but relates that nausea is gone. He states that he misses his who 18 months ago. ROS All organ systems evaluated and negative except as in subjective All significant laboratories and diagnostics have been reviewed Reason For Visit: SEPSIS,PNEUMONIA Physical Exam Vital Signs: Temp Pulse Resp BP Pulse Ox 97.8 F 87 19 172/58 H 94 09/28/17 03:34 09/28/17 03:34 09/28/17 03:34 09/28/17 03:34 09/28/17 03:34 Intake & Output 09/26/17 09/27/17 09/28/17 06:59 06:59 06:59 Intake Total 3839 2323 450 Balance 3839 2323 450 Weight 105.1 kg 99.7 kg 98.4 kg General appearance: PRESENT: no acute distress, cooperative, obese Head exam: PRESENT: atraumatic, normocephalic Eye exam: PRESENT: conjunctiva pink, EOMI, PERRLA Mouth exam: PRESENT: moist, neck supple Respiratory exam: PRESENT: crackles Cardiovascular exam: PRESENT: RRR. ABSENT: diastolic murmur, systolic murmur Vascular exam: PRESENT: normal capillary refill GI/Abdominal exam: PRESENT: normal bowel sounds, soft. ABSENT: guarding, tenderness Extremities exam: PRESENT: full ROM, pedal edema. ABSENT: joint swelling Neurological exam: PRESENT: alert, oriented to person, oriented to place, oriented to time Psychiatric exam: PRESENT: appropriate affect, normal mood Skin exam: PRESENT: normal color Results Laboratory Results: 09/28/17 04:17 09/28/17 04:17 09/27/17 09/27/17 09/28/17 04:40 04:40 04:17 WBC 11.2 H 8.4 RBC 4.05 L 4.19 L Hgb 10.5 L 11.3 L Hct 32.6 L 33.0 L MCV 80 79 L MCH 26.0 L 27.0 MCHC 32.3 34.3 RDW 17.0 H 16.8 H Plt Count 243 259 Seg Neutrophils % 91.3 H 89.8 H Lymphocytes % 5.1 L 6.2 L Monocytes % 3.6 3.9 Eosinophils % 0.0 0.0 Basophils % 0.0 0.1 Absolute Neutrophils 10.2 H 7.6 Absolute Lymphocytes 0.6 0.5 Absolute Monocytes 0.4 0.3 Absolute Eosinophils 0.0 0.0 Absolute Basophils 0.0 0.0 Sodium 147.1 H Potassium 3.2 L Chloride 105 Carbon Dioxide 29 Anion Gap 13 BUN 18 Creatinine 0.73 Est GFR ( Amer) > 60 Est GFR (Non-Af Amer) > 60 Glucose 199 H Calcium 9.0 Magnesium 2.2 09/28/17 04:17 WBC RBC Hgb Hct MCV MCH MCHC RDW Plt Count Seg Neutrophils % Lymphocytes % Monocytes % Eosinophils % Basophils % Absolute Neutrophils Absolute Lymphocytes Absolute Monocytes Absolute Eosinophils Absolute Basophils Sodium 143.7 Potassium 3.5 L Chloride 103 Carbon Dioxide 28 Anion Gap 13 BUN 18 Creatinine 0.75 Est GFR ( Amer) > 60 Est GFR (Non-Af Amer) > 60 Glucose 185 H Calcium 9.1 Magnesium 2.2 Impressions: KUB X-Ray 09/26/17 16:40 IMPRESSION: NG tube in the stomach as described. Abdomen/Pelvis CT 09/27/17 00:00 IMPRESSION: No acute process is seen in the abdomen or pelvis. Findings as described. Chest X-Ray 09/27/17 00:00 IMPRESSION: There appears to be a limited left lower lobe pneumonia. Assessment & Plan - Diagnosis (1) Constipation Qualifiers: Constipation type: drug induced constipation Qualified Code(s): K59.03 - Drug induced constipation Is this a current diagnosis for this admission?: Yes (2) Multifocal pneumonia Is this a current diagnosis for this admission?: Yes Plan: Continue Zosyn IV. Resolving. Anticipate to transition to augmentin once ascertain oral intake. (3) Sepsis Qualifiers: Sepsis type: sepsis due to unspecified organism Qualified Code(s): A41.9 - Sepsis, unspecified organism Is this a current diagnosis for this admission?: Yes Plan: Likely due to pneumonic process. Resolved (4) Nausea & vomiting Qualifiers: Vomiting type: unspecified Vomiting Intractability: non-intractable Qualified Code(s): R11.2 - Nausea with vomiting, unspecified Is this a current diagnosis for this admission?: Yes Plan: Likely due to diabetic gastroparesis. Will discontinue NG tube. 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 (6) Diabetes mellitus Qualifiers: Diabetes mellitus type: type 2 Diabetes mellitus complication status: with neurologic complications Diabetes mellitus complication detail: with autonomic neuropathy Diabetes mellitus shelter insulin use: without shelter use Qualified Code(s): E11.43 - Type 2 diabetes mellitus with diabetic autonomic (poly)neuropathy Is this a current diagnosis for this admission?: Yes Plan: Continue present management (7) Acute hypoxemic respiratory failure Is this a current diagnosis for this admission?: Yes Plan: Improving. To wean oxygen (8) Hypertension Qualifiers: Hypertension type: essential hypertension Qualified Code(s): I10 - Essential (primary) hypertension Is this a current diagnosis for this admission?: Yes Plan: Add hydralazine, lisinopril and toprol xl. Monitor response (9) Elevated brain natriuretic peptide (BNP) level Is this a current diagnosis for this admission?: Yes Plan: Patient remains with rhonchi and I am concerned about the possibility of congestive heart failure. Will repeat BNP although it can be increased in a pneumonic process. Will proceed to adjust antihypertensive regimen and order an echocardiogram - Time Time Spent with patient: 15-24 minutes Medications reviewed and adjusted accordingly: Yes Anticipated discharge: Home - Inpatient Certification Based on my medical assessment, after consideration of the patient's comorbidities, presenting symptoms, or acuity I expect that the services needed warrant INPATIENT care.: Yes I certify that my determination is in accordance with my understanding of Medicare's requirements for reasonable and necessary INPATIENT services [42 CFR 412.3e].: Yes Medical Necessity: Need Close Monitoring Due to Risk of Patient Decompensation, Need for IV Antibiotics
[2017-09-28] MEDS ORDERED: FUROSEMIDE INJ/PF 40 MG/4 ML SDV IV ONE (16:00)
[2017-09-28] MEDS: TAMSULOSIN HCL 0.4 MG CAP.SR.24H PO SCH (17:09)
[2017-09-28] MEDS: HYDRALAZINE HCL 25 MG TABLET PO SCH (22:10)
[2017-09-29] MEDS: IPRATROPIUM/ALBUTEROL 0.5-2.5 MG/3 ML AMPUL NEB SCH ×4 (01:58→19:54)
[2017-09-29] MEDS: MORPHINE SULFATE 10 MG/ML INJ IV PRN ×2 (02:42→08:35)
[2017-09-29 05:06] LABS: ANION GAP 13 (5-19); BLOOD UREA NITROGEN 21 mg/dL (7-20); CALCIUM 8.4 mg/dL (8.4-10.2); CARBON DIOXIDE 30 mmol/L (22-30); CHLORIDE 100 mmol/L (98-107); CREATININE RESULT 0.82 mg/dL (0.52-1.25); GLUCOSE 132 mg/dL (75-110); SODIUM 143.2 mmol/L (137-145)
[2017-09-29 05:12] LABS: POTASSIUM 2.7 mmol/L (3.6-5.0)
[2017-09-29] MEDS: PIPERACILLIN SODIUM/TAZOBACTAM 3.375 GM in NORMAL SALINE 100 ML IV SCH (05:44)
[2017-09-29] MEDS: HYDRALAZINE HCL 25 MG TABLET PO SCH ×3 (05:47→22:14)
[2017-09-29] MEDS: METOCLOPRAMIDE HCL INJ/PF 10 MG/2 ML SDV IV SCH ×3 (05:47→17:27)
[2017-09-29] MEDS: GABAPENTIN 300 MG CAPSULE NG SCH (05:47)
[2017-09-29] MEDS: POTASSIUM CHLORIDE 20 MEQ/50 ML RTU IV SCH ×2 (06:30→08:35)
[2017-09-29] MEDS ORDERED: POTASSIUM CHLORIDE 10 MEQ TABLET.SA PO ONE (07:00)
[2017-09-29] MEDS ORDERED: HYDRALAZINE HCL INJ/PF 20 MG/1 ML SDV IV PRN (08:00)
[2017-09-29] MEDS ORDERED: DEXTROSE 40% GEL 15 GM TUBE PO PRN ×2 (08:00)
[2017-09-29] MEDS ORDERED: ALPRAZOLAM 0.5 MG TABLET PO PRN (08:00)
[2017-09-29] MEDS ORDERED: ONDANSETRON HCL INJ/PF 4 MG/2 ML SDV IV PRN (08:00)
[2017-09-29] MEDS ORDERED: OXYCODONE HCL IR 5 MG TABLET PO PRN (08:00)
[2017-09-29] MEDS ORDERED: OXYCODONE-ACETAMINOPHEN 5-325 MG TABLET PO PRN (08:00)
[2017-09-29] MEDS: AMLODIPINE BESYLATE 10 MG TABLET PO SCH (10:03)
[2017-09-29] MEDS: DULOXETINE HCL 30 MG CAPSULE.DR PO SCH (10:03)
[2017-09-29] MEDS: DOCUSATE SODIUM 100 MG CAPSULE PO SCH ×2 (10:03→17:27)
[2017-09-29] MEDS: LISINOPRIL 10 MG TABLET PO SCH (10:03)
[2017-09-29] MEDS: METOPROLOL SUCCINATE 25 MG TAB.SR.24H PO SCH (10:03)
[2017-09-29] MEDS: GUAIFENESIN 600 MG TABLET.SA PO SCH ×2 (10:03→22:14)
[2017-09-29] MEDS: ENOXAPARIN SODIUM INJ 40 MG/0.4 ML DISP.SYRIN SUBCUT SCH (10:03)
[2017-09-29] MEDS: POLYETHYLENE GLYCOL 3350 POWDER 17 GM/1 PACKET PO SCH (10:04)
[2017-09-29] MEDS: AMOXICILLIN TR/POT CLAVULANATE 500-125 MG TAB PO SCH ×2 (15:21→22:14)
[2017-09-29] MEDS: GABAPENTIN 300 MG CAPSULE PO SCH ×2 (15:21→22:14)
[2017-09-29 15:29] LABS: ANION GAP 12 (5-19); BLOOD UREA NITROGEN 19 mg/dL (7-20); CALCIUM 8.4 mg/dL (8.4-10.2); CARBON DIOXIDE 24 mmol/L (22-30); CHLORIDE 106 mmol/L (98-107); CREATININE RESULT 0.83 mg/dL (0.52-1.25); GLUCOSE 131 mg/dL (75-110); SODIUM 141.5 mmol/L (137-145)
[2017-09-29 15:44] LABS: POTASSIUM 3.8 mmol/L (3.6-5.0)
[2017-09-29] MEDS: TAMSULOSIN HCL 0.4 MG CAP.SR.24H PO SCH (17:27)
[2017-09-30] MEDS: METOCLOPRAMIDE HCL INJ/PF 10 MG/2 ML SDV IV SCH ×4 (00:17→17:41)
[2017-09-30] MEDS: IPRATROPIUM/ALBUTEROL 0.5-2.5 MG/3 ML AMPUL NEB SCH ×4 (01:46→19:54)
--- NOTE | 2017-09-30 02:41 | PDOC PROGRESS REPORT ---
Subjective Progress Note for:: 09/29/17 Subjective:: Complains of pains all over. Breathing is better ROS All organ systems evaluated and negative except as in subjective All significant laboratories and diagnostics have been reviewed Reason For Visit: SEPSIS,PNEUMONIA Physical Exam Vital Signs: Temp Pulse Resp BP Pulse Ox 98.4 F 69 16 158/66 H 96 09/28/17 23:09 09/29/17 02:00 09/29/17 01:59 09/28/17 23:09 09/29/17 01:59 Intake & Output 09/27/17 09/28/17 09/29/17 06:59 06:59 06:59 Intake Total 2323 1699 1660 Balance 2323 1699 1660 Weight 99.7 kg 98.4 kg General appearance: PRESENT: no acute distress, cooperative, obese Head exam: PRESENT: atraumatic, normocephalic Eye exam: PRESENT: EOMI, PERRLA Mouth exam: PRESENT: moist, neck supple Neck exam: PRESENT: full ROM. ABSENT: JVD, tenderness Respiratory exam: PRESENT: clear to auscultation melvin Cardiovascular exam: PRESENT: RRR. ABSENT: diastolic murmur, systolic murmur Vascular exam: PRESENT: normal capillary refill GI/Abdominal exam: PRESENT: normal bowel sounds, soft. ABSENT: tenderness Extremities exam: PRESENT: joint swelling. ABSENT: pedal edema Musculoskeletal exam: PRESENT: full ROM Neurological exam: PRESENT: alert, oriented to person, oriented to place, oriented to time Psychiatric exam: PRESENT: depressed Results Laboratory Results: 09/28/17 04:17 09/28/17 04:17 09/28/17 09/28/17 04:17 04:17 WBC 8.4 RBC 4.19 L Hgb 11.3 L Hct 33.0 L MCV 79 L MCH 27.0 MCHC 34.3 RDW 16.8 H Plt Count 259 Seg Neutrophils % 89.8 H Lymphocytes % 6.2 L Monocytes % 3.9 Eosinophils % 0.0 Basophils % 0.1 Absolute Neutrophils 7.6 Absolute Lymphocytes 0.5 Absolute Monocytes 0.3 Absolute Eosinophils 0.0 Absolute Basophils 0.0 Sodium 143.7 Potassium 3.5 L Chloride 103 Carbon Dioxide 28 Anion Gap 13 BUN 18 Creatinine 0.75 Est GFR ( Amer) > 60 Est GFR (Non-Af Amer) > 60 Glucose 185 H Calcium 9.1 Magnesium 2.2 Impressions: KUB X-Ray 09/26/17 16:40 IMPRESSION: NG tube in the stomach as described. Abdomen/Pelvis CT 09/27/17 00:00 IMPRESSION: No acute process is seen in the abdomen or pelvis. Findings as described. Chest X-Ray 09/27/17 00:00 IMPRESSION: There appears to be a limited left lower lobe pneumonia. Assessment & Plan - Diagnosis (1) Constipation Qualifiers: Constipation type: drug induced constipation Qualified Code(s): K59.03 - Drug induced constipation Is this a current diagnosis for this admission?: Yes Plan: Cotninue current treatment (2) Multifocal pneumonia Is this a current diagnosis for this admission?: Yes Plan: Discontinue zosyn and chnage to augmentin (3) Sepsis Qualifiers: Sepsis type: sepsis due to unspecified organism Qualified Code(s): A41.9 - Sepsis, unspecified organism Is this a current diagnosis for this admission?: Yes Plan: Likely due to pneumonic process. Resolved (4) Nausea & vomiting Qualifiers: Vomiting type: unspecified Vomiting Intractability: non-intractable Qualified Code(s): R11.2 - Nausea with vomiting, unspecified Is this a current diagnosis for this admission?: Yes Plan: Likely due to diabetic gastroparesis. 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 (6) Diabetes mellitus Qualifiers: Diabetes mellitus type: type 2 Diabetes mellitus complication status: with neurologic complications Diabetes mellitus complication detail: with autonomic neuropathy Diabetes mellitus senior living insulin use: without senior living use Qualified Code(s): E11.43 - Type 2 diabetes mellitus with diabetic autonomic (poly)neuropathy Is this a current diagnosis for this admission?: Yes Plan: Continue present management (7) Acute hypoxemic respiratory failure Is this a current diagnosis for this admission?: Yes Plan: Improving. (8) Hypertension Qualifiers: Hypertension type: essential hypertension Qualified Code(s): I10 - Essential (primary) hypertension Is this a current diagnosis for this admission?: Yes Plan: Continue present treatment since improved (9) Elevated brain natriuretic peptide (BNP) level Is this a current diagnosis for this admission?: Yes Plan: Awaiting results of echocardiogram. Improved with BP control and one time dose of lasix IV. (10) Hypokalemia Is this a current diagnosis for this admission?: Yes Plan: Replace po and trend - Time Time Spent with patient: 15-24 minutes Medications reviewed and adjusted accordingly: Yes Anticipated discharge: Home with Homehealth Within: within 48 hours - Inpatient Certification Based on my medical assessment, after consideration of the patient's comorbidities, presenting symptoms, or acuity I expect that the services needed warrant INPATIENT care.: Yes Medical Necessity: Need Close Monitoring Due to Risk of Patient Decompensation, Need for Pain Control
[2017-09-30] MEDS: AMOXICILLIN TR/POT CLAVULANATE 500-125 MG TAB PO SCH ×3 (05:10→23:01)
[2017-09-30] MEDS: GABAPENTIN 300 MG CAPSULE PO SCH ×3 (05:10→23:00)
[2017-09-30] MEDS: HYDRALAZINE HCL 25 MG TABLET PO SCH ×3 (05:11→23:02)
[2017-09-30] MEDS: GUAIFENESIN 600 MG TABLET.SA PO SCH ×2 (10:40→23:02)
[2017-09-30] MEDS: LISINOPRIL 10 MG TABLET PO SCH (10:40)
[2017-09-30] MEDS: AMLODIPINE BESYLATE 10 MG TABLET PO SCH (10:41)
[2017-09-30] MEDS: ENOXAPARIN SODIUM INJ 40 MG/0.4 ML DISP.SYRIN SUBCUT SCH (10:41)
[2017-09-30] MEDS: DULOXETINE HCL 30 MG CAPSULE.DR PO SCH (10:41)
[2017-09-30] MEDS: METOPROLOL SUCCINATE 25 MG TAB.SR.24H PO SCH (10:41)
[2017-09-30] MEDS: POLYETHYLENE GLYCOL 3350 POWDER 17 GM/1 PACKET PO SCH (10:51)
[2017-09-30] MEDS: DOCUSATE SODIUM 100 MG CAPSULE PO SCH ×2 (10:51→17:41)
--- NOTE | 2017-09-30 11:12 | PDOC PROGRESS REPORT ---
Subjective Progress Note for:: 09/30/17 Subjective:: Feeling better. Patient denies nausea, vomiting or constipation. Currently getting physical therapy. ROS All organ systems evaluated and negative except as in subjective All significant laboratories and diagnostics have been reviewed Reason For Visit: SEPSIS,PNEUMONIA Physical Exam Vital Signs: Temp Pulse Resp BP Pulse Ox 97.9 F 67 16 147/59 H 90 L 09/29/17 15:25 09/30/17 02:00 09/30/17 01:46 09/29/17 15:25 09/30/17 01:46 Intake & Output 09/28/17 09/29/17 09/30/17 06:59 06:59 06:59 Intake Total 1699 2828 1479 Balance 1699 2828 1479 Weight 98.4 kg 98.6 kg 97.3 kg General appearance: PRESENT: no acute distress, cooperative, obese Head exam: PRESENT: atraumatic, normocephalic Eye exam: PRESENT: EOMI, PERRLA Ear exam: PRESENT: normal external ear exam Mouth exam: PRESENT: moist Neck exam: PRESENT: full ROM. ABSENT: JVD, meningismus, tenderness Respiratory exam: PRESENT: clear to auscultation melvin Cardiovascular exam: PRESENT: RRR. ABSENT: diastolic murmur, systolic murmur Vascular exam: PRESENT: normal capillary refill GI/Abdominal exam: PRESENT: normal bowel sounds, soft. ABSENT: ascites, tenderness Extremities exam: ABSENT: joint swelling, pedal edema Musculoskeletal exam: PRESENT: full ROM Psychiatric exam: PRESENT: appropriate affect, normal mood Skin exam: PRESENT: normal color Results Laboratory Results: 09/28/17 04:17 09/29/17 14:34 09/29/17 14:34 Sodium 141.5 Potassium 3.8 D Chloride 106 Carbon Dioxide 24 Anion Gap 12 BUN 19 Creatinine 0.83 Est GFR ( Amer) > 60 Est GFR (Non-Af Amer) > 60 Glucose 131 H Calcium 8.4 09/29/17 04:33 NT-Pro-B Natriuret Pep 3040 H Impressions: KUB X-Ray 09/26/17 16:40 IMPRESSION: NG tube in the stomach as described. Abdomen/Pelvis CT 09/27/17 00:00 IMPRESSION: No acute process is seen in the abdomen or pelvis. Findings as described. Chest X-Ray 09/27/17 00:00 IMPRESSION: There appears to be a limited left lower lobe pneumonia. Assessment & Plan - Diagnosis (1) Constipation Qualifiers: Constipation type: drug induced constipation Qualified Code(s): K59.03 - Drug induced constipation Is this a current diagnosis for this admission?: Yes Plan: Relates at had been having bowel movement. Continue present management (2) Multifocal pneumonia Is this a current diagnosis for this admission?: Yes Plan: Resolving. Continue Augmentin (3) Sepsis Qualifiers: Sepsis type: sepsis due to unspecified organism Qualified Code(s): A41.9 - Sepsis, unspecified organism Is this a current diagnosis for this admission?: Yes Plan: Likely due to pneumonic process. Resolved (4) Nausea & vomiting Qualifiers: Vomiting type: unspecified Vomiting Intractability: non-intractable Qualified Code(s): R11.2 - Nausea with vomiting, unspecified Is this a current diagnosis for this admission?: Yes Plan: Likely due to diabetic gastroparesis. 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 Resolved (8) Hypertension Qualifiers: Hypertension type: essential hypertension Qualified Code(s): I10 - Essential (primary) hypertension Is this a current diagnosis for this admission?: Yes Plan: Continue present treatment since improved (9) Elevated brain natriuretic peptide (BNP) level Is this a current diagnosis for this admission?: Yes Plan: Awaiting results of echocardiogram. Since suspect acute diastolic component will proceed with BP control . IV Lasix administered 1 (10) Hypokalemia Is this a current diagnosis for this admission?: Yes Plan: Replace. Trend (11) Debility Is this a current diagnosis for this admission?: Yes Plan: Patient getting physical therapy. Will consult case management since appears the patient may need a Jesus lift - Time Time Spent with patient: 15-24 minutes Medications reviewed and adjusted accordingly: Yes Anticipated discharge: Home with Homehealth Within: within 48 hours - Inpatient Certification Based on my medical assessment, after consideration of the patient's comorbidities, presenting symptoms, or acuity I expect that the services needed warrant INPATIENT care.: Yes I certify that my determination is in accordance with my understanding of Medicare's requirements for reasonable and necessary INPATIENT services [42 CFR 412.3e].: Yes Medical Necessity: Need Close Monitoring Due to Risk of Patient Decompensation
--- NOTE | 2017-09-30 12:10 | XCELERA REPORT ---
[address] [address] Transthoracic Echocardiogram Report Name: LIBERTY TIRADO Age: 89 yrs Gender: Male : 1925 Patient Status: Inpatient Patient Location: [address] [place], [place] [address] Study Date: 09/29/2017 01:14 PM Height: 72 in Weight: 216 lb BSA: 2.2 m2 Procedure: A two-dimensional transthoracic echocardiogram with color flow and Doppler was performed. The study was technically limited with all images being suboptimal in quality. Reason For Study: elevated bnp/ / CHF History: elevated bnp/ / CHF. Ordering Physician: KENDALL NEVAREZ Performed By: Marilynn Adair Interpretation Summary The left ventricle is normal in size. There is mild concentric left ventricular hypertrophy. LV EF is > than 55% Left ventricular systolic function is normal. Doppler measurements suggest impaired left ventricular relaxation, which is associated with grade I/IV or mild diastolic dysfunction The left ventricular wall motion is normal. There is no thrombus. The right ventricle is not well visualized secondary to technical limitations The left atrial size is normal. There is no evidence of mitral valve prolapse. There is no vegetation seen on the mitral valve. There is no mitral valve stenosis. There is a trace amount of mitral regurgitation There is no aortic valve stenosis There is no LVOT obstruction. No aortic regurgitation is present. There is no tricuspid stenosis. No tricuspid regurgitation. Unable to calcul;ate RVSP due to insufficient TR jet. There is no pericardial effusion. MMode/2D Measurements & Calculations RVDd: 3.6 cm LVIDd: 3.3 cm FS: 26.9 % Ao root diam: 3.4 cm IVSd: 1.3 cm LVIDs: 2.4 cm EDV(Teich): 43.3 ml LVPWd: 1.3 cm ESV(Teich): 20.0 ml Ao root area: 9.3 cm2 EF(Teich): 53.7 % LA dimension: 2.3 cm Doppler Measurements & Calculations MV E max ross: MV P1/2t max ross: Ao V2 max: LV V1 max P.1 cm/sec 70.1 cm/sec 146.6 cm/sec 3.6 mmHg MV A max ross: MV P1/2t: 107.7 msec Ao max PG: LV V1 max: 94.8 cm/sec 8.6 mmHg 94.8 cm/sec MV E/A: 0.74 MVA(P1/2t): 2.0 cm2 MV dec slope: 190.5 cm/sec2 PA V2 max: 102.7 cm/sec PA max P.2 mmHg Left Ventricle The left ventricle is normal in size. There is mild concentric left ventricular hypertrophy. LV EF is > than 55%. Left ventricular systolic function is normal. Doppler measurements suggest impaired left ventricular relaxation, which is associated with grade I/IV or mild diastolic dysfunction. The left ventricular wall motion is normal. There is no thrombus. Right Ventricle The right ventricle is not well visualized secondary to technical limitations. Atria The right atrium is normal. The left atrial size is normal. Mitral Valve There is no evidence of mitral valve prolapse. There is no vegetation seen on the mitral valve. There is no mitral valve stenosis. There is a trace amount of mitral regurgitation. Aortic Valve There is no aortic valvular vegetation. There is no aortic valve stenosis. There is no LVOT obstruction. No aortic regurgitation is present. Tricuspid Valve There is no tricuspid stenosis. No tricuspid regurgitation. Unable to calcul;ate RVSP due to insufficient TR jet. Pulmonic Valve There is no pulmonic valvular stenosis. There is no pulmonic valvular regurgitation. Great Vessels The aortic root is normal size. Effusions There is no pericardial effusion. : KENDALL NEVAREZ > Cyn Handley
[2017-09-30] MEDS: INSULIN LISPRO 100 UNIT/ML 3 ML VIAL SUBCUT PRN ×2 (13:39→23:03)
[2017-09-30] MEDS: TAMSULOSIN HCL 0.4 MG CAP.SR.24H PO SCH (17:41)
[2017-10-01] MEDS: METOCLOPRAMIDE HCL INJ/PF 10 MG/2 ML SDV IV SCH ×4 (01:39→18:34)
[2017-10-01] MEDS: IPRATROPIUM/ALBUTEROL 0.5-2.5 MG/3 ML AMPUL NEB SCH (01:46)
[2017-10-01 04:58] LABS: ABSOLUTE EOSINOPHILS # (AUTO) 0.2 10^3/uL (0.0-0.6); ABSOLUTE LYMPHOCYTES (AUTO) 2.1 10^3/uL (0.5-4.7); ABSOLUTE NEUT (AUTO) 7.1 10^3/uL (1.7-8.2); BASOPHILS % (AUTO) 0.1 % (0-2); HEMATOCRIT 32.3 % (37.9-51.0); HEMOGLOBIN 10.6 g/dL (13.5-17.0); HGB HCT DIFFERENCE -0.5; MEAN CORPUSCULAR HGB CONC 32.9 g/dL (32.0-36.0); MEAN CORPUSCULAR VOLUME 79 fl (80-97); RED BLOOD COUNT 4.08 10^6/uL (4.35-5.55); RED CELL DISTRIBUTION WIDTH 16.4 % (11.5-14.0); SEGMENTED NEUTROPHILS % (AUTO) 67.9 % (42-78); WHITE BLOOD COUNT 10.4 10^3/uL (4.0-10.5)
[2017-10-01 05:22] LABS: ANION GAP 10 (5-19); BLOOD UREA NITROGEN 16 mg/dL (7-20); CALCIUM 8.5 mg/dL (8.4-10.2); CARBON DIOXIDE 25 mmol/L (22-30); CHLORIDE 106 mmol/L (98-107); CREATININE RESULT 0.69 mg/dL (0.52-1.25); GLUCOSE 109 mg/dL (75-110); POTASSIUM 3.1 mmol/L (3.6-5.0); SODIUM 141.3 mmol/L (137-145)
[2017-10-01] MEDS: AMOXICILLIN TR/POT CLAVULANATE 500-125 MG TAB PO SCH ×3 (05:59→21:30)
[2017-10-01] MEDS: HYDRALAZINE HCL 25 MG TABLET PO SCH ×3 (06:00→21:31)
[2017-10-01] MEDS: GABAPENTIN 300 MG CAPSULE PO SCH ×3 (06:00→21:31)
[2017-10-01] MEDS ORDERED: POTASSIUM CHLORIDE 10 MEQ TABLET.SA PO ONE (08:00)
[2017-10-01] MEDS: METOPROLOL SUCCINATE 25 MG TAB.SR.24H PO SCH (08:24)
[2017-10-01] MEDS: DULOXETINE HCL 30 MG CAPSULE.DR PO SCH (08:24)
[2017-10-01] MEDS: GUAIFENESIN 600 MG TABLET.SA PO SCH ×2 (08:25→21:30)
[2017-10-01] MEDS: LISINOPRIL 10 MG TABLET PO SCH (08:25)
[2017-10-01] MEDS: AMLODIPINE BESYLATE 10 MG TABLET PO SCH (08:25)
[2017-10-01] MEDS: DOCUSATE SODIUM 100 MG CAPSULE PO SCH ×2 (08:25→18:34)
[2017-10-01] MEDS: POLYETHYLENE GLYCOL 3350 POWDER 17 GM/1 PACKET PO SCH (08:25)
[2017-10-01] MEDS: ENOXAPARIN SODIUM INJ 40 MG/0.4 ML DISP.SYRIN SUBCUT SCH (08:26)
[2017-10-01] MEDS ORDERED: FUROSEMIDE 20 MG TABLET PO ONE (12:30)
[2017-10-01] MEDS ORDERED: POTASSIUM CHLORIDE 10 MEQ TABLET.SA PO SCH (14:00)
--- NOTE | 2017-10-01 15:18 | PDOC PROGRESS REPORT ---
Subjective Progress Note for:: 10/01/17 Subjective:: Patient difficult to arouse and sleeping ROS All organ systems evaluated and negative except as in subjective All significant laboratories and diagnostics have been reviewed Reason For Visit: SEPSIS,PNEUMONIA Physical Exam Vital Signs: Temp Pulse Resp BP Pulse Ox 97.5 F 71 21 H 131/58 H 98 10/01/17 03:41 10/01/17 03:41 10/01/17 03:41 10/01/17 03:41 10/01/17 03:41 Intake & Output 09/29/17 09/30/17 10/01/17 06:59 06:59 06:59 Intake Total 2828 1479 1190 Balance 2828 1479 1190 Weight 98.6 kg 97.3 kg 97.5 kg General appearance: PRESENT: no acute distress, obese Head exam: PRESENT: atraumatic, normocephalic Eye exam: PRESENT: conjunctiva pink Ear exam: PRESENT: normal external ear exam Neck exam: ABSENT: JVD, tenderness Respiratory exam: PRESENT: rhonchi, other - Adequate movement of air bilaterally Vascular exam: PRESENT: normal capillary refill GI/Abdominal exam: PRESENT: normal bowel sounds. ABSENT: soft, tenderness Extremities exam: ABSENT: joint swelling, pedal edema Neurological exam: PRESENT: other Results Laboratory Results: 09/29/17 04:33 NT-Pro-B Natriuret Pep 3040 H Impressions: KUB X-Ray 09/26/17 16:40 IMPRESSION: NG tube in the stomach as described. Abdomen/Pelvis CT 09/27/17 00:00 IMPRESSION: No acute process is seen in the abdomen or pelvis. Findings as described. Chest X-Ray 09/27/17 00:00 IMPRESSION: There appears to be a limited left lower lobe pneumonia. Assessment & Plan - Diagnosis (1) Constipation Qualifiers: Constipation type: drug induced constipation Qualified Code(s): K59.03 - Drug induced constipation Is this a current diagnosis for this admission?: Yes Plan: Continue present management (2) Multifocal pneumonia Is this a current diagnosis for this admission?: Yes Plan: Resolving. Continue Augmentin (3) Sepsis Qualifiers: Sepsis type: sepsis due to unspecified organism Qualified Code(s): A41.9 - Sepsis, unspecified organism Is this a current diagnosis for this admission?: Yes Plan: Likely due to pneumonic process. Resolved (4) Nausea & vomiting Qualifiers: Vomiting type: unspecified Vomiting Intractability: non-intractable Qualified Code(s): R11.2 - Nausea with vomiting, unspecified Is this a current diagnosis for this admission?: Yes Plan: Likely due to diabetic gastroparesis. 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 Stable (6) Diabetes mellitus Qualifiers: Diabetes mellitus type: type 2 Diabetes mellitus complication status: with neurologic complications Diabetes mellitus complication detail: with autonomic neuropathy Diabetes mellitus dedicated intermodal truck driver insulin use: without dedicated intermodal truck driver use Qualified Code(s): E11.43 - Type 2 diabetes mellitus with diabetic autonomic (poly)neuropathy Is this a current diagnosis for this admission?: Yes Plan: Continue present management (7) Acute hypoxemic respiratory failure Is this a current diagnosis for this admission?: Yes Plan: Due to pneumonic process. Resolved (8) Hypertension Qualifiers: Hypertension type: essential hypertension Qualified Code(s): I10 - Essential (primary) hypertension Is this a current diagnosis for this admission?: Yes Plan: Increase lisinopril and continue Norvasc at current dose (9) Elevated brain natriuretic peptide (BNP) level Is this a current diagnosis for this admission?: Yes Plan: Due to diastolic dysfunction with associated heart failure. Continue blood pressure management and add low-dose Lasix (10) Hypokalemia Is this a current diagnosis for this admission?: Yes Plan: Replace po and trend. PLace on magoxide. (11) Debility Is this a current diagnosis for this admission?: Yes Plan: Continue physical therapy - Time Time Spent with patient: 15-24 minutes Medications reviewed and adjusted accordingly: Yes Anticipated discharge: Home with Homehealth Within: within 48 hours - Inpatient Certification Based on my medical assessment, after consideration of the patient's comorbidities, presenting symptoms, or acuity I expect that the services needed warrant INPATIENT care.: Yes I certify that my determination is in accordance with my understanding of Medicare's requirements for reasonable and necessary INPATIENT services [42 CFR 412.3e].: Yes Medical Necessity: Need Close Monitoring Due to Risk of Patient Decompensation
[2017-10-01] MEDS: POTASSIUM CHLORIDE 10 MEQ TABLET.SA PO SCH (18:33)
[2017-10-01] MEDS: MAGNESIUM OXIDE 400 MG TABLET PO SCH (18:34)
[2017-10-01] MEDS: TAMSULOSIN HCL 0.4 MG CAP.SR.24H PO SCH (18:34)
[2017-10-02] MEDS: METOCLOPRAMIDE HCL INJ/PF 10 MG/2 ML SDV IV SCH ×3 (00:12→14:00)
[2017-10-02] MEDS: POTASSIUM CHLORIDE 10 MEQ TABLET.SA PO SCH ×4 (00:12→21:44)
[2017-10-02 05:30] LABS: ANION GAP 8 (5-19); BLOOD UREA NITROGEN 13 mg/dL (7-20); CALCIUM 8.9 mg/dL (8.4-10.2); CARBON DIOXIDE 23 mmol/L (22-30); CHLORIDE 109 mmol/L (98-107); CREATININE RESULT 0.64 mg/dL (0.52-1.25); GLUCOSE 124 mg/dL (75-110); MAGNESIUM 2.1 mg/dL (1.6-2.3); POTASSIUM 3.7 mmol/L (3.6-5.0); SODIUM 139.9 mmol/L (137-145)
[2017-10-02] MEDS: AMOXICILLIN TR/POT CLAVULANATE 500-125 MG TAB PO SCH ×2 (06:27→14:00)
[2017-10-02] MEDS: GABAPENTIN 300 MG CAPSULE PO SCH ×3 (06:27→21:44)
[2017-10-02] MEDS: HYDRALAZINE HCL 25 MG TABLET PO SCH ×3 (06:29→21:43)
[2017-10-02] MEDS ORDERED: OXYCODONE HCL IR 5 MG TABLET PO PRN ×2 (08:05→14:21)
[2017-10-02] MEDS ORDERED: OXYCODONE-ACETAMINOPHEN 5-325 MG TABLET PO PRN (08:05)
[2017-10-02] MEDS: ACETAMINOPHEN 325 MG TABLET PO PRN ×2 (09:11→14:37)
[2017-10-02] MEDS: AMLODIPINE BESYLATE 10 MG TABLET PO SCH (09:12)
[2017-10-02] MEDS: GUAIFENESIN 600 MG TABLET.SA PO SCH ×2 (09:13→21:44)
[2017-10-02] MEDS: MAGNESIUM OXIDE 400 MG TABLET PO SCH ×2 (09:13→18:37)
[2017-10-02] MEDS: LISINOPRIL 10 MG TABLET PO SCH (09:13)
[2017-10-02] MEDS: METOPROLOL SUCCINATE 25 MG TAB.SR.24H PO SCH (09:13)
[2017-10-02] MEDS: DULOXETINE HCL 30 MG CAPSULE.DR PO SCH (09:13)
[2017-10-02] MEDS: DOCUSATE SODIUM 100 MG CAPSULE PO SCH ×2 (09:14→18:37)
[2017-10-02] MEDS: FUROSEMIDE 20 MG TABLET PO SCH (09:14)
[2017-10-02] MEDS: ENOXAPARIN SODIUM INJ 40 MG/0.4 ML DISP.SYRIN SUBCUT SCH (09:17)
[2017-10-02] MEDS: POLYETHYLENE GLYCOL 3350 POWDER 17 GM/1 PACKET PO SCH (09:18)
[2017-10-02] MEDS ORDERED: POTASSIUM CHLORIDE 10 MEQ TABLET.SA PO SCH (10:00)
--- NOTE | 2017-10-02 14:32 | PDOC PROGRESS REPORT ---
Subjective Progress Note for:: 10/02/17 Subjective:: Patient relates that he is not doing well today because he is having pain mostly localized to his shoulders. Has been able to move his bowels ROS All organ systems evaluated and negative except as in subjective All significant laboratories and diagnostics have been reviewed Reason For Visit: SEPSIS,PNEUMONIA Physical Exam Vital Signs: Temp Pulse Resp BP Pulse Ox 97.7 F 71 17 122/45 L 97 10/02/17 03:12 10/02/17 03:12 10/02/17 03:12 10/02/17 03:12 10/02/17 03:12 Intake & Output 10/01/17 10/02/17 10/03/17 06:59 06:59 06:59 Intake Total 1555 2894 Balance 1555 2894 Weight 97.5 kg 97.9 kg General appearance: PRESENT: no acute distress, cooperative, obese Head exam: PRESENT: atraumatic, normocephalic Eye exam: PRESENT: EOMI, PERRLA Ear exam: PRESENT: normal external ear exam Mouth exam: PRESENT: moist Neck exam: PRESENT: full ROM. ABSENT: JVD, tenderness Respiratory exam: PRESENT: rhonchi, unlabored. ABSENT: wheezes Cardiovascular exam: PRESENT: RRR. ABSENT: diastolic murmur, systolic murmur Vascular exam: PRESENT: normal capillary refill GI/Abdominal exam: PRESENT: normal bowel sounds, soft. ABSENT: guarding, tenderness Extremities exam: PRESENT: pedal edema. ABSENT: joint swelling Neurological exam: PRESENT: alert, oriented to person, oriented to place Psychiatric exam: PRESENT: depressed Skin exam: PRESENT: normal color Results Laboratory Results: 10/01/17 04:27 10/02/17 04:24 10/02/17 04:24 Sodium 139.9 Potassium 3.7 Chloride 109 H Carbon Dioxide 23 Anion Gap 8 BUN 13 Creatinine 0.64 Est GFR ( Amer) > 60 Est GFR (Non-Af Amer) > 60 Glucose 124 H Calcium 8.9 Magnesium 2.1 09/29/17 04:33 NT-Pro-B Natriuret Pep 3040 H Impressions: KUB X-Ray 09/26/17 16:40 IMPRESSION: NG tube in the stomach as described. Abdomen/Pelvis CT 09/27/17 00:00 IMPRESSION: No acute process is seen in the abdomen or pelvis. Findings as described. Chest X-Ray 09/27/17 00:00 IMPRESSION: There appears to be a limited left lower lobe pneumonia. Assessment & Plan - Diagnosis (1) Constipation Qualifiers: Constipation type: drug induced constipation Qualified Code(s): K59.03 - Drug induced constipation Is this a current diagnosis for this admission?: Yes Plan: Discontinue Reglan and otherwise continue present management (2) Multifocal pneumonia Is this a current diagnosis for this admission?: Yes Plan: Discontinue antibiotic. Fully treated for 7 days (3) Sepsis Qualifiers: Sepsis type: sepsis due to unspecified organism Qualified Code(s): A41.9 - Sepsis, unspecified organism Is this a current diagnosis for this admission?: Yes Plan: Likely due to pneumonic process. Resolved (4) Nausea & vomiting Qualifiers: Vomiting type: unspecified Vomiting Intractability: non-intractable Qualified Code(s): R11.2 - Nausea with vomiting, unspecified Is this a current diagnosis for this admission?: Yes Plan: Likely due to diabetic gastroparesis. Resolved. Continue Reglan and placed on p.o. 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 Resolved (8) Hypertension Qualifiers: Hypertension type: essential hypertension Qualified Code(s): I10 - Essential (primary) hypertension Is this a current diagnosis for this admission?: Yes Plan: Continue current management (9) Elevated brain natriuretic peptide (BNP) level Is this a current diagnosis for this admission?: Yes Plan: Due to diastolic dysfunction with associated heart failure. Continue blood pressure management and low-dose Lasix (10) Hypokalemia Is this a current diagnosis for this admission?: Yes Plan: Continue replacing orally and to trend. 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 Is this a current diagnosis for this admission?: Yes Plan: Continue current treatment for blood pressure management and diuresis - Time Time Spent with patient: 15-24 minutes Medications reviewed and adjusted accordingly: Yes Anticipated discharge: Home with Homehealth Within: within 48 hours - Inpatient Certification Based on my medical assessment, after consideration of the patient's comorbidities, presenting symptoms, or acuity I expect that the services needed warrant INPATIENT care.: Yes I certify that my determination is in accordance with my understanding of Medicare's requirements for reasonable and necessary INPATIENT services [42 CFR 412.3e].: Yes Medical Necessity: Need Close Monitoring Due to Risk of Patient Decompensation
[2017-10-02] MEDS: ALPRAZOLAM 0.5 MG TABLET PO PRN (18:36)
[2017-10-02] MEDS: METOCLOPRAMIDE HCL 10 MG TABLET PO SCH ×2 (18:36→21:43)
[2017-10-02] MEDS: TAMSULOSIN HCL 0.4 MG CAP.SR.24H PO SCH (18:37)
[2017-10-02] MEDS: MORPHINE SULFATE SR 15 MG TABLET PO SCH (21:46)
[2017-10-03 05:23] LABS: ABSOLUTE EOSINOPHILS # (AUTO) 0.3 10^3/uL (0.0-0.6); ABSOLUTE LYMPHOCYTES (AUTO) 2.4 10^3/uL (0.5-4.7); ABSOLUTE MONOCYTES (AUTO) 1.1 10^3/uL (0.1-1.4); ABSOLUTE NEUT (AUTO) 6.1 10^3/uL (1.7-8.2); BASOPHILS % (AUTO) 0.1 % (0-2); HEMATOCRIT 32.9 % (37.9-51.0); HEMOGLOBIN 10.9 g/dL (13.5-17.0); HGB HCT DIFFERENCE -0.2; LYMPHOCYTES % (AUTO) 24.5 % (13-45); MEAN CORPUSCULAR HEMOGLOBIN 26.8 pg (27.0-33.4); MEAN CORPUSCULAR HGB CONC 33.2 g/dL (32.0-36.0); MEAN CORPUSCULAR VOLUME 81 fl (80-97); MONOCYTES % (AUTO) 11.4 % (3-13); RED BLOOD COUNT 4.07 10^6/uL (4.35-5.55); RED CELL DISTRIBUTION WIDTH 16.5 % (11.5-14.0)
[2017-10-03 05:44] LABS: ANION GAP 9 (5-19); BLOOD UREA NITROGEN 10 mg/dL (7-20); CALCIUM 8.7 mg/dL (8.4-10.2); CARBON DIOXIDE 22 mmol/L (22-30); CHLORIDE 112 mmol/L (98-107); CREATININE RESULT 0.68 mg/dL (0.52-1.25); GLUCOSE 107 mg/dL (75-110); MAGNESIUM 2.2 mg/dL (1.6-2.3); POTASSIUM 4.8 mmol/L (3.6-5.0); SODIUM 143.1 mmol/L (137-145)
[2017-10-03] MEDS: HYDRALAZINE HCL 25 MG TABLET PO SCH ×3 (05:45→22:43)
[2017-10-03] MEDS: GABAPENTIN 300 MG CAPSULE PO SCH ×3 (05:45→22:44)
[2017-10-03] MEDS: METOCLOPRAMIDE HCL 10 MG TABLET PO SCH ×2 (08:10→12:25)
[2017-10-03] MEDS: POLYETHYLENE GLYCOL 3350 POWDER 17 GM/1 PACKET PO SCH (09:59)
[2017-10-03] MEDS: METOPROLOL SUCCINATE 25 MG TAB.SR.24H PO SCH (09:59)
[2017-10-03] MEDS: FUROSEMIDE 20 MG TABLET PO SCH (10:00)
[2017-10-03] MEDS: MORPHINE SULFATE SR 15 MG TABLET PO SCH ×2 (10:00→22:43)
[2017-10-03] MEDS: MAGNESIUM OXIDE 400 MG TABLET PO SCH ×2 (10:01→18:31)
[2017-10-03] MEDS: AMLODIPINE BESYLATE 10 MG TABLET PO SCH (10:01)
[2017-10-03] MEDS: GUAIFENESIN 600 MG TABLET.SA PO SCH ×2 (10:01→22:44)
[2017-10-03] MEDS: DULOXETINE HCL 30 MG CAPSULE.DR PO SCH (10:02)
[2017-10-03] MEDS: DOCUSATE SODIUM 100 MG CAPSULE PO SCH ×2 (10:02→18:32)
[2017-10-03] MEDS: LISINOPRIL 10 MG TABLET PO SCH (10:03)
[2017-10-03] MEDS: ALPRAZOLAM 0.5 MG TABLET PO PRN (10:03)
[2017-10-03] MEDS: ENOXAPARIN SODIUM INJ 40 MG/0.4 ML DISP.SYRIN SUBCUT SCH (10:04)
[2017-10-03] MEDS: OXYCODONE HCL IR 5 MG TABLET PO PRN ×2 (13:29→18:32)
--- NOTE | 2017-10-03 14:22 | RADIOLOGY REPORT (SQ) ---
EXAM DESCRIPTION: CHEST SINGLE VIEW COMPLETED DATE/TIME: 10/03/2017 1:46 pm REASON FOR STUDY: COUGH COMPARISON: 09/27/2017 EXAM PARAMETERS: NUMBER OF VIEWS: One view. TECHNIQUE: Single frontal radiographic view of the chest acquired. RADIATION DOSE: NA LIMITATIONS: None. FINDINGS: LUNGS AND PLEURA: Improved aeration in the left lung base, no residual consolidation. Min imal chronic interstitial markings. No significant pleural effusion. No pneumothorax. MEDIASTINUM AND HILAR STRUCTURES: Stable. HEART AND VASCULAR STRUCTURES: Stable. BONES: No acute findings. HARDWARE: None in the chest. OTHER: No other significant finding. IMPRESSION: Improved aeration in the left lung base, no residual consolidation. Minimal chronic int erstitial markings. TECHNICAL DOCUMENTATION: JOB ID: [id number] [place]-72 2010 [employer]- All Rights Reserved
--- NOTE | 2017-10-03 15:50 | PDOC PROGRESS REPORT ---
Subjective Progress Note for:: 10/03/17 Subjective:: Patient complains of having cough. Pain in the shoulders is better today ROS All organ systems evaluated and negative except as in subjective All significant laboratories and diagnostics have been reviewed Reason For Visit: SEPSIS,PNEUMONIA Physical Exam Vital Signs: Temp Pulse Resp BP Pulse Ox 98.1 F 74 18 146/66 H 86 L 10/03/17 11:31 10/03/17 14:00 10/03/17 11:31 10/03/17 11:31 10/03/17 11:31 Intake & Output 10/02/17 10/03/17 10/04/17 06:59 06:59 06:59 Intake Total 2894 2960 485 Balance 2894 2960 485 Weight 97.9 kg 97.1 kg General appearance: PRESENT: no acute distress, cooperative, obese Head exam: PRESENT: atraumatic, normocephalic Eye exam: PRESENT: EOMI, PERRLA Ear exam: PRESENT: normal external ear exam Mouth exam: PRESENT: moist, neck supple Neck exam: PRESENT: full ROM. ABSENT: JVD, tenderness Respiratory exam: PRESENT: other - Essentially clear to auscultation with a scattered rhonchi Cardiovascular exam: PRESENT: RRR. ABSENT: diastolic murmur, systolic murmur Vascular exam: PRESENT: normal capillary refill GI/Abdominal exam: PRESENT: normal bowel sounds, soft. ABSENT: ascites, tenderness Extremities exam: ABSENT: joint swelling, pedal edema Musculoskeletal exam: PRESENT: full ROM Neurological exam: PRESENT: alert, awake, oriented to person, oriented to place Psychiatric exam: PRESENT: depressed Results Laboratory Results: 10/03/17 04:52 10/03/17 04:52 10/03/17 10/03/17 04:52 04:52 WBC 10.0 RBC 4.07 L Hgb 10.9 L Hct 32.9 L MCV 81 MCH 26.8 L MCHC 33.2 RDW 16.5 H Plt Count 342 Seg Neutrophils % 61.0 Lymphocytes % 24.5 Monocytes % 11.4 Eosinophils % 3.0 Basophils % 0.1 Absolute Neutrophils 6.1 Absolute Lymphocytes 2.4 Absolute Monocytes 1.1 Absolute Eosinophils 0.3 Absolute Basophils 0.0 Sodium 143.1 Potassium 4.8 Chloride 112 H Carbon Dioxide 22 Anion Gap 9 BUN 10 Creatinine 0.68 Est GFR ( Amer) > 60 Est GFR (Non-Af Amer) > 60 Glucose 107 Calcium 8.7 Magnesium 2.2 09/29/17 04:33 NT-Pro-B Natriuret Pep 3040 H Impressions: KUB X-Ray 09/26/17 16:40 IMPRESSION: NG tube in the stomach as described. Abdomen/Pelvis CT 09/27/17 00:00 IMPRESSION: No acute process is seen in the abdomen or pelvis. Findings as described. Chest X-Ray 10/03/17 12:00 IMPRESSION: Improved aeration in the left lung base, no residual consolidation. Minimal chronic interstitial markings. Assessment & Plan - Diagnosis (1) Constipation Qualifiers: Constipation type: drug induced constipation Qualified Code(s): K59.03 - Drug induced constipation Is this a current diagnosis for this admission?: Yes Plan: Continue Reglan p.o. and bowel regimen (2) Multifocal pneumonia Is this a current diagnosis for this admission?: Yes Plan: Off antibiotic. Fully treated for 7 days. Order chest x-ray due to complaints of cough (3) Sepsis Qualifiers: Sepsis type: sepsis due to unspecified organism Qualified Code(s): A41.9 - Sepsis, unspecified organism Is this a current diagnosis for this admission?: Yes Plan: Likely due to pneumonic process. Resolved (4) Nausea & vomiting Qualifiers: Vomiting type: unspecified Vomiting Intractability: non-intractable Qualified Code(s): R11.2 - Nausea with vomiting, unspecified Is this a current diagnosis for this admission?: Yes Plan: Likely due to diabetic gastroparesis. Resolved. Continue Reglan p.o. 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 Contijnue MS Contin and oxycodone IR since at this point in time patient deserves palliative care. Consult case management for palliative care since patient may be better served this route on discharge (6) Diabetes mellitus Qualifiers: Diabetes mellitus type: type 2 Diabetes mellitus complication status: with neurologic complications Diabetes mellitus complication detail: with autonomic neuropathy Diabetes mellitus display manager insulin use: without longterm use Qualified Code(s): E11.43 - Type 2 diabetes mellitus with diabetic autonomic (poly)neuropathy Is this a current diagnosis for this admission?: Yes Plan: Continue present management (7) Acute hypoxemic respiratory failure Is this a current diagnosis for this admission?: Yes Plan: Due to pneumonic process. Resolved (8) Hypertension Qualifiers: Hypertension type: essential hypertension Qualified Code(s): I10 - Essential (primary) hypertension Is this a current diagnosis for this admission?: Yes Plan: Continue current management (9) Elevated brain natriuretic peptide (BNP) level Is this a current diagnosis for this admission?: Yes Plan: Due to diastolic dysfunction with associated heart failure. Continue blood pressure management and low-dose Lasix (10) Hypokalemia Is this a current diagnosis for this admission?: Yes Plan: Replaced and to discontinue oral replacement. 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 Is this a current diagnosis for this admission?: Yes Plan: Continue current treatment for blood pressure management and diuresis - Time Time Spent with patient: Less than 15 minutes Medications reviewed and adjusted accordingly: Yes Anticipated discharge: Other - Home with palliative care and home health - Inpatient Certification Based on my medical assessment, after consideration of the patient's comorbidities, presenting symptoms, or acuity I expect that the services needed warrant INPATIENT care.: Yes I certify that my determination is in accordance with my understanding of Medicare's requirements for reasonable and necessary INPATIENT services [42 CFR 412.3e].: Yes Medical Necessity: Need Close Monitoring Due to Risk of Patient Decompensation
[2017-10-03] MEDS: TAMSULOSIN HCL 0.4 MG CAP.SR.24H PO SCH (18:31)
[2017-10-04] MEDS: GABAPENTIN 300 MG CAPSULE PO SCH ×2 (05:17→13:49)
[2017-10-04] MEDS: HYDRALAZINE HCL 25 MG TABLET PO SCH ×2 (05:17→13:49)
[2017-10-04] MEDS: OXYCODONE HCL IR 5 MG TABLET PO PRN ×2 (08:06→13:50)
[2017-10-04 10:07] VITALS: BP 118/56
[2017-10-04] MEDS: METOPROLOL SUCCINATE 25 MG TAB.SR.24H PO SCH (11:10)
[2017-10-04] MEDS: MORPHINE SULFATE SR 15 MG TABLET PO SCH (11:11)
[2017-10-04] MEDS: FUROSEMIDE 20 MG TABLET PO SCH (11:11)
[2017-10-04] MEDS: GUAIFENESIN 600 MG TABLET.SA PO SCH (11:12)
[2017-10-04] MEDS: MAGNESIUM OXIDE 400 MG TABLET PO SCH (11:12)
[2017-10-04] MEDS: AMLODIPINE BESYLATE 10 MG TABLET PO SCH (11:12)
[2017-10-04] MEDS: DULOXETINE HCL 30 MG CAPSULE.DR PO SCH (11:13)
[2017-10-04] MEDS: LISINOPRIL 10 MG TABLET PO SCH (11:13)
[2017-10-04] MEDS: DOCUSATE SODIUM 100 MG CAPSULE PO SCH (11:15)
[2017-10-04] MEDS: ENOXAPARIN SODIUM INJ 40 MG/0.4 ML DISP.SYRIN SUBCUT SCH (11:15)
[2017-10-04] MEDS: POLYETHYLENE GLYCOL 3350 POWDER 17 GM/1 PACKET PO SCH (11:15)
--- NOTE | 2017-10-04 12:40 | PDOC DISCHARGE SUMMARY ---
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 Is this a current diagnosis for this admission?: Yes (5) Elevated brain natriuretic peptide (BNP) level Is this a current diagnosis for this admission?: Yes (6) Multifocal pneumonia Is this a current diagnosis for this admission?: Yes (7) Nausea & vomiting Is this a current diagnosis for this admission?: Yes (8) Sepsis Is this a current diagnosis for this admission?: Yes (9) Hypertension Is this a current diagnosis for this admission?: Yes - Additional Information Resuscitation Status: Do Not Resuscitate Home Medications: Amlodipine Besylate [Norvasc 10 mg Tablet] 10 mg PO DAILY 09/25/17 Diflunisal 500 mg PO BID 09/25/17 Docusate Sodium [Dok] 100 mg PO BID 09/25/17 Duloxetine HCl [Cymbalta] 60 mg PO DAILY 09/25/17 Gabapentin [Neurontin] 600 mg PO Q8 09/25/17 Metformin HCl [Glucophage 500 mg Tablet] 500 mg PO BID 09/25/17 Tamsulosin HCl [Flomax 0.4 mg Cap.sr] 0.4 mg PO DAILY 09/25/17 Alprazolam [Xanax 0.5 mg Tablet] 0.5 mg PO BIDP PRN #4 tablet 10/04/17 Furosemide [Lasix 20 mg Tablet] 20 mg PO DAILY tablet 10/04/17 Guaifenesin [Mucinex Sr 600 mg Tablet.sa] 600 mg PO Q12 tablet.sa 10/04/17 Lisinopril [Prinivil 10 mg Tablet] 20 mg PO DAILY #0 tablet 10/04/17 Metoprolol Succinate [Toprol Xl 25 mg Tab.sr] 25 mg PO DAILY tab.sr.24h Morphine Sulfate [Ms-Contin Sr 15 mg Tablet] 15 mg PO Q12 #4 tablet.sa 10/04/17 Tamsulosin HCl [Flomax 0.4 mg Cap.sr] 0.4 mg PO PCSUPPER cap.sr.24h 10/04/17 History of Present Illness History of Present Illness: LIBERTY TIRADO is a 89 year old male with multiple comorbidities including blindness, diabetes mellitus, neuropathy, ankylosing spondylitis, hypertension who presented with complaint of fever. Patient was found to have a fever of 102.5 at home when the EMS arrived bring them. Patient was also hypoxic with a saturation of 82% that improved to 88% on 6 L nonrebreather. Please refer to H& P dictated by Dr. Knox for complete details. Hospital Course Hospital Course: Patient was admitted and diagnosed with sepsis due to multifocal pneumonia. Patient was started on Rocephin and azithromycin for community-acquired pneumonia. There was some concern that patient may be having underlying COPD exacerbation due to his history of tobacco use. Patient was started on IV Solu- Medrol at that time. Patient did complete 7 days of antibiotics. Patient was also having some nausea and vomiting possibly due to diabetic gastroparesis. Patient was started on Reglan and this did help his symptoms. Patient has chronic pain and was started on MS Contin 15 mg p.o. twice daily along with oxycodone q. 4 as needed. Plan was for patient to go back on his Percocet on discharge but continue with MS Contin. Patient is also on gabapentin to 8 and 6 mg p.o. Patient was found to have an elevated BNP most likely due to diastolic dysfunction. Patient currently on metoprolol succinate 25 mg daily, hydralazine 25 mg 3 times daily Norvasc 10 mg daily. Patient appears to be euvolemic at this time. Patient had constipation is mostly secondary to his opiate use and inactivity. Patient was also placed on polyethylene glycol daily along with docusate. Sorbitol as needed was also being used. Patient is quite debilitated with multiple comorbidities and note that he will not improve. Patient is aware that he which is gradually getting worse at time. Patient is currently DNR and has agreed to discharge home with hospice. [facility] hospice will be attending to the patient's needs on discharge. Physical Exam Vital Signs: Temp Pulse Resp BP Pulse Ox 98.2 F 59 L 16 118/49 L 96 10/04/17 03:55 10/04/17 07:00 10/04/17 03:55 10/04/17 03:55 10/04/17 03:55 Intake & Output 10/03/17 10/04/17 10/05/17 06:59 06:59 06:59 Intake Total 2960 785 Balance 2960 785 Weight 97.1 kg 95.9 kg General appearance: PRESENT: no acute distress Head exam: PRESENT: atraumatic, normocephalic Eye exam: PRESENT: EOMI. ABSENT: scleral icterus Ear exam: PRESENT: normal external ear exam Mouth exam: PRESENT: moist Teeth exam: PRESENT: other - Dentures in place Neck exam: ABSENT: carotid bruit, JVD, lymphadenopathy, thyromegaly Respiratory exam: PRESENT: clear to auscultation melvin. ABSENT: rales, rhonchi, wheezes Cardiovascular exam: PRESENT: RRR. ABSENT: diastolic murmur, rubs, systolic murmur Pulses: PRESENT: normal dorsalis pedis pul Vascular exam: PRESENT: normal capillary refill GI/Abdominal exam: PRESENT: normal bowel sounds, soft. ABSENT: distended, guarding, mass, organolmegaly, rebound, tenderness Rectal exam: PRESENT: deferred Extremities exam: PRESENT: full ROM. ABSENT: calf tenderness, clubbing, pedal edema Neurological exam: PRESENT: alert, awake, oriented to person, oriented to place , oriented to time, oriented to situation, other - Hard of hearing and blind. ABSENT: motor sensory deficit Psychiatric exam: PRESENT: appropriate affect, normal mood. ABSENT: homicidal ideation, suicidal ideation Skin exam: PRESENT: dry, intact, warm. ABSENT: cyanosis, rash Results Laboratory Results: 10/03/17 04:52 10/03/17 04:52 09/29/17 04:33 NT-Pro-B Natriuret Pep 3040 H Impressions: KUB X-Ray 09/26/17 16:40 IMPRESSION: NG tube in the stomach as described. Abdomen/Pelvis CT 09/27/17 00:00 IMPRESSION: No acute process is seen in the abdomen or pelvis. Findings as described. Chest X-Ray 10/03/17 12:00 IMPRESSION: Improved aeration in the left lung base, no residual consolidation. Minimal chronic interstitial markings. Qualifiers PATEINT BEING DISCHARGED WITH ANY OF THE FOLLOWING DIAGNOSIS?: No Plan Time Spent: Greater than 30 Minutes - Patient is a DNR is being discharged home with hospice.
== END 2017-10-04 14:13 | disposition hospice, home (50) | DRG 189 ==
LOC: ER 04:24 → EH 05:34 → 3W 07:02
PROVIDERS: ADMIT Family Medicine; ATTEND Family Medicine
PROC: 0D9670Z Drainage of Stomach with Drainage Device, Via Natural or Artificial Opening (ICD-10-PCS; principal; 2017-09-26)
DX: J96.01 Acute respiratory failure with hypoxia (principal); A41.9 Sepsis, unspecified organism; J18.9 Pneumonia, unspecified organism; I50.33 Acute on chronic diastolic (congestive) heart failure; J44.0 Chronic obstructive pulmonary disease with (acute) lower respiratory infection; J44.1 Chronic obstructive pulmonary disease with (acute) exacerbation; I11.0 Hypertensive heart disease with heart failure; Z51.5 Encounter for palliative care; Z66 Do not resuscitate; E87.6 Hypokalemia; E11.43 Type 2 diabetes mellitus with diabetic autonomic (poly)neuropathy; K31.84 Gastroparesis; K59.03 Drug induced constipation; T40.605A Adverse effect of unspecified narcotics, initial encounter; G89.29 Other chronic pain; M45.9 Ankylosing spondylitis of unspecified sites in spine; N40.0 Benign prostatic hyperplasia without lower urinary tract symptoms; I73.9 Peripheral vascular disease, unspecified; F32.9 Major depressive disorder, single episode, unspecified; H54.7 Unspecified visual loss; Z79.84 Long term (current) use of oral hypoglycemic drugs; Z79.899 Other long term (current) drug therapy; Z90.49 Acquired absence of other specified parts of digestive tract; Z96.651 Presence of right artificial knee joint; Z87.891 Personal history of nicotine dependence
CPT/HCPCS: 36415; 71010; 74000; 74176; 74177; 80048; 80053; 81001; 82550; 82803; 82962; 83605; 83735; 83880; 85025; 87040; 87070; 87086; 87088; 87186; 87205; 87804; 93005; 93010; 93306; 94640; 94799; 99285; G8978-GP; G8979-GP; J0456; J0696; J1650; J1815; J1940; J2270; J2405; J2543; J2765; J2920; J3480; J3490; J7030; J7060; J7620